=== PATIENT | male | born 1960 | race Caucasian/White ===

== ENCOUNTER 2017-07-07 10:35 | Emergency (ER) | payer OTHER ==
[2017-07-07] MEDS ORDERED: cloNIDine 0.1 MG TAB ONE (10:49)
[2017-07-07] MEDS ORDERED: methylPREDNISolone Sod Succ/PF 125 MG/2 ML VIAL ONE (10:56)
[2017-07-07] MEDS ORDERED: Water For Inject, Bacteriostat 30 ML ONE (10:56)
[2017-07-07] MEDS ORDERED: Magnesium Sulfate 2 GM/100 ML BAG ONE (10:56)
[2017-07-07 11:06] LABS: #Eosinphils 0.2 thou/uL (0.0-0.7); #Lymphocytes 1.8 thou/uL (1.20-3.40); #Monocytes 0.5 thou/uL (0.11-0.59); #Neutrophils 5.5 thou/uL (1.40-6.50); %Basophils 0.5 % (0.0-1.0); %Eosinophils 2.8 % (0.0-10.0); %Lymphocytes 22.4 % (21.0-51.0); %Monocytes 6.5 % (0.0-10.0); Hematocrit 50.3 % (42.0-52.0); Mean Platelet Volume 8.6 fL (7.4-10.4); Red Blood Cell (RBC) Count 5.24 mill/uL (4.70-6.10)
[2017-07-07 11:26] LABS: ALT (SGPT) 11 U/L (8-55); AST (SGOT) 12 U/L (5-34); Alkaline Phosphatase 78 U/L (40-150); Anion Gap 12 mmol/L (10-20); BUN (Urea Nitrogen) 21 mg/dL (8.4-25.7); Bilirubin, Total 0.5 mg/dL (0.2-1.2); CK (CPK) 75 U/L (30-200); Calc. Creatinine Clearance 0 mL/min (70-130); Calcium 9.3 mg/dL (7.8-10.44); Carbon Dioxide 23 mmol/L (22-29); Chloride 105 mmol/L (98-107); Estimated GFR-MDRD 59; Globulin 3.4 g/dL (2.4-3.5); Lipase 23 U/L (8-78); Protein, Total 7.3 g/dL (6.0-8.3)
[2017-07-07 11:29] LABS: Troponin I 0.047 ng/mL (< 0.028)
[2017-07-07] MEDS ORDERED: Labetalol HCl 100 MG/20 ML VIAL ONE (12:05)
--- NOTE | 2017-07-07 13:03 | RAD ---
PORTABLE AP CHEST XRAY: DATE: 07/07/17. HISTORY: Dyspnea. Onset of shortness of breath about 1 hour ago. COMPARISON: 12/09/16. FINDINGS: The cardiac silhouette and pulmonary vasculature are within normal limits. The lungs are clear. The osseous structures remain intact. There has been no interval change from the prior study. IMPRESSION: No acute cardiopulmonary process. POS: [facility]
== END 2017-07-07 17:10 | disposition short-term general hospital (02) ==
LOC: ERS 10:35
DX: J44.1 Chronic obstructive pulmonary disease with (acute) exacerbation (principal); I10 Essential (primary) hypertension; Z86.73 Personal history of transient ischemic attack (TIA), and cerebral infarction without residual deficits; E78.5 Hyperlipidemia, unspecified; F41.9 Anxiety disorder, unspecified; F32.9 Major depressive disorder, single episode, unspecified; F17.210 Nicotine dependence, cigarettes, uncomplicated; Z79.899 Other long term (current) drug therapy
CPT/HCPCS: 71010; 80053; 82550; 82553; 83690; 83880; 84484; 85025; 93005; 94640; 94760; 96365; 96375; J2930; J3475; J7620

== ENCOUNTER 2018-03-02 05:47 | Inpatient (IN) | payer OTHER ==
[2018-03-02 06:46] LABS: Prothrombin Time 13.4 SEC (12.0-14.7)
[2018-03-02 06:47] LABS: PTT 26.2 SEC (22.9-36.1)
[2018-03-02 06:50] LABS: #Eosinphils 0.1 thou/uL (0.0-0.7); #Lymphocytes 1.7 thou/uL (1.20-3.40); #Monocytes 1.5 thou/uL (0.11-0.59); #Neutrophils 11.4 thou/uL (1.40-6.50); %Basophils 0.2 % (0.0-1.0); %Eosinophils 0.9 % (0.0-10.0); %Lymphocytes 11.3 % (21.0-51.0); %Monocytes 9.9 % (0.0-10.0); %Neutrophils 77.7 % (42.0-75.0); Hemoglobin 15.3 g/dL (14.0-18.0); Mean Corpuscular HGB CONC 33.6 g/dL (32.0-36.0); Mean Corpuscular Hemoglobin 31.3 pg (27.0-31.0); Mean Corpuscular Volume 93.1 fL (78.0-98.0); Mean Platelet Volume 8.4 fL (7.4-10.4); Platelet Count 206 thou/uL (130-400); RBC Distribution Width 12.2 % (11.5-14.5); Red Blood Cell (RBC) Count 4.91 mill/uL (4.70-6.10); White Blood Cell (WBC) Count 14.6 thou/uL (4.8-10.8)
[2018-03-02 06:54] LABS: ALT (SGPT) 12 U/L (8-55); AST (SGOT) 17 U/L (5-34); Acetaminophen Less than 6.0 mcg/mL (10.0-30.0); Albumin 4.2 g/dL (3.5-5.0); Alcohol Less than 10 mg/dL (Less than 10); Alkaline Phosphatase 62 U/L (40-150); Anion Gap 16 mmol/L (10-20); BUN (Urea Nitrogen) 49 mg/dL (8.4-25.7); Bilirubin, Total 1.1 mg/dL (0.2-1.2); Calc. Creatinine Clearance 0 mL/min (70-130); Calcium 9.7 mg/dL (7.8-10.44); Carbon Dioxide 21 mmol/L (22-29); Chloride 105 mmol/L (98-107); Estimated GFR-MDRD 10; Globulin 3.1 g/dL (2.4-3.5); Glucose 124 mg/dL (70-105); Magnesium 2.6 mg/dL (1.6-2.6); Potassium 3.8 mmol/L (3.5-5.1); Protein, Total 7.3 g/dL (6.0-8.3); Salicylate Less than 8.0 mg/dL (15.0-30.0); Sodium 138 mmol/L (136-145)
[2018-03-02 07:01] LABS: CKMB 9.4 ng/mL (0-6.6); Troponin I 1.123 ng/mL (< 0.028)
[2018-03-02] MEDS ORDERED: Aspirin 300 MG Suppository ONE (07:02)
[2018-03-02 08:04] LABS: Bilirubin Negative (Negative); Blood, Urine Moderate (Negative); Clarity CLOUDY (Clear); Glucose, Urine (Dipstick) Negative (Negative); Leukocyte Small (Negative); Nitrite Negative (Negative); Protein, Urine (Dipstick) 100 mg/dL (Neg-Trace)
--- NOTE | 2018-03-02 08:06 | RAD ---
AP VIEW OF THE CHEST: INDICATION: Altered mental status. FINDINGS: There is cardiomegaly and pulmonary vascular congestion without appreciable pleural effusion or pneum othorax. No acute osseous abnormality is evident. IMPRESSION: Findings of congestive heart failure. POS: [facility]
[2018-03-02 08:09] LABS: Bacteria/HPF None Seen HPF (None Seen); Squamous Epithelial 21-50 HPF (0-3); WBC/HPF 21-50 HPF (0-3)
[2018-03-02 08:10] LABS: Specific Gravity, Urine 1.051 (1.002-1.036)
[2018-03-02 08:13] LABS: Hyaline Casts/LPF >50 HYALINE CAST LPF (0-3 Hyaline); Pathc Cast-AUWi Flag 35.61 (0-2.49); Yeast-AUWi Flag 39.2 (0-25.0)
[2018-03-02 08:15] LABS: Amphetamine Detected (NotDetected); Barbiturates Screen Not Detected (NotDetected); Benzodiazepine Screen Not Detected (NotDetected); Cocaine Metabolite Screen Not Detected (NotDetected); Medtox Control Line Valid? VALID (VALID); Medtox Reader # READER 4; Methadone Not Detected (NotDetected); Methamphetamine Detected (NotDetected); Opiate Screen Not Detected (NotDetected); Oxycodone Screen Not Detected (NotDetected); Phencyclidine (PCP) Not Detected (NotDetected); THC/Cannabinoid Screen Not Detected (NotDetected); Tricyclic Screen Not Detected (NotDetected)
[2018-03-02 08:24] LABS: Renal Epithelial 0-3 HPF (0-3); Transitional Epithelial 0-3 HPF (0-3)
[2018-03-02 08:25] LABS: Crystals/HPF 1+ CA OXALATE HPF (Negative)
[2018-03-02] MEDS ORDERED: cefTRIAXone\\ROCEPHIN 1 GM VIAL ONE (08:29)
--- NOTE | 2018-03-02 08:31 | CT ---
FINAL REPORT I agree with the preliminary report provided. No definite acute hemorrhage or hydrocephalus is prese nt. Subtle area of loss of cortical differentiation is seen involving the frontal cortex on image 23 of series 2 and involving the left insular ribbon that is better appreciated on the followup CTA exa mination. This is described in the CTA examination. There is interval remote lacunar infarction inv olving the left thalamus and the left caudate head. There are evolutionary changes involving the pre viously seen right periventricular white matter infarct seen within the right frontal lobe identified on the comparison MRI of the brain dated 04/16/11. There is severe chronic small-vessel white matter ischemic change. The skull and extracranial soft tissues are unremarkable. POS: [facility]
[2018-03-02] MEDS ORDERED: Azithromycin 500 MG VIAL ONE (08:57)
[2018-03-02 10:01] LABS: Troponin I 0.866 ng/mL (< 0.028)
[2018-03-02 13:41] LABS: Critical Call Chem Troponin I RESULT DECREASING; Troponin I 0.679 ng/mL (< 0.028)
[2018-03-02] MEDS ORDERED: ISOVUE-370 76%-LOCM 1 ML ONE (14:54)
[2018-03-02 15:35] VITALS: BMI 30.2
--- NOTE | 2018-03-02 16:20 | CT ---
PRELIMINARY REPORT/[facility]/EMERGENTY AFTER-HOURS PROCEDURE Addendum created by Brett López DO on 03/02/2018 6:51 AM Central Time ([place] & [place]) There is no cerebral mass effect, midline shift or evidence of intracranial hemorrhage. THIS REPORT C ONTAINS FINDINGS THAT MAY BE CRITICAL TO PATIENT CARE. The findings were verbally communicated via sharee ang conference with Dr. Yost at 6:50 AM CDT on 03/02/2018. The findings were acknowledged and u nderstood. Initial Report created on 03/02/2018 6:46 AM Central Time ([place] & [place]) CT Angiography Head With Intravenous Contrast CLINICAL HISTORY: 57 years old, male; Signs and symptoms; Weakness; Patient HX: Last seen normal 0200 by family. A&oxo. HX CVA with rt side deficits TECHNIQUE: Axial computed tomographic angiography images of the head with intravenous contrast using CT angiogra phy protocol. All CT scans at this facility use at least one of these dose optimization techniques: a utomated exposure control; mA and/or kV adjustment per patient size (includes targeted exams where do se is matched to clinical indication); or iterative reconstruction. MIP reconstructed images were created and reviewed. COMPARISON: CT Brain WO Con 2018-03-02 05:52 FINDINGS: Right internal carotid artery: There is 33% stenosis of the right paraclinoid internal carotid artery due to calcified plaque. No aneurysm. Right anterior cerebral artery: Unremarkable. No occlusion or significant stenosis. No aneurysm. Righ t middle cerebral artery: Unremarkable. No occlusion or significant stenosis. No aneurysm. Right posterior cerebral artery: Unremarkable. No occlusion or significant stenosis. No aneurysm. Right vertebral artery: Unremarkable as visualized. Left internal carotid artery: No acute process. Intracranial segment is patent with no significant st enosis. No aneurysm. Left anterior cerebral artery: Unremarkable. No occlusion or significant stenosis. No aneurysm. Left middle cerebral artery: There is an occluded middle M2 branch of the left middle cerebral artery . Left posterior cerebral artery: Unremarkable. No occlusion or significant stenosis. No aneurysm. Left vertebral artery: Unremarkable as visualized. Basilar artery: Unremarkable. No occlusion or significant stenosis. No aneurysm. Brain: There is a subtle 3.4 x 2.7 cm area of effacement of the supraganglionic left frontal cortex m easured on axial image 110. There is a 1.5 cm area of effacement of the insular ribbon on axial image 78. Findings are consistent with acute ischemic edema. The cerebral aspects score is 8/10 and this is less than one third of the left MCA territory. There is a severe burden of presumed chron ic small vessel ischemic disease hypodense lesions in the frontoparietal white matter and deep singh m atter structures. IMPRESSION: 1. There is a subtle 3.4 x 2.7 cm area of effacement of the supraganglionic left frontal cortex measu red on axial image 110. There is a 1.5 cm area of effacement of the insular ribbon on axial image 78. Findings are consistent with acute ischemic edema. The cerebral aspects score is 8/10 and this is le ss than one third of the left MCA territory. 2. There is an occluded middle M2 branch of the left middle cerebral artery. CT Angiography Neck With Intravenous Contrast TECHNIQUE: Axial computed tomographic angiography images of the neck with intravenous contrast using CT angiogra phy protocol. COMPARISON: No relevant prior studies available. FINDINGS: VASCULATURE: Right common carotid artery: Unremarkable. No significant stenosis. No dissection or occlusion. Right internal carotid artery: Unremarkable. Extracranial segment is patent with no significant steno sis. No dissection or occlusion. Right external carotid artery: Unremarkable. No occlusion. Right vertebral artery: Unremarkable. No significant stenosis. No dissection or occlusion. Left common carotid artery: Unremarkable. No significant stenosis. No dissection or occlusion. Left internal carotid artery: There is nonstenotic atherosclerotic calcification of the proximal left internal carotid artery. No dissection or occlusion. Left external carotid artery: Unremarkable. No occlusion. Left vertebral artery: Unremarkable. No significant stenosis. No dissection or occlusion. NECK: Bones/joints: There are multilevel spondylotic and disc degenerative changes of the spine. There is m ild to moderate spinal canal stenosis from C5-T1. No acute fracture. No dislocation. Soft tissues: Unremarkable as visualized. No mass. CAROTID STENOSIS REFERENCE USING NASCET CRITERIA: % ICA stenosis = (1 - narrowest ICA diameter/diameter of distal cervical ICA) x 100. Mild - <50% stenosis. Moderate - 50-69% stenosis. Severe - 70-94% stenosis. Near occlusion - 95-99% stenosis. Occluded - 100% stenosis. IMPRESSION: There is no high grade arterial stenosis, occlusion, dissection, or aneurysm in the neck. This interpretation was based upon the receipt of 1119 image(s). Thank you for allowing us to participate in the care of your patient. Dictated and Authenticated by: Brett López DO 03/02/2018 6:46 AM Central Time ([place] & [place]) FINAL REPORT I agree with the preliminary report provided. A subtle area of effacement is seen involving the supr acranial left frontal cortex on image 110. There is a small area of effacement and loss of cortical differentiation involving the anterior insular ribbon on image 78. There is new age-indeterminate la cunar infarction involving the left thalamus and left caudate head which was not present on the CT of the brain dated 04/15/11 nor 04/16/11 from [facility]. This may reflect interval chronic lacun ar strokes. There is right subcortical white matter infarct involving the right parietal region whic h was seen on the comparison examination. POS: [facility]
[2018-03-02] MEDS ORDERED: hydrALAZINE 20 MG/ML VIAL SLOW IVP PRN (17:39)
[2018-03-02] MEDS ORDERED: Labetalol HCl 100 MG/20 ML VIAL SLOW IVP PRN (17:39)
[2018-03-02] MEDS ORDERED: Sodium Chloride 0.45% 1,000 ML IV SCH (17:45)
[2018-03-02] MEDS: Heparin 10,000 UNITS/ 10 ML VIAL SLOW IVP SCH (19:14)
[2018-03-02] MEDS: Sodium Chloride 0.45% 1,000 ML IV SCH (19:28)
--- NOTE | 2018-03-02 21:33 | CON ---
DATE OF CONSULTATION: 03/02/2018 SERVICE: Pulmonary Medicine. REASON FOR CONSULTATION: IMCU patient. HISTORY OF PRESENT ILLNESS: The patient is a 57-year-old white male with past medical history signif icant for an ischemic stroke on the left side. The family says he has a residual limp and drags his foot a little bit. That being said, he is fully functional and independent in his ADLs. He was in h is usual state of health when he went to bed last night. At 2:00 in the morning, he was noted to be abnormal. He was brought to the emergency department. He demonstrates some features, possibly consi stent with a stroke. He seems to be neglecting much of his right side. That being said, he demonstr ates fairly decent strength. Because the time was unknown, he was not a candidate for TPA. His trop onins were elevated and he was initiated on a trial on a heparin drip. He cannot provide any additio nal elements of the history presently. He does not speak. He really does not follow directions on o ccasion, but sometimes he will. PAST MEDICAL HISTORY: 1. Hypertension. 2. Dyslipidemia. 3. Anxiety disorder. 4. Major depressive disorder. 5. History of stroke. 6. Tobacco abuse. 7. Medical noncompliance. PAST SURGICAL HISTORY: None. FAMILY HISTORY: Noncontributory. SOCIAL HISTORY: Positive for smoking 1 pack per day. He is greater than 97-kpch-troh history of doi ng so. He denies any significant alcohol use. He is positive on his urine drug screen for methamphe tamine. The family is not aware of any exposure to chemicals, dust asbestos or tuberculosis. ALLERGIES: No known drug allergies. MEDICATIONS: List of his inpatient medications was reviewed. No specific updates were made at this time. REVIEW OF SYSTEMS: This cannot be obtained as the patient is currently aphasic. LABORATORY DATA: WBC 14.6, hemoglobin 15.3, platelets 206,000. INR 1.0. D-dimer 0.3. Troponin is down trending from 1.1-0.7. BNP is low. Liver function studies are unremarkable. Lactate is low at 1.3. Creatinine 5.92, which is a significant change from baseline. BUN 49. Basic metabolic profil e is otherwise unremarkable. There are 21-50 white blood cells on his urinalysis. Hyaline casts are also identified. Urine drug screen is positive for amphetamines and methamphetamine. Otherwise, it is unremarkable. Plasma alcohol, acetaminophen, and salicylate are negative. IMAGING DATA: 1. Chest x-ray demonstrates pulmonary vascular congestion. Interstitial and alveolar opacifications are identified. 2. CT of the brain demonstrates subtle area of loss of cortical differentiation is seen in the front al cortex. 3. CT of the [place] of [place] demonstrates no obvious relieving lesion in the brain. There is no an eurysm. There is a subtle 3.4 x 2.7 area of effacement of the left frontal cortex. There is an occl uded branch of the left middle cerebral artery. ASSESSMENT: 1. Cerebrovascular accident. 2. Non-ST elevation myocardial infarction, likely secondary to stroke. 3. Acute kidney injury. 4. Polysubstance drug abuse with likely stimulant. PLAN: At this point, the patient has demonstrated hemodynamic stability. He can be transitioned out of Intermediate Care Unit to the stroke unit. He will need to work aggressively with physical thera py and occupational therapy in order to regain his function. Pulmonary or Critical Care will continu e to follow along for the time being.
[2018-03-03 02:02] LABS: #Eosinphils 0.2 thou/uL (0.0-0.7); #Lymphocytes 2.1 thou/uL (1.20-3.40); #Monocytes 1.3 thou/uL (0.11-0.59); #Neutrophils 9.9 thou/uL (1.40-6.50); %Eosinophils 1.8 % (0.0-10.0); %Lymphocytes 15.3 % (21.0-51.0); %Monocytes 9.5 % (0.0-10.0); %Neutrophils 73.4 % (42.0-75.0); Hemoglobin 15.4 g/dL (14.0-18.0); Mean Corpuscular HGB CONC 34.5 g/dL (32.0-36.0); Mean Corpuscular Volume 92.8 fL (78.0-98.0); Mean Platelet Volume 8.4 fL (7.4-10.4); Platelet Count 183 thou/uL (130-400); RBC Distribution Width 12.1 % (11.5-14.5); Red Blood Cell (RBC) Count 4.79 mill/uL (4.70-6.10); White Blood Cell (WBC) Count 13.4 thou/uL (4.8-10.8)
[2018-03-03] MEDS: Heparin 10,000 UNITS/ 10 ML VIAL SLOW IVP SCH (02:14)
[2018-03-03 02:24] LABS: Anion Gap 14 mmol/L (10-20); BUN (Urea Nitrogen) 46 mg/dL (8.4-25.7); Calc. Creatinine Clearance 42 mL/min (70-130); Calcium 9.3 mg/dL (7.8-10.44); Carbon Dioxide 22 mmol/L (22-29); Chloride 107 mmol/L (98-107); Estimated GFR-MDRD 24; Glucose 97 mg/dL (70-105); Magnesium 2.4 mg/dL (1.6-2.6); Phosphorus 3.5 mg/dL (2.3-4.7); Potassium 3.9 mmol/L (3.5-5.1); Sodium 139 mmol/L (136-145)
[2018-03-03] MEDS: Sodium Chloride 0.45% 1,000 ML IV SCH ×3 (05:52→17:49)
[2018-03-03] MEDS: Heparin 25,000 units/D5W 500 ML IV SCH (07:03)
--- NOTE | 2018-03-03 08:27 | HP ---
DATE OF ADMISSION: 03/02/2018 REASON FOR ADMISSION AND CHIEF COMPLAINT: Altered mental status. HISTORY OF PRESENT ILLNESS: Mr. Mckeon is a 57-year-old male with past medical history of hypertension and decreased LV function, was found to be unresponsive this morning. According to family, they spoke to him last night and he was in usual state of health. This morning, he was unresponsive. The patient usually lives in [place], but he went to the son's place this weekend and he was found unresponsive in his car at his son's place, so EMS was called. EMS found the patient unresponsive and the patient had eyes fixed to the left according to EMS, unable to see on the right side, found to be weak on the right side, so he was brought to the emergency room where he was evaluated and was found to have acute stroke with left middle cerebral artery occlusion. No obvious right-sided visual neglect and still weaker on the right side, right upper and lower extremities. The patient opens his eyes when called, but he is unable to say any word and fixed to see on the left side, not on the right. The patient was also found to have acute kidney injury with a creatinine of 4.9 and he had creatinine of 1.6 the last year. The patient also felt patient possibly has infiltrate in the right upper lobe or any pneumonia. The patient was given Rocephin and Zithromax and received aspirin as well as started on heparin infusion and admitted for further evaluation and management. PAST MEDICAL HISTORY: 1. Hypertension. 2. EKG revealed ejection fraction of 45%. Echo done last year in November. 3. Tobacco abuse. 4. The patient was noncompliant before and has history of anxiety and depression. PAST SURGICAL HISTORY: Nothing significant. CURRENT MEDICATIONS: The patient was supposed to be on amlodipine 10 mg daily, aspirin 81 mg daily, clonidine 0.2 b.i.d., simvastatin 20 mg daily, Zoloft 50 mg daily, losartan 50 mg daily. ALLERGIES: NKDA. FAMILY HISTORY: Nothing of interest. SOCIAL HISTORY: The patient lives with family. No history of alcohol and smokes 1 pack a day. REVIEW OF SYSTEMS: Unable to obtain. PHYSICAL EXAMINATION: GENERAL: He is not responsive. VITAL SIGNS: Temperature 98, pulse 86, respiration 20, blood pressure 140/70. HEENT: Head is normocephalic, atraumatic. Pupils equal and reactive to light. Nasopharynx is pale and dry. Hard and soft palate, no lesions seen. SKIN: Skin turgor decreased. NECK: Supple. No JVD. LUNGS: Bilateral air entry present, no rales, no rhonchi. HEART: S1, S2 regular. ABDOMEN: Soft, no distention, no tenderness. Normal bowel sounds present. RECTAL: Deferred. CENTRAL NERVOUS SYSTEM: The patient is not responding, not opens his eyes, but not able to say a word. He looks to the left side, unable to see on right side. He is able to move both right upper and lower extremity, but the power is 3-4/5 in right upper and lower extremities and 5/5 in left upper and lower extremities. Deep tendon reflex 2+ bilaterally. Plantars downgoing and on the left, but upgoing on the right. Sensory intact. LABORATORY DATA: CBC shows WBC 14.6, hemoglobin 15, hematocrit 45, platelets 206. Metabolic panel: Sodium 138, potassium 3.8, chloride 105, CO2 of 21, urea nitrogen 49, creatinine 5.9, glucose 124. CK-MB 9.4. Troponin I 1.123. Urinalysis negative. Urine toxicology screen positive for amphetamines and methamphetamines. Chest x-ray reported as pulmonary vascular congestion and cardiomegaly. CT scan of the brain, no evidence of acute infarct or bleeding. CT angio neck and brain revealed occlusion of left middle cerebral artery. EKG shows normal sinus rhythm, no acute ST-T wave changes seen. ASSESSMENT: 1. Acute ischemic stroke. 2. Left middle cerebral artery CVA 3. Acute kidney injury. 4. Altered mental status secondary to #1. 5. Gcr-ZR-wsivljy elevation myocardial infarction. 6. Questionable pneumonia, right upper lobe. 7. Hypertension. 8. Hyperlipidemia. PLAN: 1. Vital signs q.4 hours. 2. Activity: As tolerated. 3. Allergies: NKDA. 4. IV fluids D5 half at 70 mL per hour. 5. List home medications. 6. We will obtain Nephrology consult. 7. Neurology consult. 8. CBC and base met in the morning. 9. Labetalol 20 IVP q.6 hours p.r.n. 10. Cardiology consult. RENATE
--- NOTE | 2018-03-03 11:47 | PRG ---
DATE OF SERVICE: 03/03/2018 SERVICE: Pulmonary Medicine. INTERVAL HISTORY: There has been no neurologic recovery over the last 12 hours. He has not had any events either. There is no fevers. He is not having any nausea or vomiting. There has been no diar zoya. No reports of any bleeding. Otherwise, he is in a stable condition. He continues to have the right-sided hemineglect. He also has a fairly dense aphasia. That being said, he demonstrates exce llent strength throughout. PHYSICAL EXAMINATION: VITAL SIGNS: Currently afebrile with a T-max of 100.1, pulse 78, blood pressure 137/80, respirations 14, and saturation 98% on room air. GENERAL: The patient is awake and alert, in no apparent distress. LUNGS: Excellent air entry. Rhonchi are present, but clear with cough. There is no prolonged expir atory phase or wheezing appreciated. HEART: Normal rate, regular. ABDOMEN: Soft, nontender, nondistended. Bowel sounds are positive. MUSCULOSKELETAL: No cyanosis or clubbing. There is no pitting in the bilateral lower extremities. NEUROLOGIC: Grossly nonfocal. LABORATORY DATA: WBC 13.4, hemoglobin 15.4, platelets 183,000. PTT 54.1. Creatinine is beautifully down trending to 2.78, BUN 46. Basic metabolic profile, magnesium and phosphorus are all unremarkab le otherwise. Troponin down trending to 0.67. Urine drug screen is positive for amphetamines and me thamphetamine. Blood culture is growing coag negative Staph in 1/2, likely contaminant. Urine cultu re negative to date. ASSESSMENT: 1. Cerebrovascular accident. 2. Non-ST elevation myocardial infarction, secondary to stroke. 3. Acute kidney injury. 4. Polysubstance drug abuse, would likely stimulant. PLAN: The patient is currently neurologically stable. At this point, he can be transitioned to the stroke unit. He has no further requirements for inpatient Pulmonary or Critical Care opinion. If he is not swallowing in 1-2 days, the family will need to discuss whether or not a Dobbhoff tube or PEG tube is indicated in this patient. Truth be told, I would likely give him at least 3 or 4 weeks to determine whether or not he is going to make any progress from a neurologic perspective. We will con tinue IV hydration for the time being. His acute kidney injury was likely associated with prerenal i ssues. At this point, he has no further requirements for inpatient Pulmonary or Critical Care opinio n and we will sign off.
[2018-03-03] MEDS: Dextrose 5 %-0.45 % NaCl 1,000 ML IV SCH (18:26)
[2018-03-04] MEDS: Heparin 25,000 units/D5W 500 ML IV SCH ×2 (00:06→15:53)
[2018-03-04] MEDS: Heparin 10,000 UNITS/ 10 ML VIAL SLOW IVP SCH (00:16)
--- NOTE | 2018-03-04 04:44 | CON ---
DATE OF CONSULTATION: 03/03/2018 REFERRING PHYSICIAN: Dr. Martin Sim. REASON FOR CONSULTATION: Right-sided weakness. HISTORY OF PRESENT ILLNESS: Mr. Mckeon is a pleasant 57-year-old male who has been consulte d for evaluation of right-sided weakness. The patient's history is obtained from patient's girlfrien erna who was present at bedside. She reports that patient was found to be unresponsive this morning. Yonny forrest was in his usual state of health last night. This morning when she found him unresponsive, she had called EMS. He was brought to the [facility]. After being arrived here, he was note d to have weakness on his right side and was aphasic. He had a CT scan of the head done, which had s hown singh white differentiation loss on the left MCA distribution suggestive of acute ischemic infarc t. For this reason, he was not a candidate for IV tPA. He was also not a candidate for endovascular therapy due to findings of the CT scan. According to the family, there has not been any significant changes in his neurological function since admitted to the hospital. PAST MEDICAL HISTORY, PAST SURGICAL HISTORY, FAMILY HISTORY, SOCIAL HISTORY, CURRENT MEDICATIONS, ALL ERGIES: Could not be obtained. REVIEW OF SYSTEMS: Unable to perform. PHYSICAL EXAMINATION: VITAL SIGNS: Blood pressure of 141/70, pulse of 81, temperature of 98.8, respirations of 15, O2 sats 92% on room air. GENERAL: Well-developed, well-nourished male in no apparent distress. RESPIRATORY: Clear to auscultation bilaterally. CARDIOVASCULAR: Regular rate and rhythm. NEUROLOGIC: Mental status: The patient is awake and alert, but nonverbal. He does not follow any c ommands. Cranial nerves: Pupils are 3 mm and reactive. He has a left gaze deviation with a right h emineglect. There is a right facial droop noted. Motor exam showed flaccid right upper and right lo wer extremity. He has 0/5 strength in the right upper and right lower extremity. Sensory: He does not withdraw to pain on the right upper extremity, but does withdraw on the right lower extremity. LABORATORY DATA: Reviewed, which included CBC, coag panel, CMP, urinalysis, and [facility] WBC of 13.4, PTT of 67.6, BUN of 46, creatinine was 2.78. Troponin of 0.679. Urinalysis with small leukocyte esterase and 21-50 WBC. Urine drug screen was positive for methamp hetamines. IMAGING STUDIES: CT head without contrast was reviewed, which showed singh white differentiation loss and left MCA distribution suggestive of acute ischemic infarct. IMPRESSION: 1. Acute left middle cerebral artery distribution ischemic infarct. 2. Non-ST elevation myocardial infarction. 3. Polysubstance abuse. ASSESSMENT AND PLAN: Mr. Mckeon is a pleasant 57-year-old male who presented with an acute onset of right-sided weakness. Due to the CT scan already showing signs of ischemia and his last leta e well known was more than 8 hours, he was not a candidate for IV or TPA or endovascular therapy. At this time, I will recommend consulting PT, OT, speech therapy. I would recommend making him n.p.o. until further cleared by speech therapy. I agree with continuing heparin infusion stroke protocol. Continue supportive care. Thank you for consultation.
[2018-03-04 05:23] LABS: #Lymphocytes 1.5 thou/uL (1.20-3.40); #Monocytes 1.2 thou/uL (0.11-0.59); #Neutrophils 10.2 thou/uL (1.40-6.50); %Basophils 0.1 % (0.0-1.0); %Eosinophils 0.2 % (0.0-10.0); %Lymphocytes 11.4 % (21.0-51.0); %Neutrophils 79.2 % (42.0-75.0); Hemoglobin 14.4 g/dL (14.0-18.0); Mean Corpuscular HGB CONC 34.7 g/dL (32.0-36.0); Mean Corpuscular Hemoglobin 32.1 pg (27.0-31.0); Mean Corpuscular Volume 92.6 fL (78.0-98.0); Mean Platelet Volume 8.5 fL (7.4-10.4); Platelet Count 164 thou/uL (130-400); RBC Distribution Width 11.6 % (11.5-14.5); Red Blood Cell (RBC) Count 4.49 mill/uL (4.70-6.10); White Blood Cell (WBC) Count 12.9 thou/uL (4.8-10.8)
[2018-03-04] MEDS: Dextrose 5 %-0.45 % NaCl 1,000 ML IV SCH ×3 (05:26→18:23)
[2018-03-04 05:56] LABS: Anion Gap 13 mmol/L (10-20); BUN (Urea Nitrogen) 23 mg/dL (8.4-25.7); Calc. Creatinine Clearance 89 mL/min (70-130); Calcium 8.3 mg/dL (7.8-10.44); Carbon Dioxide 19 mmol/L (22-29); Chloride 103 mmol/L (98-107); Estimated GFR-MDRD 56; Glucose 483 mg/dL (70-105); Potassium 3.5 mmol/L (3.5-5.1); Sodium 131 mmol/L (136-145)
[2018-03-04] MEDS ORDERED: hydrALAZINE 20 MG/ML VIAL SLOW IVP PRN (09:44)
--- NOTE | 2018-03-04 14:52 | CON ---
DATE OF CONSULTATION: 03/04/2018 REASON FOR CONSULTATION: Hypertension. HISTORY OF PRESENT ILLNESS: Mr. Mckeon is an unfortunate 57-year-old gentleman who recently had a str maria e. This is followed by previous stroke. He continues to smoke and per his sister continues to use methamphetamine. He also has been noncompliant with his blood pressure medications. He recently presented with right-sided weakness. History is mainly obtained from his sister who is c urrently present. No chest pain or pressure noted. PAST MEDICAL HISTORY: As above including anxiety disorder, depression, stroke, tobacco abuse, noncom pliance, hypertension, hyperlipidemia. SOCIAL HISTORY: As above. ALLERGIES: None. MEDICATIONS: None. REVIEW OF SYSTEMS: Unobtainable. PHYSICAL EXAMINATION: VITAL SIGNS: Blood pressure 155/90, pulse 73, temperature 98.3. GENERAL: Right-sided weakness. NEUROLOGIC: The patient is alert and oriented times 3 with no focal neurologic deficits. HEENT: Sclerae without icterus. Mouth has moist mucous membranes with normal pallor. NECK: No JVD. Carotid upstroke brisk. No bruits bilaterally. LUNGS: Clear to auscultation with unlabored respirations. BACK: No scoliosis or kyphosis. CARDIAC: Regular rate and rhythm with normal S1 and S2. No S3 or S4 noted. No significant rubs, mu rmurs, thrills, or gallops noted throughout the precordium. PMI is not displaced. There is no osito ternal heave. ABDOMEN: Soft, nontender, nondistended. No peritoneal signs present. No hepatosplenomegaly. No ab normal striae. EXTREMITIES: 2+ femoral and 2+ dorsalis pedis pulses. No cyanosis, clubbing, or edema. SKIN: No gross abnormalities. PERTINENT LABS: Hemoglobin 14.4, creatinine 1.32. Peak troponin 1.1. IMPRESSION: 1. Recent stroke. 2. Hypertensive urgency. 3. Noncompliance. 4. Methamphetamine use. RECOMMENDATIONS: At this point, I recommend conservative therapy. Echo with Doppler to follow. Unf ortunately, given his noncompliance, continued tobacco and methamphetamine use. Options appear limit ed. We can certainly manage his blood pressure medicines while in the hospital, but I am concerned a bout his compliance at home. Would not recommend aggressive blood pressure treatment due to recent s troke. Currently, blood pressure is 150-160, which appears stable.
[2018-03-04] MEDS: Atorvastatin Calcium 10 MG TAB PO SCH (21:34)
[2018-03-04] MEDS: cloNIDine 0.2 MG TAB PO SCH (21:34)
[2018-03-05 05:26] LABS: #Lymphocytes 1.3 thou/uL (1.20-3.40); #Monocytes 1.1 thou/uL (0.11-0.59); %Basophils 0.1 % (0.0-1.0); %Eosinophils 0.4 % (0.0-10.0); %Lymphocytes 12.7 % (21.0-51.0); %Monocytes 10.8 % (0.0-10.0); %Neutrophils 76.1 % (42.0-75.0); Hemoglobin 14.9 g/dL (14.0-18.0); Mean Corpuscular HGB CONC 33.9 g/dL (32.0-36.0); Mean Corpuscular Hemoglobin 31.2 pg (27.0-31.0); Mean Corpuscular Volume 91.9 fL (78.0-98.0); Platelet Count 164 thou/uL (130-400); RBC Distribution Width 11.8 % (11.5-14.5); Red Blood Cell (RBC) Count 4.76 mill/uL (4.70-6.10); White Blood Cell (WBC) Count 10.4 thou/uL (4.8-10.8)
[2018-03-05 05:39] LABS: Anion Gap 11 mmol/L (10-20); BUN (Urea Nitrogen) 21 mg/dL (8.4-25.7); Calc. Creatinine Clearance 103 mL/min (70-130); Calcium 9.1 mg/dL (7.8-10.44); Carbon Dioxide 23 mmol/L (22-29); Chloride 103 mmol/L (98-107); Estimated GFR-MDRD 66; Glucose 115 mg/dL (70-105); Sodium 133 mmol/L (136-145)
[2018-03-05] MEDS: Dextrose 5 %-0.45 % NaCl 1,000 ML IV SCH ×2 (06:47→15:17)
[2018-03-05] MEDS: Heparin 25,000 units/D5W 500 ML IV SCH (06:51)
--- NOTE | 2018-03-05 07:20 | PDOC.CTH ---
Cardiology Progress Note - Subjective Pt sleepi. Non-verbal today - Objective Vital Signs Temp Pulse Resp BP BP Pulse Ox 03/05/18 04:00 98.5 F 56 L 18 151/83 H 99 03/05/18 00:00 99.8 F H 72 19 176/86 H 100 03/04/18 21:34 188/91 H 03/04/18 20:36 98.7 F 69 18 188/91 H 97 03/04/18 20:20 98.7 F 69 18 97 Admit Weight 223 lb 1 oz Weight 223 lb 1 oz 03/04/18 03/05/18 03/06/18 06:59 06:59 06:59 Intake Total 1690.4 Balance 1690.4 - Physical Examination General/Neuro: NAD Neck: no JVD present Lungs: CTA, unlabored respirations Heart: RRR Extremities: + edema B - Labs Result Diagrams: 03/05/18 04:49 03/05/18 04:49 Troponin/CKMB CK-MB (CK-2) 9.4 ng/mL (0-6.6) H* 03/02/18 06:30 Troponin I 0.679 ng/mL (< 0.028) H* 03/02/18 13:03 - Assessment/Plan 1. CVA 2. HTN, uncontrolled 3. Non-compliance 4. methamphetamine use BP improved this am. Keep BP higher than normal for CAD given recent CVA Troponin likely demand ischemia and not primary event. Unsure pt would benefit from aggressive CV management unless pt has an acute insult given the above
--- NOTE | 2018-03-05 10:59 | CON ---
DATE OF CONSULTATION: 03/04/2018 HISTORY: acute kidney injury has improved /smoking . With a combination of po lysubstance abuse creatinine 1.3 due to discontinuation of JOSEF inhibitors and with IV volume re pletion. REVIEW OF SYSTEMS: Not obtainable since the patient has to have speech. Denies any chest pain , shortness of breath, or syncopal episode. He does have some weakness of his extremities. No nause a, no vomiting, no fever or chills . MEDICATIONS: Heparin drip per hour, hydralazine 20 mg IV q.6 hours, Levaquin 750 mg q.24 hours . PAST MEDICAL HISTORY: The patient has diagnosis of NC, history of hypertension, coronary arter y disease, previously status post CVA, depression, anxiety, cancer in remission. PAST SURGICAL HISTORY: Status post prostate biopsy, status post prostatectomy. SOCIAL HISTORY: The patient lives in but currently living with his mother. The patient smoked for 50 years, one pack to half a pack a day, uses recreational drugs - methamphetamine. He is medic ally disabled. ALLERGIES: None. IMMUNIZATIONS: Not up to date. HOSPITALIZATIONS: Please see past medical history. PHYSICAL EXAMINATION: VITAL SIGNS: Blood pressure is 155/90, heart rate 73, respiratory rate 20, temperature 98.3, pulse o ximetry 100% on room air. GENERAL: Awake, lethargic, not in distress. There is a paucity of speech with this patient. SKIN: Adequate turgor. HEENT: He has pinkish conjunctiva. Sclerae nonicteric. NECK: No neck mass, no carotid bruits, no JVD. CHEST: No deformities. LUNGS: Clear breath sounds, no wheezing or crackles. HEART: Normal sinus rhythm. No murmur, gallops, no rubs. ABDOMEN: Globular, soft, nontender. EXTREMITIES: No edema, no deformities. LABORATORY DATA: Laboratories of 03/02/2018, the specific gravity was 1051. No pigmented granular c asts, hyaline casts greater than 50, rbc 7-10, protein is 100. On 03/02/2018, BUN 49, creatinine 5.9 2; on 03/03/2018, creatinine 2.78; on 03/04/2018, creatinine is 1.32. Sodium 131, potassium 3.5, chl oride 103, carbon dioxide 19, BUN 23. On 03/02/2018, of the brain shows chronic small vessel disease, evolutionary changes. CT circl e of Vu angio with contrast shows subtle 3.4 x 2.7 cm area of effacement of the supraganglionic l eft frontal cortex as well as effacement of insular ribbon on image 78. Findings suggestive of acute ischemic edema. ASSESSMENT AND PLAN: 1. Acute kidney injury. This is a hemodynamically mediated dysfunction. I suggested with a v joseline concentrated specific gravity of 1038. IV hydration was given as well as JOSEF inhibitors was disc ontinued with improvement of the renal function. For the moment, I agree with current management. T here is no indication for any dialytic intervention. 2. Status post cerebrovascular accident. Neurology following. 3. Hypertension. Adjust blood pressure medications as needed. I agree with current management.
[2018-03-05] MEDS: Aspirin 81 mg Enteric Coated Tablet PO SCH (12:48)
[2018-03-05] MEDS: Amlodipine 10 MG TAB PO SCH (12:49)
[2018-03-05] MEDS: Lisinopril 10 MG TAB PO SCH (12:50)
[2018-03-05] MEDS: cloNIDine 0.2 MG TAB PO SCH ×2 (12:50→21:28)
[2018-03-05] MEDS: Atorvastatin Calcium 10 MG TAB PO SCH (21:28)
[2018-03-06] MEDS: Heparin 25,000 units/D5W 500 ML IV SCH (00:03)
[2018-03-06 04:38] LABS: #Eosinphils 0.1 thou/uL (0.0-0.7); #Lymphocytes 1.7 thou/uL (1.20-3.40); #Monocytes 1.2 thou/uL (0.11-0.59); #Neutrophils 7.9 thou/uL (1.40-6.50); %Basophils 0.1 % (0.0-1.0); %Eosinophils 0.7 % (0.0-10.0); %Lymphocytes 15.1 % (21.0-51.0); %Monocytes 11.4 % (0.0-10.0); %Neutrophils 72.8 % (42.0-75.0); Hemoglobin 15.3 g/dL (14.0-18.0); Mean Corpuscular Hemoglobin 31.2 pg (27.0-31.0); Mean Corpuscular Volume 91.8 fL (78.0-98.0); Mean Platelet Volume 8.7 fL (7.4-10.4); Platelet Count 149 thou/uL (130-400); RBC Distribution Width 11.4 % (11.5-14.5); Red Blood Cell (RBC) Count 4.88 mill/uL (4.70-6.10); White Blood Cell (WBC) Count 10.9 thou/uL (4.8-10.8)
[2018-03-06 04:55] LABS: Anion Gap 13 mmol/L (10-20); BUN (Urea Nitrogen) 24 mg/dL (8.4-25.7); Calc. Creatinine Clearance 104 mL/min (70-130); Calcium 9.4 mg/dL (7.8-10.44); Carbon Dioxide 22 mmol/L (22-29); Chloride 104 mmol/L (98-107); Estimated GFR-MDRD 66; Glucose 105 mg/dL (70-105); Potassium 4.1 mmol/L (3.5-5.1); Sodium 135 mmol/L (136-145)
--- NOTE | 2018-03-06 06:44 | PDOC.CTH ---
Cardiology Progress Note - Subjective Pt non verbal with me. Awakens to voice only. - Objective Vital Signs Temp Pulse Resp BP BP Pulse Ox 03/06/18 04:00 98.9 F 62 18 161/82 H 98 03/06/18 00:00 99.0 F 67 18 149/95 H 97 03/05/18 21:28 99.0 F 71 18 134/79 97 03/05/18 20:00 99.0 F 71 18 134/79 97 Admit Weight 223 lb 1 oz Weight 223 lb 1 oz 03/04/18 03/05/18 03/06/18 06:59 06:59 06:59 Intake Total 1690.4 705.6 Balance 1690.4 705.6 - Physical Examination Neck: no JVD present Lungs: CTA, unlabored respirations Heart: PMI normal, RRR Abdomen: NT/ND, soft Extremities: + femoral B - Telemetry Telemetry Rhythm: sr - Labs Result Diagrams: 03/06/18 04:26 03/06/18 04:26 Troponin/CKMB CK-MB (CK-2) 9.4 ng/mL (0-6.6) H* 03/02/18 06:30 Troponin I 0.679 ng/mL (< 0.028) H* 03/02/18 13:03 - Assessment/Plan 1. CVA 2. HTN, uncontrolled 3. Non-compliance 4. methamphetamine use On norvasc, ACEI and clonidine BP stable ok from my standpoint to stop heparin Add BB Prognosis poor disposition?
[2018-03-06] MEDS ORDERED: Aspirin 325 mg Enteric Coated Tablet PO SCH (09:15)
[2018-03-06] MEDS: Lisinopril 10 MG TAB PO SCH ×2 (11:53→21:04)
[2018-03-06] MEDS: Amlodipine 10 MG TAB PO SCH (11:55)
[2018-03-06] MEDS: cloNIDine 0.2 MG TAB PO SCH (12:00)
[2018-03-06] MEDS: Aspirin 81 mg Enteric Coated Tablet PO SCH (14:58)
--- NOTE | 2018-03-06 15:04 | PQF ---
CLINICAL DOCUMENTATION IMPROVEMENT CLARIFICATION FORM: ICD-10 Updated PLEASE DO AN ADDENDUM TO THE PROGRESS NOTE WITH ANY DOCUMENTATION UPDATES OR ADDITIONS AND CARRY THROUGH TO DC SUMMARY. THANK YOU. DATE: 03/06/18 ATTN: Dr. Sim Please exercise your independent, professional judgment in responding to the clarification form. Clinical indicators are provided on the bottom of this form for your review Please check appropriate box(s): AMI TYPE: [ ] NSTEMI [ ] AMI Type II [ y] Demand ischemia [ ] Other diagnosis [ ] Unable to determine In addition, please specify: Present on Admission (POA): [ y ] Yes [ ] No [ ] Unable to determine CLINICAL INDICATORS - SIGNS / SYMPTOMS / LABS LABS 03/02: CK-MB 9.4 TROPONIN I 1.123 0.866 0.679 PULMONOLOGY CONSULT 03/02: TROPONIN IS DOWN TRENDING FROM 1.1- 0.7 NON-STEMI, LIKELY SECONDARY TO STROKE. PN 03/03-: NSTEMI CARDIOLOGY PN 03/05: TROPONIN LIKELY DEMAND ISCHEMIA AND NOT PRIMARY EVENT. RISKS: H&P 03/02: ACUTE ISCHEMIC STROKE. L MIDDLE CEREBRAL ARTERY CVA. QUANG. AMS. [id number] ELEVATION MYOCARDIAL INFARCTION. HTN CARDIOLOGY PN 03/05: METHAMPHETAMINE USE. TREATMENT: ORDER 03/04: HEPARIN GTT. DC'D 03/06 ORDER 03/04: ECOTRIN 81 MG PO DAILY. DC'D 03/06 Thank you, Xiomara (This form is maintained as a part of the permanent medical record) 2015 [employer], [employer]. All Rights Reserved Xiomara Martinez RN, BSN [email or web address] Office: [phone] [facility]
[2018-03-06] MEDS: cloNIDine 0.1 MG TAB PO SCH (21:04)
[2018-03-06] MEDS: Atorvastatin Calcium 10 MG TAB PO SCH (21:04)
[2018-03-06] MEDS ORDERED: Nystatin 500,000 UNITS/5 ML UDCUP PO SCH (21:30)
[2018-03-07 05:31] LABS: #Eosinphils 0.2 thou/uL (0.0-0.7); #Lymphocytes 1.6 thou/uL (1.20-3.40); #Neutrophils 7.1 thou/uL (1.40-6.50); %Basophils 0.4 % (0.0-1.0); %Lymphocytes 15.6 % (21.0-51.0); %Monocytes 10.3 % (0.0-10.0); %Neutrophils 71.7 % (42.0-75.0); Hemoglobin 15.6 g/dL (14.0-18.0); Mean Corpuscular HGB CONC 35.6 g/dL (32.0-36.0); Mean Corpuscular Hemoglobin 32.3 pg (27.0-31.0); Mean Corpuscular Volume 90.9 fL (78.0-98.0); Platelet Count 167 thou/uL (130-400); RBC Distribution Width 11.6 % (11.5-14.5); Red Blood Cell (RBC) Count 4.84 mill/uL (4.70-6.10)
[2018-03-07 05:45] LABS: Anion Gap 11 mmol/L (10-20); BUN (Urea Nitrogen) 28 mg/dL (8.4-25.7); Calc. Creatinine Clearance 98 mL/min (70-130); Calcium 9.5 mg/dL (7.8-10.44); Carbon Dioxide 23 mmol/L (22-29); Chloride 104 mmol/L (98-107); Estimated GFR-MDRD 62; Glucose 88 mg/dL (70-105); Sodium 134 mmol/L (136-145)
--- NOTE | 2018-03-07 05:53 | PDOC.CTH ---
Cardiology Progress Note - Subjective No signfiicant changes overnight - Objective Vital Signs Temp Pulse Resp BP BP BP Pulse Ox 03/07/18 04:00 98.5 F 63 18 141/80 H 97 03/06/18 23:33 98.9 F 57 L 20 149/97 H 95 03/06/18 21:04 170/100 H 03/06/18 20:55 98.9 F 57 L 20 97 03/06/18 20:00 98.3 F 61 18 139/89 97 Admit Weight 223 lb 1 oz Weight 223 lb 1 oz 03/05/18 03/06/18 03/07/18 06:59 06:59 06:59 Intake Total 705.6 Balance 705.6 - Labs Result Diagrams: 03/07/18 05:00 03/07/18 05:00 Troponin/CKMB CK-MB (CK-2) 9.4 ng/mL (0-6.6) H* 03/02/18 06:30 Troponin I 0.679 ng/mL (< 0.028) H* 03/02/18 13:03 - Assessment/Plan 1. CVA 2. HTN, uncontrolled 3. Non-compliance 4. methamphetamine use Pt on norvasc ACEI and ASA, statin hold BB secondary to low HR May consider adding low dose diuretic if needed. BP currently stable in the 140 's. Not sure pt will be compliant with meds at home (even less compliant with the increase in number of meds Rx). Will need to simplify medications Increase troponin may be secondary to recent CVA vs demand ischemia. Rx treatment
[2018-03-07] MEDS: cloNIDine 0.1 MG TAB PO SCH ×2 (09:45→23:27)
[2018-03-07] MEDS: Aspirin 325 mg Enteric Coated Tablet PO SCH (09:46)
[2018-03-07] MEDS: Amlodipine 10 MG TAB PO SCH (09:46)
[2018-03-07] MEDS: Lisinopril 10 MG TAB PO SCH ×2 (09:46→23:27)
[2018-03-07] MEDS: Nystatin 500,000 UNITS/5 ML UDCUP PO SCH ×2 (09:47→23:27)
--- NOTE | 2018-03-07 10:25 | PQF ---
CLINICAL DOCUMENTATION IMPROVEMENT CLARIFICATION FORM: ICD-10 Updated PLEASE DO AN ADDENDUM TO THE PROGRESS NOTE WITH ANY DOCUMENTATION UPDATES OR ADDITIONS AND CARRY THROUGH TO DC SUMMARY. THANK YOU. DATE: 03/07/18 ATTN: Dr. Sim Please exercise your independent, professional judgment in responding to the clarification form. Clinical indicators are provided on the bottom of this form for your review Please check appropriate box(s) to clarify if the following diagnosis has been ruled in or ruled out: QUESTIONABLE PNEUMONIA, R UPPER LOBE [ ] Ruled in diagnosis [ ] Continue to treat [ ] Resolved [ Y ] Ruled out diagnosis [ ] Cannot rule out diagnosis [ ] Other diagnosis [ ] Unable to determine In addition, please specify: Present on Admission (POA): [ Y ] Yes [ ] No [ ] Unable to determine For continuity of documentation, please document condition throughout progress notes and discharge summary. Thank You. CLINICAL INDICATORS - SIGNS / SYMPTOMS / LABS ED RECORD 03/02: R UPPER LOBE PNEUMONIA H&P 03/02: THE PT FELT POSSIBLY HAS INFILTRATE IN THE R UPPER LOBE OR ANY PNEUMONIA. QUESTIONABLE PNEUMONIA, R UPPER LOBE. RISKS: H&P 03/02: EMS FOUND THE PT UNRESPONSIVE. ACUTE ISCHEMIC STROKE. L MIDDLE CEREBRAL ARTERY CVA. QUANG. AMS, HTN. TREATMENT: ER RECORD 03/02: AZITHROMYCIN 500 MG IV & ROCEPHIN 1 GRAM IV GIVEN. CPOE 03/02: LEVAQUIN 750MG IV Q 24 HR. DC'D 03/06. Thank you, Xiomara (This form is maintained as a part of the permanent medical record) 2014 [employer]. All Rights Reserved Xiomara Martinez RN, BSN [email or web address] Office: [phone] [facility]
[2018-03-07] MEDS: Atorvastatin Calcium 10 MG TAB PO SCH (23:26)
[2018-03-08 05:18] LABS: #Eosinphils 0.3 thou/uL (0.0-0.7); #Monocytes 1.1 thou/uL (0.11-0.59); #Neutrophils 6.9 thou/uL (1.40-6.50); %Basophils 0.5 % (0.0-1.0); %Eosinophils 2.8 % (0.0-10.0); %Lymphocytes 18.9 % (21.0-51.0); %Monocytes 10.9 % (0.0-10.0); %Neutrophils 66.9 % (42.0-75.0); Hemoglobin 15.4 g/dL (14.0-18.0); Mean Corpuscular HGB CONC 34.8 g/dL (32.0-36.0); Mean Corpuscular Hemoglobin 31.8 pg (27.0-31.0); Mean Corpuscular Volume 91.1 fL (78.0-98.0); Mean Platelet Volume 8.7 fL (7.4-10.4); Platelet Count 178 thou/uL (130-400); RBC Distribution Width 11.4 % (11.5-14.5); Red Blood Cell (RBC) Count 4.86 mill/uL (4.70-6.10); White Blood Cell (WBC) Count 10.3 thou/uL (4.8-10.8)
[2018-03-08 05:21] LABS: Anion Gap 13 mmol/L (10-20); BUN (Urea Nitrogen) 31 mg/dL (8.4-25.7); Calc. Creatinine Clearance 97 mL/min (70-130); Calcium 9.5 mg/dL (7.8-10.44); Carbon Dioxide 21 mmol/L (22-29); Chloride 104 mmol/L (98-107); Estimated GFR-MDRD 61; Glucose 86 mg/dL (70-105); Potassium 4.1 mmol/L (3.5-5.1); Sodium 134 mmol/L (136-145)
[2018-03-08] MEDS: Amlodipine 10 MG TAB PO SCH (08:55)
[2018-03-08] MEDS: cloNIDine 0.1 MG TAB PO SCH (08:55)
[2018-03-08] MEDS: Aspirin 325 mg Enteric Coated Tablet PO SCH (08:55)
[2018-03-08] MEDS: Nystatin 500,000 UNITS/5 ML UDCUP PO SCH ×2 (08:56→22:40)
[2018-03-08] MEDS: Lisinopril 10 MG TAB PO SCH ×2 (08:56→22:35)
--- NOTE | 2018-03-08 11:22 | PDOC.CTH ---
Cardiology Progress Note - Subjective Resting comfortably. No complains. - Objective Vital Signs Temp Pulse Resp BP BP Pulse Ox 03/08/18 08:00 98.9 F 54 L 16 131/87 98 03/08/18 03:16 99.4 F 69 20 124/86 96 03/07/18 23:27 135/91 H Admit Weight 223 lb 1 oz Weight 223 lb 1 oz - Physical Examination General/Neuro: alert & oriented x3 Lungs: CTA Heart: RRR Abdomen: NT/ND Extremities: other: (no edema) - Telemetry Telemetry Rhythm: Sinus lucila 50s. Drops to 48 while sleeping - Labs Result Diagrams: 03/08/18 05:02 03/08/18 05:02 Troponin/CKMB CK-MB (CK-2) 9.4 ng/mL (0-6.6) H* 03/02/18 06:30 Troponin I 0.679 ng/mL (< 0.028) H* 03/02/18 13:03 - Assessment/Plan 1. CVA 2. HTN - improved control 2. Bradycardia - stable and asymptomatic. Drops to the 40s while sleeping. no intervention needed 4. Non-compliance 5. History of methamphetamine use Currently doing well. no changes to care or meds.
--- NOTE | 2018-03-08 13:55 | EKG ---
Test Reason : Blood Pressure : / mmHG Vent. Rate : 078 BPM Atrial Rate : 078 BPM P-R Int : 226 ms QRS Dur : 096 ms QT Int : 406 ms P-R-T Axes : 056 000 131 degrees QTc Int : 462 ms Sinus rhythm with 1st degree A-V block with Premature atrial complexes Inferior infarct , age undetermined T wave abnormality, consider lateral ischemia Abnormal ECG No ST elevation/ND Inverted T wave V5, V6, aVL Confirmed by KISHAN DELVALLE D.O. ([id number]), staff editor DAMIÁN KEARNS ([id number]) on 03/08/2018 1:55:27 PM Referred By: Confirmed By:KISHAN DELVALLE D.O.
[2018-03-08] MEDS ORDERED: cloNIDine 0.1 MG TAB PO SCH (21:00)
[2018-03-08] MEDS: Atorvastatin Calcium 10 MG TAB PO SCH (22:33)
[2018-03-09 05:37] LABS: #Basophils 0.1 thou/uL (0.0-0.2); #Eosinphils 0.2 thou/uL (0.0-0.7); #Lymphocytes 1.9 thou/uL (1.20-3.40); #Monocytes 0.8 thou/uL (0.11-0.59); #Neutrophils 6.8 thou/uL (1.40-6.50); %Basophils 0.7 % (0.0-1.0); %Eosinophils 2.4 % (0.0-10.0); %Lymphocytes 19.1 % (21.0-51.0); %Monocytes 8.4 % (0.0-10.0); %Neutrophils 69.4 % (42.0-75.0); Hemoglobin 15.4 g/dL (14.0-18.0); Mean Corpuscular HGB CONC 33.5 g/dL (32.0-36.0); Mean Corpuscular Hemoglobin 30.5 pg (27.0-31.0); Mean Corpuscular Volume 91.2 fL (78.0-98.0); Mean Platelet Volume 8.9 fL (7.4-10.4); Platelet Count 194 thou/uL (130-400); RBC Distribution Width 11.5 % (11.5-14.5); Red Blood Cell (RBC) Count 5.04 mill/uL (4.70-6.10); White Blood Cell (WBC) Count 9.7 thou/uL (4.8-10.8)
[2018-03-09 05:46] LABS: Anion Gap 13 mmol/L (10-20); BUN (Urea Nitrogen) 31 mg/dL (8.4-25.7); Calc. Creatinine Clearance 106 mL/min (70-130); Calcium 9.4 mg/dL (7.8-10.44); Carbon Dioxide 21 mmol/L (22-29); Chloride 104 mmol/L (98-107); Estimated GFR-MDRD 69; Glucose 85 mg/dL (70-105); Sodium 134 mmol/L (136-145)
[2018-03-09] MEDS: Lisinopril 10 MG TAB PO SCH ×2 (09:18→20:46)
[2018-03-09] MEDS: Aspirin 325 mg Enteric Coated Tablet PO SCH (09:18)
[2018-03-09] MEDS: Amlodipine 10 MG TAB PO SCH (09:18)
[2018-03-09] MEDS: Nystatin 500,000 UNITS/5 ML UDCUP PO SCH ×2 (09:19→20:46)
[2018-03-09] MEDS: Atorvastatin Calcium 10 MG TAB PO SCH (20:46)
[2018-03-10] MEDS: Lisinopril 10 MG TAB PO SCH ×2 (10:09→22:03)
[2018-03-10] MEDS: Amlodipine 10 MG TAB PO SCH (10:09)
[2018-03-10] MEDS: Nystatin 500,000 UNITS/5 ML UDCUP PO SCH ×2 (10:10→22:03)
[2018-03-10] MEDS: Aspirin 325 mg Enteric Coated Tablet PO SCH (10:10)
[2018-03-10 11:46] LABS: #Eosinphils 0.3 thou/uL (0.0-0.7); #Lymphocytes 1.7 thou/uL (1.20-3.40); #Monocytes 0.9 thou/uL (0.11-0.59); #Neutrophils 6.2 thou/uL (1.40-6.50); %Basophils 0.2 % (0.0-1.0); %Eosinophils 2.8 % (0.0-10.0); %Monocytes 9.8 % (0.0-10.0); %Neutrophils 68.2 % (42.0-75.0); Hemoglobin 16.2 g/dL (14.0-18.0); Mean Corpuscular HGB CONC 35.3 g/dL (32.0-36.0); Mean Corpuscular Volume 90.7 fL (78.0-98.0); Mean Platelet Volume 8.4 fL (7.4-10.4); Platelet Count 195 thou/uL (130-400); RBC Distribution Width 11.6 % (11.5-14.5); Red Blood Cell (RBC) Count 5.05 mill/uL (4.70-6.10)
[2018-03-10 12:03] LABS: Anion Gap 13 mmol/L (10-20); BUN (Urea Nitrogen) 31 mg/dL (8.4-25.7); Calc. Creatinine Clearance 96 mL/min (70-130); Calcium 9.4 mg/dL (7.8-10.44); Carbon Dioxide 20 mmol/L (22-29); Chloride 105 mmol/L (98-107); Estimated GFR-MDRD 61; Glucose 102 mg/dL (70-105); Potassium 4.1 mmol/L (3.5-5.1); Sodium 134 mmol/L (136-145)
[2018-03-10] MEDS: Atorvastatin Calcium 10 MG TAB PO SCH (22:03)
[2018-03-11] MEDS: Amlodipine 10 MG TAB PO SCH (08:39)
[2018-03-11] MEDS: Lisinopril 10 MG TAB PO SCH ×2 (08:40→18:45)
[2018-03-11] MEDS: Aspirin 325 mg Enteric Coated Tablet PO SCH (08:40)
[2018-03-11] MEDS: Nystatin 500,000 UNITS/5 ML UDCUP PO SCH ×2 (08:41→18:45)
[2018-03-11 12:10] VITALS: TEMP 97.3
[2018-03-11] MEDS: Atorvastatin Calcium 10 MG TAB PO SCH (18:45)
[2018-03-11 18:46] VITALS: BP 119/76
--- NOTE | 2018-03-12 12:46 | DIS ---
DATE OF ADMISSION: 03/02/2018 DATE OF DISCHARGE: 03/11/2018 ADMITTING DIAGNOSES: 1. Acute ischemic stroke. 2. Left middle cerebral artery cerebrovascular accident. 3. Acute kidney injury. 4. Altered mental status secondary to acute ischemic stroke. 5. Wki-EP-cusamdr elevation myocardial infarction. 6. Question of pneumonia, right upper lobe. 7. Hypertension. 8. Hyperlipidemia. FINAL DIAGNOSES: 1. Acute ischemic stroke, middle cerebral artery distribution, left. 2. Demand ischemia of myocardium. 3. Acute kidney injury, resolved. 4. Acute encephalopathy secondary to acute ischemic stroke, improved. 5. Hypertensive emergency and hypertension, uncontrolled, improved. 6. Hyperlipidemia. 7. Polysubstance abuse. BRIEF SUMMARY OF HOSPITAL COURSE: Mr. Mckeon is a 57-year-old, male admitted because of sudden onset of aphasia and weakness. The patient was found to have acute left middle cerebral artery distribution stroke with aphasia. He was also found to have acute kidney injury with creatinine of 5.9, but it came down to 1.2 after he was given fluids. The patient was also found to have elevated troponin I secondary to demand ischemia. His troponin was 1.12 , came down to 0.67. BNP was normal. The patient was initially admitted to [facility]. Patient is seeing his sheltered workshop worker, Dr. Jin. His impression was the patient has CVA and [id number] MO. He suggested the patient can be transferred to the stroke unit in view of hemodynamic stability. A consultation was done with neurologist. The patient was seen by Dr. Mccauley. He felt the patient has acute ischemic stroke, left middle cerebral artery distribution, and suggested physical therapy. The patient was also seen with wheelman, Dr. Johnson. He felt the patient has demand ischemia secondary to stroke, which resulted in elevation of his troponin I. He does not have chest pain or EKG changes. An echocardiogram was done, and echocardiogram revealed ejection fraction of 55%. So, the patient was started on physical therapy, and he was able to ambulate now with standby assistance on physical therapy. His speech was not completely normal. He was able to say one or two words. His blood pressure was controlled now with medications. So, initially he was evaluated for in pt rehab but was declined because of his insurance and also not accepted at retirement. The family was willing to take him home , so, he is ready for discharge. At the time of discharge, he was stable. His vital signs were stable. Lungs were clear. Heart sounds were regular. Abdomen was soft and nontender. Bowel sounds present. DISCHARGE MEDICATIONS: Include aspirin 325 mg daily, lisinopril 10 mg b.i.d., nystatin oral suspension for 10 days b.i.d., amlodipine 10 mg daily, simvastatin 20 mg daily. The patient will continue with home health and physical therapy. He will be followed up in 3 weeks. RENATE
== END 2018-03-11 18:53 | disposition home or self-care (01) | DRG 65 ==
LOC: ERS 05:47 → ERHOLD 07:45 → IMCU/EMU 15:03 → 2SE 03-03 15:52
PROVIDERS: ADMIT Internal Medicine; ATTEND Internal Medicine
DX: I63.512 Cerebral infarction due to unspecified occlusion or stenosis of left middle cerebral artery (principal); G81.91 Hemiplegia, unspecified affecting right dominant side; N17.9 Acute kidney failure, unspecified; I24.8 Other forms of acute ischemic heart disease; R47.01 Aphasia; I16.0 Hypertensive urgency; I10 Essential (primary) hypertension; F41.9 Anxiety disorder, unspecified; F32.9 Major depressive disorder, single episode, unspecified; F17.210 Nicotine dependence, cigarettes, uncomplicated; F15.10 Other stimulant abuse, uncomplicated; R00.1 Bradycardia, unspecified; I25.10 Atherosclerotic heart disease of native coronary artery without angina pectoris; Z91.14 Patient's other noncompliance with medication regimen; Z79.82 Long term (current) use of aspirin; Z79.899 Other long term (current) drug therapy; Z90.79 Acquired absence of other genital organ(s)
CPT/HCPCS: 36415; 36416; 51701; 70450; 70496; 70498; 71045; 80048; 80053; 80061; 80306; 80307; 81003; 81015; 82553; 83605; 83735; 83880; 84100; 84484; 85025; 85610; 85730; 87040; 87086; 87149; 93005; 93306; 96365; 96366; 96367; 96376; A4216; A4353; G8978-GP-CM; G8979-GP-CK; G8987-GO-CK; G8988-GO-CJ; G8996-GN-CK; G8996-GN-CM; G8997-GN-CI; G8997-GN-CJ; J0360; J0456; J0696; J1644; J1956; J2997

== ENCOUNTER 2018-03-31 00:45 | Observation (INO) | payer OTHER ==
[2018-03-31 01:28] LABS: #Basophils 0.1 thou/uL (0.0-0.2); #Eosinphils 0.3 thou/uL (0.0-0.7); #Lymphocytes 2.3 thou/uL (1.20-3.40); #Monocytes 1.2 thou/uL (0.11-0.59); %Basophils 0.6 % (0.0-1.0); %Eosinophils 2.4 % (0.0-10.0); %Lymphocytes 21.1 % (21.0-51.0); %Monocytes 10.6 % (0.0-10.0); %Neutrophils 65.3 % (42.0-75.0); Mean Corpuscular HGB CONC 35.1 g/dL (32.0-36.0); Mean Corpuscular Hemoglobin 32.5 pg (27.0-31.0); Mean Corpuscular Volume 92.5 fL (78.0-98.0); Mean Platelet Volume 8.7 fL (7.4-10.4); Platelet Count 233 thou/uL (130-400); RBC Distribution Width 11.6 % (11.5-14.5); Red Blood Cell (RBC) Count 4.61 mill/uL (4.70-6.10); White Blood Cell (WBC) Count 10.8 thou/uL (4.8-10.8)
[2018-03-31 01:51] LABS: ALT (SGPT) 22 U/L (8-55); AST (SGOT) 20 U/L (5-34); Albumin 4.4 g/dL (3.5-5.0); Alkaline Phosphatase 83 U/L (40-150); Anion Gap 16 mmol/L (10-20); BUN (Urea Nitrogen) 24 mg/dL (8.4-25.7); Bilirubin, Total 0.8 mg/dL (0.2-1.2); Calc. Creatinine Clearance 0 mL/min (70-130); Calcium 10.5 mg/dL (7.8-10.44); Carbon Dioxide 19 mmol/L (22-29); Chloride 111 mmol/L (98-107); Estimated GFR-MDRD 27; Globulin 3.1 g/dL (2.4-3.5); Glucose 96 mg/dL (70-105); Protein, Total 7.5 g/dL (6.0-8.3); Sodium 142 mmol/L (136-145)
[2018-03-31 01:56] LABS: CKMB 1.3 ng/mL (0-6.6); Troponin I 0.034 ng/mL (< 0.028)
[2018-03-31] MEDS ORDERED: Aspirin 325 MG TAB ONE (02:52)
[2018-03-31 05:03] LABS: Troponin I 0.032 ng/mL (< 0.028)
[2018-03-31] MEDS ORDERED: Acetaminophen 325 MG TAB PO PRN (07:40)
--- NOTE | 2018-03-31 07:57 | RAD ---
PORTABLE CHEST: HISTORY: Dyspnea. COMPARISON: 03/02/18. FINDINGS: The lung so are clear. Heart and mediastinum appear normal. Osseous structures appear unremarka ble. IMPRESSION: Unremarkable chest. POS: [facility]
[2018-03-31 08:10] LABS: Troponin I 0.025 ng/mL (< 0.028)
[2018-03-31 08:25] VITALS: BMI 30.8
[2018-03-31] MEDS ORDERED: Regadenoson 0.4 MG/5 ML SYRINGE ONE (09:15)
[2018-03-31] MEDS ORDERED: Amlodipine 10 MG TAB PO SCH (11:00)
[2018-03-31] MEDS ORDERED: Aspirin 325 mg Enteric Coated Tablet PO SCH (11:00)
[2018-03-31] MEDS ORDERED: Lisinopril 10 MG TAB PO SCH (11:00)
[2018-03-31 11:09] LABS: Troponin I 0.023 ng/mL (< 0.028)
--- NOTE | 2018-03-31 16:18 | NM ---
MYOCARDIAL PERFUSION SCAN: INDICATIONS: Chest pain. TECHNIQUE: The patient was given 9 millicuries of technetium labeled sestamibi for resting images and 27 millicu fantasma for stress imaging. The patient was stressed with Lexiscan protocol. The left ventricle was im aged with SPECT imaging in three planes. CT attenuation images were obtained. FINDINGS: There is normal activity throughout the left ventricle on stress images. No evidence of reversible i schemia identified. Wall motion shows mild global hypokinesis. The ejection fraction is recorded at 37%. IMPRESSION: No evidence of reversible ischemia. Decreased ejection fraction recorded. POS: [facility]
[2018-03-31] MEDS ORDERED: Sodium Chloride 0.45% 1,000 ML IV SCH (19:00)
[2018-03-31] MEDS ORDERED: Atorvastatin Calcium 10 MG TAB PO SCH (21:00)
[2018-04-01 06:00] LABS: Anion Gap 11 mmol/L (10-20); BUN (Urea Nitrogen) 24 mg/dL (8.4-25.7); Calc. Creatinine Clearance 82 mL/min (70-130); Calcium 9.2 mg/dL (7.8-10.44); Carbon Dioxide 23 mmol/L (22-29); Chloride 109 mmol/L (98-107); Estimated GFR-MDRD 50; Glucose 86 mg/dL (70-105); Potassium 4.1 mmol/L (3.5-5.1); Sodium 139 mmol/L (136-145)
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
[2018-04-01] MEDS ORDERED: Lisinopril 10 MG TAB PO SCH (09:00)
[2018-04-01] MEDS ORDERED: Amlodipine 10 MG TAB PO SCH (09:00)
[2018-04-01] MEDS ORDERED: Aspirin 325 mg Enteric Coated Tablet PO SCH (09:00)
--- NOTE | 2018-04-01 13:11 | CON ---
DATE OF CONSULTATION: 04/01/2018 REASON FOR CONSULTATION: Cardiomyopathy. HISTORY OF PRESENT ILLNESS: Mr. Mckeon is a 57-year-old gentleman who I have seen and evaluated in th e past. He has a previous history of CVA in addition to methamphetamine use and noncompliance. He r ecently presented with weakness. He states he was concerned about having another stroke. No chest p ain, pressure or shortness of breath noted. He did during his initial visit with Dr. Chiquis chao of shortness of breath, but during my visit states he has not had shortness of breath, although language is difficult due to CVA. PAST MEDICAL HISTORY: CVA x2, hyperlipidemia, hypertension, previous methamphetamine use, hypertensi ve urgency, chronic kidney disease. HOME MEDICATIONS: Include lisinopril, sertraline, amlodipine, aspirin and Zocor. ALLERGIES: None. SOCIAL HISTORY: He currently lives with his sister, although his girlfriend states they are in the p rocess of moving in with her. Social situation does not appear to be stable. REVIEW OF SYSTEMS: Difficult to obtain. PHYSICAL EXAMINATION: GENERAL: Patient is a pleasant male who is in no acute distress. The patient appears his stated age . VITAL SIGNS: Blood pressure 106/58, pulse 69, temperature 97.8. NEUROLOGIC: Expressive aphasia. HEENT: Sclerae without icterus. Mouth has moist mucous membranes with normal pallor. NECK: No JVD. Carotid upstroke brisk. No bruits bilaterally. LUNGS: Clear to auscultation with unlabored respirations. BACK: No scoliosis or kyphosis. CARDIAC: Regular rate and rhythm with normal S1 and S2. No S3 or S4 noted. No significant rubs, mu rmurs, thrills, or gallops noted throughout the precordium. PMI is not displaced. There is no osito ternal heave. ABDOMEN: Soft, nontender, nondistended. No peritoneal signs present. No hepatosplenomegaly. No ab normal striae. EXTREMITIES: 2+ femoral and 2+ dorsalis pedis pulses. No cyanosis, clubbing, or edema. SKIN: No gross abnormalities. PERTINENT LABS: Hemoglobin 15, creatinine 1.46. Recent echo suggesting LVEF of 50%-55% dated 03/05/2018. Stress test with myocardial perfusion study with no significant areas of ischemia with LVEF of 37%. IMPRESSION: 1. Cardiomyopathy? 2. Shortness of breath. 3. Dizziness. RECOMMENDATIONS: Mr. Mckeon's current situation is somewhat difficult. His LVEF on echo less than 1 month ago was felt to be normal. His recent LVEF was estimated at 37% on a nuclear stress study. Th is is likely somewhere between. At this point, he does not meet criteria for LifeVest. I am also so mewhat reluctant to proceed with a more aggressive approach if needed given history of polysubstance abuse and noncompliance. At this point, I recommend low dose aspirin. Continue atorvastatin. Add l ow dose Coreg. Can reassess as outpatient.
[2018-04-01 16:01] VITALS: BP 110/63; TEMP 98.8
[2018-04-01] MEDS ORDERED: Carvedilol 3.125 MG TAB PO SCH (21:00)
--- NOTE | 2018-04-02 12:58 | DIS ---
DATE OF ADMISSION: 03/31/2018 DATE OF DISCHARGE: 04/01/2018 ADMITTING DIAGNOSES: 1. Chest pain and shortness of breath, rule out myocardial infarction. 2. Hypertension. 3. Hypertensive heart disease. 4. Hyperlipidemia. 5. Status post cerebrovascular accident due to left middle cerebral artery infarction. FINAL DIAGNOSES: 1. Shortness of breath on exertion. No evidence of acute myocardial infarction, negative Cardiolite stress test. 2. Decreased left ventricular function with ejection fraction of 37%. 3. Hypertension, uncontrolled, improved. 4. Hypertensive heart disease. 5. Status post cerebrovascular accident, left middle cerebral artery. BRIEF SUMMARY OF HOSPITAL COURSE: Mr. Mckeon is a 57-year-old male admitted because of shor tness of breath, positive chest pain as well. patient has recent stroke with left MCA. The faustina flakita was admitted to rule out myocardial infarction. Serial cardiac enzymes were done, they were wi thin normal limits. A Cardiolite stress test done and it showed negative for ischemia, but showed de creased LV function with ejection fraction of 37%. In view of that, a Cardiology consult was done. The patient was seen by Dr. Johnson. He felt this could be cardiomyopathy. He suggested medical m anagement in view of his history of polysubstance abuse and noncompliance. He does not qualify for a LifeVest as well. At this point, he suggested medical management, adding low dose beta-mateo. Th e patient's shortness of breath improved and he is unable to ambulate with his walker. In view of th at, he is being discharged. At the time of discharge, he was stable. His vital signs were stable. Lungs were clear. Heart sounds regular. Abdomen soft, nontender. Bowel sounds present. DISCHARGE MEDICATIONS: Aspirin 325 mg daily, amlodipine 10 mg daily, sertraline 50 mg daily, lisinop ril 10 mg daily, Coreg 3.125 b.i.d., . He will continue with home health PT at home and he will come for followup in 2 weeks.
--- NOTE | 2018-04-05 15:10 | EKG ---
Test Reason : Blood Pressure : / mmHG Vent. Rate : 092 BPM Atrial Rate : 092 BPM P-R Int : 218 ms QRS Dur : 086 ms QT Int : 366 ms P-R-T Axes : 053 -13 003 degrees QTc Int : 452 ms Sinus rhythm with 1st degree A-V block with Premature atrial complexes Inferior infarct , age undetermined Left axis deviation No STEMI Abnormal ECG Confirmed by TAYLOR Barahona, ADAM ([id number]), brands editor BERTRAND BAEZ ([id number]) on 04/05/2018 3:10:19 PM Referred By: Confirmed By:ADAM VAZQUEZ M.D.
== END 2018-04-01 18:40 | disposition home or self-care (01) ==
LOC: ERS 00:45 → 2SW 05:00 → ERHOLD 05:00 → 2SW 07:26
PROVIDERS: ADMIT Internal Medicine; ATTEND Internal Medicine
DX: R06.02 Shortness of breath (principal); I69.920 Aphasia following unspecified cerebrovascular disease; I13.10 Hypertensive heart and chronic kidney disease without heart failure, with stage 1 through stage 4 chronic kidney disease, or unspecified chronic kidney disease; N18.9 Chronic kidney disease, unspecified; F15.11 Other stimulant abuse, in remission; E78.5 Hyperlipidemia, unspecified; Z79.82 Long term (current) use of aspirin; Z79.899 Other long term (current) drug therapy
CPT/HCPCS: 36415; 71045; 78452; 80048; 80053; 82553; 83880; 84484; 85025; 93005; 93017; 96360; 96361; 99406; A9500; G0378; G8996-GN-CJ; G8997-GN-CJ; J2785

== ENCOUNTER 2019-02-22 15:03 | Emergency (ER) | payer OTHER ==
--- NOTE | 2019-02-22 15:55 | CT ---
CT Brain WO Con: 02/22/2019 12:00 AM CLINICAL HISTORY: Seizure. IMAGING TECHNIQUE: Multiple CT images were obtained of the brain without IV contrast. COMPARISON: CT the brain dated 03/02/2018 FINDINGS: Infarct: There is interval remote infarct involving the left MCA distribution with areas of encephal omalacia involving left frontal lobe, left parietal lobe, left temporal lobe and portions of the left occipital lobe. There are remote lacunar infarcts involving the left thalamus and bilateral basa l ganglia. There is severe chronic small vessel white matter ischemic change.. Hemorrhage: None.. Hydrocephalus: None.. Basal cisterns: Normal.. Cerebral parenchyma: Normal.. Midline shift: None.. Cerebellum: Normal. Brainstem: Normal. OTHER: Calvarium: Intact.. Visualized Paranasal sinuses: Clear.. Extracranial soft tissues:Normal. IMPRESSION: 1. Interval remote left MCA distribution infarct. 2. Stable chronic ischemic change
[2019-02-22 16:08] LABS: #Eosinphils 0.3 thou/uL (0.0-0.7); #Lymphocytes 2.1 thou/uL (1.20-3.40); #Monocytes 0.7 thou/uL (0.11-0.59); #Neutrophils 8.1 thou/uL (1.40-6.50); %Basophils 0.1 % (0.0-1.0); %Eosinophils 2.9 % (0.0-10.0); %Lymphocytes 18.9 % (21.0-51.0); %Monocytes 6.3 % (0.0-10.0); %Neutrophils 71.8 % (42.0-75.0); Hemoglobin 16.2 g/dL (14.0-18.0); Mean Corpuscular Volume 93.9 fL (78.0-98.0); Platelet Count 220 thou/uL (130-400); RBC Distribution Width 12.8 % (11.5-14.5); Red Blood Cell (RBC) Count 5.23 mill/uL (4.70-6.10); White Blood Cell (WBC) Count 11.2 thou/uL (4.8-10.8)
[2019-02-22 16:31] LABS: ALT (SGPT) 23 U/L (8-55); AST (SGOT) 19 U/L (5-34); Albumin 4.1 g/dL (3.5-5.0); Alkaline Phosphatase 75 U/L (40-150); Anion Gap 24 mmol/L (10-20); BUN (Urea Nitrogen) 32 mg/dL (8.4-25.7); Bilirubin, Total 0.5 mg/dL (0.2-1.2); CK (CPK) 104 U/L (30-200); Calc. Creatinine Clearance 0 mL/min (70-130); Calcium 9.9 mg/dL (7.8-10.44); Carbon Dioxide 16 mmol/L (22-29); Chloride 102 mmol/L (98-107); Estimated GFR-MDRD 35; Globulin 3.6 g/dL (2.4-3.5); Glucose 143 mg/dL (70-105); Potassium 4.5 mmol/L (3.5-5.1); Protein, Total 7.7 g/dL (6.0-8.3); Sodium 137 mmol/L (136-145)
[2019-02-22 18:12] LABS: Bacteria/HPF None Seen HPF (None Seen); Bilirubin Negative (Negative); Blood, Urine Negative (Negative); Clarity Clear (Clear); Glucose, Urine (Dipstick) Normal (Negative); Leukocyte 25 Leu/uL (Negative); Mucous/LPF 1+ LPF (<2+); Nitrite Negative (Negative); Protein, Urine (Dipstick) 20 mg/dL (Neg-Trace); RBC/HPF 0-3 HPF (0-3); Squamous Epithelial 0-3 HPF (0-3); Urobilinogen Normal mg/dL (Less than 2)
== END 2019-02-22 18:43 | disposition home or self-care (01) ==
LOC: ERS 15:03
DX: R56.9 Unspecified convulsions (principal); E78.5 Hyperlipidemia, unspecified; I10 Essential (primary) hypertension; I25.2 Old myocardial infarction; F17.210 Nicotine dependence, cigarettes, uncomplicated; F41.9 Anxiety disorder, unspecified; F32.9 Major depressive disorder, single episode, unspecified; Z79.899 Other long term (current) drug therapy
CPT/HCPCS: 36415; 70450; 80053; 81003; 81015; 82550; 84484; 85025; 93005; 94760

== ENCOUNTER 2019-04-14 17:58 | Emergency (ER) | payer OTHER ==
--- NOTE | 2019-04-14 19:32 | CT ---
CT head noncontrast HISTORY: Seizure. COMPARISON: 02/22/2019. FINDINGS: There is no evidence of acute intracranial hemorrhage. Encephalomalacia from the old right middle cerebral artery infarct is similar in appearance to the previous study. Prominent chronic ischemic small vessel disease and old right posterior frontal lacunar infarcts are also stable. No ne w areas of mass effect or shift of midline structures. Visualized paranasal sinuses remain well aerated. IMPRESSION: Chronic-type findings are stable. No acute intracranial abnormalities are demonstrated.
[2019-04-14 19:48] LABS: #Basophils 0.1 thou/uL (0.0-0.2); #Eosinphils 0.1 thou/uL (0.0-0.7); #Lymphocytes 1.5 thou/uL (1.20-3.40); #Monocytes 0.9 thou/uL (0.11-0.59); #Neutrophils 13.3 thou/uL (1.40-6.50); %Basophils 0.6 % (0.0-1.0); %Eosinophils 0.9 % (0.0-10.0); %Lymphocytes 9.4 % (21.0-51.0); %Monocytes 5.6 % (0.0-10.0); %Neutrophils 83.5 % (42.0-75.0); Hemoglobin 16.9 g/dL (14.0-18.0); Mean Corpuscular HGB CONC 34.6 g/dL (32.0-36.0); Mean Corpuscular Hemoglobin 32.2 pg (27.0-31.0); Mean Corpuscular Volume 93.1 fL (78.0-98.0); Mean Platelet Volume 9.9 fL (7.4-10.4); Platelet Count 222 thou/uL (130-400); RBC Distribution Width 12.5 % (11.5-14.5); Red Blood Cell (RBC) Count 5.25 mill/uL (4.70-6.10); White Blood Cell (WBC) Count 15.9 thou/uL (4.8-10.8)
[2019-04-14 20:08] LABS: ALT (SGPT) 21 U/L (8-55); AST (SGOT) 15 U/L (5-34); Albumin 4.3 g/dL (3.5-5.0); Alkaline Phosphatase 78 U/L (40-150); Anion Gap 14 mmol/L (10-20); BUN (Urea Nitrogen) 23 mg/dL (8.4-25.7); Bilirubin, Total 0.3 mg/dL (0.2-1.2); Calc. Creatinine Clearance 0 mL/min (70-130); Carbon Dioxide 23 mmol/L (22-29); Chloride 104 mmol/L (98-107); Estimated GFR-MDRD 41; Globulin 3.5 g/dL (2.4-3.5); Glucose 111 mg/dL (70-105); Potassium 3.9 mmol/L (3.5-5.1); Protein, Total 7.8 g/dL (6.0-8.3); Sodium 137 mmol/L (136-145)
[2019-04-14] MEDS ORDERED: levETIRAcetam 500 MG/100 ML PREMIX BAG ONE (21:04)
[2019-04-14] MEDS ORDERED: levETIRAcetam In NaCl (Iso-Os) 1,500 MG in Premix Bag 1 BAG IVPB SCH (21:45)
== END 2019-04-14 22:35 | disposition home or self-care (01) ==
LOC: ERS 17:58
DX: G40.909 Epilepsy, unspecified, not intractable, without status epilepticus (principal); E78.5 Hyperlipidemia, unspecified; I10 Essential (primary) hypertension; I25.2 Old myocardial infarction; F41.9 Anxiety disorder, unspecified; F32.9 Major depressive disorder, single episode, unspecified; F17.210 Nicotine dependence, cigarettes, uncomplicated; Z79.82 Long term (current) use of aspirin; Z86.73 Personal history of transient ischemic attack (TIA), and cerebral infarction without residual deficits; Z79.899 Other long term (current) drug therapy
CPT/HCPCS: 70450; 80053; 84484; 85025; 93005; 94760; 96374; J1953

== ENCOUNTER 2020-06-16 08:45 | Inpatient (IN) | payer OTHER ==
[2020-06-16] MEDS ORDERED: Lorazepam 2 MG/ML VIAL ONE ×3 (08:49→17:01)
--- NOTE | 2020-06-16 09:27 | RAD ---
Portable frontal chest radiograph: 06/16/2020 COMPARISON: 03/31/2018 HISTORY: Fall, diaphoresis, altered mental status FINDINGS: There is mild widening of the superior mediastinum with enlargement of the cardiac silhouet te. No pneumothorax pleural fluid focal consolidation or alveolar edema. IMPRESSION: Prominent cardiac silhouette with mild widening of the superior mediastinum, likely secon loli to supine portable technique. This could be better assessed with a follow-up PA and lateral evaluation of the chest.
--- NOTE | 2020-06-16 09:29 | RAD ---
Radiograph pelvis one view: 06/16/2020 HISTORY: 59-year-old male status post post acute pelvic injury from fall FINDINGS: No pelvic fracture or dislocation identified. IMPRESSION: Negative
[2020-06-16] MEDS ORDERED: Lorazepam 2 MG/ML VIAL SLOW IVP SCH ×4 (09:30→23:45)
[2020-06-16] MEDS ORDERED: levETIRAcetam in NS 3,000 MG in Premix Bag 2 BAG IVPB SCH (09:30)
[2020-06-16 09:37] LABS: #Eosinphils 0.2 thou/uL (0.0-0.7); #Lymphocytes 2.7 thou/uL (1.20-3.40); #Neutrophils 9.9 thou/uL (1.40-6.50); %Basophils 0.1 % (0.0-1.0); %Eosinophils 1.2 % (0.0-10.0); %Lymphocytes 19.7 % (21.0-51.0); %Monocytes 7.1 % (0.0-10.0); %Neutrophils 71.9 % (42.0-75.0); Hemoglobin 17.2 g/dL (14.0-18.0); Mean Corpuscular HGB CONC 33.1 g/dL (32.0-36.0); Mean Corpuscular Hemoglobin 31.6 pg (27.0-31.0); Mean Corpuscular Volume 95.4 fL (78.0-98.0); Mean Platelet Volume 9.1 fL (7.4-10.4); Platelet Count 210 thou/uL (130-400); RBC Distribution Width 11.9 % (11.5-14.5); Red Blood Cell (RBC) Count 5.44 mill/uL (4.70-6.10); White Blood Cell (WBC) Count 13.8 thou/uL (4.8-10.8)
[2020-06-16 09:53] LABS: ALT (SGPT) 16 U/L (8-55); AST (SGOT) 13 U/L (5-34); Albumin 4.2 g/dL (3.5-5.0); Alkaline Phosphatase 86 U/L (40-110); Anion Gap 22 mmol/L (10-20); BUN (Urea Nitrogen) 27 mg/dL (8.4-25.7); Bilirubin, Total 0.4 mg/dL (0.2-1.2); Calc. Creatinine Clearance 0 mL/min (70-130); Calcium 9.5 mg/dL (7.8-10.44); Carbon Dioxide 15 mmol/L (22-29); Chloride 106 mmol/L (98-107); Estimated GFR-MDRD 36; Globulin 3.5 g/dL (2.4-3.5); Glucose 113 mg/dL (70-105); Potassium 4.3 mmol/L (3.5-5.1); Protein, Total 7.7 g/dL (6.0-8.3); Sodium 139 mmol/L (136-145)
--- NOTE | 2020-06-16 10:02 | CT ---
Head CT without contrast 06/16/2020: COMPARISON: 04/14/2019 HISTORY: Recurrent seizure, right-sided deficits, speech deficits TECHNIQUE: Axial CT imaging at 5 mm intervals from vertex through skull base without contrast FINDINGS: The visualized paranasal sinuses and mastoid air cells are well-aerated. No displaced monica rial fracture is seen. There is extensive encephalomalacia on the left consistent with extensive prior left MCA infarction. Multifocal hypodensity of the periventricular and deep white matter noted, evidence of prominent small vessel disease, unchanged as well. No intracranial hemorrhage. No significant interval change. IMPRESSION: Stable head CT as detailed above.
--- NOTE | 2020-06-16 10:04 | RAD ---
RIGHT KNEE 4 VIEWS: Date: 06/16/2020 HISTORY: Injury from a fall. Altered mental status. FINDINGS: Very mild osteoarthrosis and degenerative change without fracture, dislocation, joint effusion, or ot her acute process. IMPRESSION: No significant acute process. POS: AH
[2020-06-16 10:15] LABS: CKMB 1.8 ng/mL (0-6.6)
[2020-06-16] MEDS ORDERED: Labetalol HCl 100 MG/20 ML VIAL ONE (10:30)
[2020-06-16] MEDS ORDERED: Aspirin Chewable 81 MG TAB ONE (11:01)
[2020-06-16 11:31] LABS: Bilirubin Negative (Negative); Blood, Urine Negative (Negative); Glucose, Urine (Dipstick) Negative (Negative); Ketone, Urine Negative (Negative); Leukocyte Negative (Negative); Nitrite Negative (Negative); Protein, Urine (Dipstick) 30 mg/dL (Neg-Trace)
[2020-06-16 11:43] LABS: Clarity Clear (Clear)
[2020-06-16 11:44] LABS: Specific Gravity, Urine 1.018 (1.002-1.036)
[2020-06-16] MEDS ORDERED: Acetaminophen 650 MG Suppository PR PRN (12:32)
[2020-06-16] MEDS ORDERED: Acetaminophen 325 MG TAB PO PRN (12:32)
--- NOTE | 2020-06-16 12:48 | PDOC.HHP ---
Hospitalist HPI - History of Present Illness History of Present Illness: ADMISSION DATE: 06/16/2020 TIME OF ASSESSMENT: 1200 PRIMARY CARE PHYSICIAN: Jesús tejada CHIEF COMPLAINT: Breakthrough seizures HPI: Full to obtain history from the patient therefore obtained from his sister and ED records. According to his sister he appears to be at his baseline. Mr. Mckeon is a 59-year-old gentleman who has a history of a CVA with residual deficits who is noncommunicative at baseline and developed seizures since having his CVA. He was placed on Keppra which he has been compliant with. He has a history of drug abuse including methamphetamines and believed to have relapsed. His sister states that he was very upset yesterday due to the sudden of his dog. She suspects he may have used IV drugs. This morning he was walking at home and then witnessed to have a fall and seizure-like activity. Patient a ppeared to be seizing upon arrival to the emergency department and was treated with 2 mg of Ativan. ED COURSE: Patient was hypertensive with a blood pressure of 191/41 at presentation. O2 sat 100% on nonrebreather. PAST MEDICAL HISTORY: 1. Prostate cancer 2. CVA in 2010 and 2017, residual right-sided deficits 3. Hyperlipidemia 4. Hypertension 5. History of [place] 6. Anxiety 7. Depression 8. History of multi-drug abuse PAST SURGICAL HISTORY: 1. Prostate surgery SOCIAL HISTORY: Patient lives at home with his family. Unable to obtain information regarding recent drug use or alcohol consumption. According to the sister the patient smokes 1 pack/day. FAMILY HISTORY: Noncontributory ALLERGIES: No known drug allergies CURRENT MEDICATIONS: 1. Sertraline 50 mg p.o. daily as needed 2. Coreg 6.25 mg p.o. 3 times daily 3. Lisinopril 40 mg p.o. daily 4. Simvastatin 20 mg p.o. daily 5. Aspirin 81 mg p.o. daily 6. Keppra 500 mg p.o. twice daily VS: HR 80, BP 158/111, RR 21, O2 sat 100%, temp 97.9, axillary Hospitalist Results - Labs Result Diagrams: 06/16/20 09:22 06/16/20 09:22 Lab results: WBC 13.8 thou/uL (4.8-10.8) H 06/16/20 09:22 Hgb 17.2 g/dL (14.0-18.0) 06/16/20 09:22 Hct 51.9 % (42.0-52.0) 06/16/20 09:22 MCV 95.4 fL (78.0-98.0) 06/16/20 09:22 Plt Count 210 thou/uL (130-400) 06/16/20 09:22 Neutrophils % 71.9 % (42.0-75.0) 06/16/20 09:22 Sodium 139 mmol/L (136-145) 06/16/20 09:22 Potassium 4.3 mmol/L (3.5-5.1) 06/16/20 09:22 Chloride 106 mmol/L (98-107) 06/16/20 09:22 Carbon Dioxide 15 mmol/L (22-29) L 06/16/20 09:22 BUN 27 mg/dL (8.4-25.7) H 06/16/20 09:22 Creatinine 1.93 mg/dL (0.7-1.3) H 06/16/20 09:22 Glucose 113 mg/dL (70-105) H 06/16/20 09:22 Calcium 9.5 mg/dL (7.8-10.44) 06/16/20 09:22 Total Bilirubin 0.4 mg/dL (0.2-1.2) 06/16/20 09:22 AST 13 U/L (5-34) 06/16/20 09:22 ALT 16 U/L (8-55) 06/16/20 09:22 Alkaline Phosphatase 86 U/L (40-110) 06/16/20 09:22 CK-MB (CK-2) 1.8 ng/mL (0-6.6) 06/16/20 09:22 Troponin I 0.036 ng/mL (< 0.028) H 06/16/20 09:22 Serum Total Protein 7.7 g/dL (6.0-8.3) 06/16/20 09:22 Albumin 4.2 g/dL (3.5-5.0) 06/16/20 09:22 Urine Ketones Negative mg/dL (Negative) 06/16/20 11: Urine Blood Negative (Negative) 06/16/20 11: Urine Nitrite Negative (Negative) 06/16/20 11:20 Ur Leukocyte Esterase Negative (Negative) 06/16/20 11:20 Hospitalist H&P A/P - Problem (1) Breakthrough seizure Code(s): G40.919 - EPILEPSY, UNSP, INTRACTABLE, WITHOUT STATUS EPILEPTICUS Status: Acute Assessment and Plan: Possibly associated with drug abuse, known history of IVDU. Prolactin ordered. UDS ordered. Neuro consulted. Keppra given in the ED. Neuro checks. Seizure precautions. Awaiting MRI Brain. (2) Seizure disorder Code(s): G40.909 - EPILEPSY, UNSP, NOT INTRACTABLE, WITHOUT STATUS EPILEPTICUS Status: Chronic (3) History of CVA with residual deficit Code(s): I69.30 - UNSPECIFIED SEQUELAE OF CEREBRAL INFARCTION Status: Chronic Assessment and Plan: Right sided deficits at baseline. PT/OT consulted. Speech therapy consulted, unclear if any dysphagia at baseline. (4) CAD (coronary artery disease) Code(s): I25.10 - ATHSCL HEART DISEASE OF [place] CORONARY ARTERY W/O ANG PCTRS Status: Chronic Assessment and Plan: resume home medications once verified. Trop elevated. no chest pain. Continue to trend troponins Cardiac monitoring. (5) History of mixed drug abuse Code(s): F19.11 - OTHER PSYCHOACTIVE SUBSTANCE ABUSE, IN REMISSION Status: Acute Assessment and Plan: Suspected relapse due to recent of his dog. UDS pending. (6) Hypertension Code(s): I10 - ESSENTIAL (PRIMARY) HYPERTENSION Status: Chronic Assessment and Plan: Monitor BP. resume home meds once verified. (7) Acute on chronic renal insufficiency Code(s): N28.9 - DISORDER OF KIDNEY AND URETER, UNSPECIFIED; N18.9 - CHRONIC KIDNEY DISEASE, UNSPECIFIED Status: Acute Assessment and Plan: Monitor renal function gentle IV hydration. Consult nephrology (8) Anxiety and depression Code(s): F41.9 - ANXIETY DISORDER, UNSPECIFIED; F32.9 - MAJOR DEPRESSIVE DISORDER, SINGLE EPISODE, UNSPECIFIED Status: Chronic Assessment and Plan: resume home medications once verified. - Plan Plan: DVT Prophylaxis with mechanical SCDs. GI Prophylaxis with Famotidine. CODE STATUS FULL Surrogate decision maker is his sister Yumiko Milligan.
[2020-06-16 13:02] LABS: Troponin I 0.043 ng/mL (< 0.028)
[2020-06-16 13:37] LABS: Cocaine Metabolite Screen Not Detected (NotDetected); Medtox Reader # READER 4; Phencyclidine (PCP) Not Detected (NotDetected); THC/Cannabinoid Screen Not Detected (NotDetected)
[2020-06-16 13:38] LABS: Amphetamine Detected (NotDetected); Barbiturates Screen Not Detected (NotDetected); Benzodiazepine Screen Not Detected (NotDetected); Medtox Control Line Valid? VALID (VALID); Methadone Not Detected (NotDetected); Methamphetamine Detected (NotDetected); Opiate Screen Not Detected (NotDetected); Oxycodone Screen Not Detected (NotDetected); Tricyclic Screen Not Detected (NotDetected)
--- NOTE | 2020-06-16 15:39 | MRI ---
MRI BRAIN WITHOUT CONTRAST: Date: 06/16/2020 INDICATION: Seizures. Comparison made to recent CT from earlier today which showed diffuse encephalomalacia in the left cer ebral hemisphere from extensive prior left MCA distribution infarcts. There are prominent chronic isc hemic white matter changes. FINDINGS: Severe encephalomalacia and gliosis in the left cerebral hemisphere corresponding to the CT findings. Diffuse chronic ischemic white matter changes which appear severe in both cerebral hemispheres. Diffusion weighted images show a small focus of restricted diffusion in the right periventricular whi te matter consistent with an acute lacunar infarct in this region. No other acute infarct apparent. N o other restricted diffusion. No mass or edema. IMPRESSION: 1. Evidence of a new lacunar infarct in the right periventricular white matter. 2. Extensive encephalomalacia in the left cerebral hemisphere with gliosis and severe chronic ischem ic white matter changes seen in both cerebral hemispheres. The encephalomalacia in the left cerebral hemisphere involves temporal, frontal, and parietal lobes, and would explain patient's seizure disord er. 3. Contrast was withheld due to GFR and patient's inability to hold still. POS: CAROLYN
--- NOTE | 2020-06-16 17:01 | CON ---
NEUROLOGY CONSULTATION DATE OF CONSULTATION: 06/16/2020 REASON FOR CONSULTATION: Breakthrough seizures. HISTORY OF PRESENT ILLNESS: Mr. Mckeon is a 59-year-old male with history significant for prior CVA with residual right hemiparesis and aphasia, speaks in 1 to 2 word sentences, presented with breakthrough seizures. History is taken from the patient's sister. Per sister, he was very upset because of the of his dog yesterday and then he was using also IV drugs. This morning when he was walking home, they witnessed a fall and then had a seizure-like activity. The mother called the EMS and he was brought to the emergency room for further evaluation. He had another seizure in the emergency room and given 2 mg of Ativan and 3 g of Keppra. MRI was done, which was consistent with new lacunar infarct in the right periventricular white matter. He was also hypertensive with a blood pressure of 191/41. Urine tox screen also positive for methamphetamine. REVIEW OF SYSTEMS: Unobtainable due to the patient's mental status. History is obtained from review of the medical records, nursing staff and talking to the sister at the bedside. PAST MEDICAL HISTORY: Prostate cancer, CVA in 2010 and 2018 with residual right-sided deficits, hyperlipidemia, hypertension, history of prior myocardial infarction, anxiety, depression, polysubstance abuse. PAST SURGICAL HISTORY: Prostate surgery. SOCIAL HISTORY: The patient lives at home with his family. He speaks in 1 to 2 word sentences. Smokes one pack of cigarettes per day, uses alcohol and there is history of drug abuse. FAMILY HISTORY: Significant for epilepsy. ALLERGIES: NO KNOWN DRUG ALLERGIES. CURRENT MEDICATIONS: 1. Sertraline 50 mg daily. 2. Coreg 6.25 mg three times daily. 3. Lisinopril 40 mg daily. 4. Simvastatin 20 mg daily. 5. Aspirin 81 mg daily. 6. Keppra 500 mg p.o. twice daily. PHYSICAL EXAMINATION: VITAL SIGNS: Blood pressure 158/111, respiratory rate 21, temperature 97.9. General Appearance: awake but somnolent Eye: PERRL ENT: normocephalic atraumatic Neck: supple Respiratory: CTAB Cardiovascular: RRR Gastrointestinal: soft, non-tender Extremities: no cyanosis Skin: normal turgor Neurological: Mental status: Somnolent. Dies not follow commands or maintain eye contact CN [id number] intact except - right facial droop X dysarthria Motor: Right hemiparesis Sensory: Withdraws to nail bed pressure Cerebeller: Did not cooperate Gait: Deferred due to patient safety reasons. DATA REVIEWED: I reviewed the labs which were significant for white count of 13.8, and BUN of 27 and creatinine of 1.93 and hyperglycemia. Lab results: WBC 13.8 thou/uL (4.8-10.8) H 06/16/20 09:22 Hgb 17.2 g/dL (14.0-18.0) 06/16/20 09:22 Hct 51.9 % (42.0-52.0) 06/16/20 09:22 MCV 95.4 fL (78.0-98.0) 06/16/20 09:22 Plt Count 210 thou/uL (130-400) 06/16/20 09:22 Neutrophils % 71.9 % (42.0-75.0) 06/16/20 09:22 Sodium 139 mmol/L (136-145) 06/16/20 09:22 Potassium 4.3 mmol/L (3.5-5.1) 06/16/20 09:22 Chloride 106 mmol/L (98-107) 06/16/20 09:22 Carbon Dioxide 15 mmol/L (22-29) L 06/16/20 09:22 BUN 27 mg/dL (8.4-25.7) H 06/16/20 09:22 Creatinine 1.93 mg/dL (0.7-1.3) H 06/16/20 09:22 Glucose 113 mg/dL (70-105) H 06/16/20 09:22 Calcium 9.5 mg/dL (7.8-10.44) 06/16/20 09:22 Total Bilirubin 0.4 mg/dL (0.2-1.2) 06/16/20 09:22 AST 13 U/L (5-34) 06/16/20 09:22 ALT 16 U/L (8-55) 06/16/20 09:22 Alkaline Phosphatase 86 U/L (40-110) 06/16/20 09:22 CK-MB (CK-2) 1.8 ng/mL (0-6.6) 06/16/20 09:22 Troponin I 0.036 ng/mL (< 0.028) H 06/16/20 09:22 Serum Total Protein 7.7 g/dL (6.0-8.3) 06/16/20 09:22 Albumin 4.2 g/dL (3.5-5.0) 06/16/20 09:22 Urine Ketones Negative mg/dL (Negative) 06/16/20 11:20 Urine Blood Negative (Negative) 06/16/20 11:20 Urine Nitrite Negative (Negative) 06/16/20 11:20 Ur Leukocyte Esterase Negative (Negative) 06/16/20 11:20 ASSESSMENT AND PLAN: (1) Breakthrough seizure Code(s): G40.919 - EPILEPSY, UNSP, INTRACTABLE, WITHOUT STATUS EPILEPTICUS Status: Acute (2) Seizure disorder Code(s): G40.909 - EPILEPSY, UNSP, NOT INTRACTABLE, WITHOUT STATUS EPILEPTICUS Status: Chronic (3) Acute CVA Status: Acute (4) CAD (coronary artery disease) Code(s): I25.10 - ATHSCL HEART DISEASE OF [place] CORONARY ARTERY W/O ANG PCTRS Status: Chronic (5) History of mixed drug abuse Code(s): F19.11 - OTHER PSYCHOACTIVE SUBSTANCE ABUSE, IN REMISSION Status: Acute (6) Hypertension Code(s): I10 - ESSENTIAL (PRIMARY) HYPERTENSION Status: Chronic (7) Acute on chronic renal insufficiency Code(s): N28.9 - DISORDER OF KIDNEY AND URETER, UNSPECIFIED; N18.9 - CHRONIC KIDNEY DISEASE, UNSPECIFIED Status: Acute (8) Anxiety and depression Code(s): F41.9 - ANXIETY DISORDER, UNSPECIFIED; F32.9 - MAJOR DEPRESSIVE DISORDER, SINGLE EPISODE, UNSPECIFIED Status: Chronic Mr. Zaheer Mckeon is a 59-year-old male with history significant for prior cerebrovascular accident, intravenous drug abuse, seizure disorder, presented to the emergency room status post fall and two breakthrough seizures. The patient was already given Ativan and Keppra to control seizure activity. Continue Keppra 1000 mg IV q.12 hours. Observe seizure precautions. Neuro checks every 2 hours. Ativan 2 mg IV for seizure greater than 2 minutes. MRI of the brain reviewed which was consistent with new acute lacunar infarction. Permissive control of blood pressure at this time. Strict control of blood glucose. Check hemoglobin A1c, fasting lipid panel, and TSH. Telemetry, 2D echo and carotid Dopplers. N.p.o. until cleared by Speech. EEG to assess cortical irritability, which may require more adjustment of the medications. Continue medical management per primary team. Start aspirin and statin for secondary stroke prevention. PT/OT/Speech. We will continue to follow. Thank you for the consult. Job ID: [id number]
--- NOTE | 2020-06-16 17:49 | ULT ---
Renal ultrasound: 06/16/2020 COMPARISON: None HISTORY: Acute kidney injury TECHNIQUE: Multiplanar grayscale sonographic imaging of the kidneys and urinary bladder obtained. FINDINGS: Detailed assessment of the kidneys is limited secondary to body habitus. The right kidney m easures approximately 9.9 x 4.9 x 4.8 cm. Detailed assessment of the renal cortex is limited secondary to shadowing from bowel gas and body habitus. No right-sided hydronephrosis. Urinary bladde r grossly unremarkable. Left kidney measures approximately 11.3 x 5.6 x 5.1 cm. Evaluation of the cortex is limited. No hydronephrosis. IMPRESSION: Limited assessment of the kidneys with no evidence for hydronephrosis.
[2020-06-16 18:02] VITALS: BMI 32.8
[2020-06-16] MEDS: Sodium Chloride 0.9% 1,000 ML IV SCH (19:01)
[2020-06-16] MEDS: Famotidine/PF 20 mg/2ml Vial SLOW IVP SCH (22:31)
--- NOTE | 2020-06-17 00:27 | CON ---
DATE OF CONSULTATION: This is a Nephrology consult. REASON FOR CONSULTATION: Elevated creatinine. HISTORY OF PRESENTING ILLNESS: This is a very pleasant 59-year-old gentleman, presented to the hospital with altered mental status and had a seizure disorder. The patient can give no further history. The patient was hypertensive and his creatinine was 1.9; prior baseline was 1.7 up to 2.4 a year ago; he had peaked to 5.9 in 2018. The patient had a history of methamphetamine use. PAST MEDICAL HISTORY: Prostate cancer, history of CVA, hypertension, hyperlipidemia, depression, anxiety, multiple drug use. FAMILY HISTORY: Negative for ESRD. ALLERGIES: REVIEWED. HOME MEDICATIONS: List reviewed. HOSPITAL MEDICATION: List reviewed. REVIEW OF SYSTEMS: 15-point review of system was performed, negative except for positives noted above. HEENT: Eyes intact, no diplopia. Ears: No hearing loss or earache. Nose: No discharge or bleeding. Chest: No cough or phlegm. Abdomen: No nausea or vomiting. Genitourinary: No hematuria. No Martinez catheter. Musculoskeletal: No low back pain. No joint swelling or pain. Neurological: No syncope. No seizures. Skin: No complaints of rash or itching. Psychiatric: No depression. Constitutional: No weight loss or loss of appetite. PHYSICAL EXAMINATION: General: Patient awake, but nonverbal. Vital Signs: Afebrile, pulse 70, breathing at 16, blood pressure 130/70. HEENT: Head normocephalic and atraumatic. Eyes intact, no ulcers. Nose intact, no ulcers. Ears intact, no ulcers. Neck: Supple. No JVD. Chest: Symmetrical and clear. Cardiovascular: Shows S1 and S2, no rub, no murmur. Gastrointestinal: Abdomen is soft, bowel sounds positive. Extremities: Show no edema or ulcers. Skin: Shows no rash or petechiae. Musculoskeletal: Shows no joint swelling or stiffness. Genitourinary: Shows no Martinez or CVA tenderness. Neurologic: Patient is confused. LABS: Reviewed. ASSESSMENT: 1. Acute kidney injury, chronic kidney disease, most likely decreased effective arterial blood volume. Continue hydration. 2. Hypertension, stable. 3. Anemia, stable. 4. Medication based on GFR appropriate. Job ID: [id number]
[2020-06-17 05:52] LABS: #Eosinphils 0.1 thou/uL (0.0-0.7); #Monocytes 0.9 thou/uL (0.11-0.59); #Neutrophils 6.8 thou/uL (1.40-6.50); %Basophils 0.2 % (0.0-1.0); %Eosinophils 1.3 % (0.0-10.0); %Lymphocytes 20.4 % (21.0-51.0); %Monocytes 8.7 % (0.0-10.0); %Neutrophils 69.4 % (42.0-75.0); Hemoglobin 15.3 g/dL (14.0-18.0); Mean Corpuscular HGB CONC 33.7 g/dL (32.0-36.0); Mean Corpuscular Hemoglobin 32.7 pg (27.0-31.0); Mean Platelet Volume 9.2 fL (7.4-10.4); Platelet Count 167 thou/uL (130-400); RBC Distribution Width 11.9 % (11.5-14.5); Red Blood Cell (RBC) Count 4.69 mill/uL (4.70-6.10); White Blood Cell (WBC) Count 9.8 thou/uL (4.8-10.8)
[2020-06-17 06:14] LABS: Anion Gap 12 mmol/L (10-20); BUN (Urea Nitrogen) 16 mg/dL (8.4-25.7); Calc. Creatinine Clearance 93 mL/min (70-130); Calcium 8.7 mg/dL (7.8-10.44); Carbon Dioxide 23 mmol/L (22-29); Chloride 107 mmol/L (98-107); Estimated GFR-MDRD 57; Glucose 76 mg/dL (70-105); Potassium 3.8 mmol/L (3.5-5.1); Sodium 138 mmol/L (136-145)
[2020-06-17] MEDS ORDERED: FLU VACC QS2020-21(6MOS UP)/PF 60 MCG/0.5 ML SYRINGE IM ONE (09:00)
[2020-06-17] MEDS: levETIRAcetam in NS 1,000 MG in Premix Bag 1 BAG IVPB SCH ×2 (09:53→20:13)
[2020-06-17] MEDS: Famotidine/PF 20 mg/2ml Vial SLOW IVP SCH ×2 (09:53→20:13)
--- NOTE | 2020-06-17 11:00 | PDOC.HOSPP ---
- Subjective Encounter Date: 06/17/20 Encounter Time: 10:00 Subjective: Patient is getting electroencephalogram study. No seizure episode noted overnight. He is on Keppra thousand IV twice daily. - Objective Vital Signs & Weight: Vital Signs (12 hours) Temp Pulse Resp BP Pulse Ox 06/17/20 09:41 97.0 F L 60 16 140/93 H 97 06/17/20 04:00 98.0 F 65 12 129/71 97 06/17/20 00:00 98.4 F 67 12 135/60 94 L Weight Weight 235 lb I&O: 06/16/20 06/17/20 06/18/20 06:59 06:59 06:59 Intake Total 701 Balance 701 Result Diagrams: 06/17/20 05:28 06/17/20 05:28 Additional Labs: Accuchecks 06/17/20 06/17/20 06/16/20 06:01 00:04 20:43 POC Glucose 71 80 79 Hospitalist ROS - Medication Medications: Active Medications Generic Name Dose Route Start Last Admin Trade Name Zhen PRN Reason Stop Dose Admin Famotidine 20 mg 06/16/20 21:00 06/17/20 09:53 Famotidine/Pf 20 Mg/2ml Vial SLOW IVP 20 mg Q12HR LEXA Administration Sodium Chloride 1,000 mls @ 65 mls/hr 06/16/20 12:45 06/16/20 19:01 Normal Saline 0.9% IV 1,000 mls .[id number] LEXA Administration Levetiracetam 1,000 mg/ Device 100 mls @ 200 mls/hr 06/17/20 09:00 06/17/20 09:53 IVPB 100 mls BID LEXA Administration - Exam General Appearance: NAD General - other findings: Sleep electroencephalogram study ongoing. ENT: normocephalic atraumatic Neck: supple Heart: RRR Respiratory: CTAB, normal chest expansion Gastrointestinal: soft, normal bowel sounds Neurological: no new deficit Psychiatric: not oriented Hosp A/P - Plan (1) Breakthrough seizure (2) Seizure disorder Code(s): G40.909 - EPILEPSY, UNSP, NOT INTRACTABLE, WITHOUT STATUS EPILEPTICUS Status: Chronic Code(s): G40.919 - EPILEPSY, UNSP, INTRACTABLE, WITHOUT STATUS EPILEPTICUS Status: Acute Assessment and Plan: ?associated with drug abuse, known history of IVDU. UDS shows amphetamine and meth positive. UA is negative for any sign of infection. . Neuro checks. Seizure precautions. CVA new diagnosis with old pre-existing CVA with residual deficits on the right side. -MRI of the brain shows evidence of new lacunar infarct in the right periventricular white matter. Extensive encephalomalacia in the cerebral hemisphere -He is on aspirin as well as statin. Also starting him on Coreg and Norvasc as part of blood pressure medication regimen at home. TSH in the normal range we will get A1c as well as lipid panel in the context of the new diagnosis of a stroke. (4) CAD (coronary artery disease) Code(s): I25.10 - ATHSCL HEART DISEASE OF [place] CORONARY ARTERY W/O ANG PCTRS Status: Chronic Assessment and Plan: resume home medications once verified. Trop elevated. no chest pain. Continue to trend troponins Cardiac monitoring. -Continue with aspirin statin as well as Coreg (5) History of mixed drug abuse Code(s): F19.11 - OTHER PSYCHOACTIVE SUBSTANCE ABUSE, IN REMISSION Status: Acute Assessment and Plan: Suspected relapse due to recent of his dog. UDS pending. (6) Hypertension -Norvasc and lisinopril. (7) Acute on chronic renal insufficiency -Appears his Kidney function at baseline creatinine is around 1.3. (8) Anxiety and depression Code(s): F41.9 - ANXIETY DISORDER, UNSPECIFIED; F32.9 - MAJOR DEPRESSIVE DISORDER, SINGLE EPISODE, UNSPECIFIED Status: Chronic Assessment and Plan: resume home medications once verified. DVT Prophylaxis with mechanical SCDs. GI Prophylaxis with Famotidine. CODE STATUS FULL Surrogate decision maker is his sister Yumiko Milligan.
[2020-06-17] MEDS: Sodium Chloride 0.9% 1,000 ML IV SCH (11:26)
--- NOTE | 2020-06-17 11:33 | PRG ---
DATE OF SERVICE: 06/17/2020 SUBJECTIVE: A 59-year-old gentleman being seen for acute kidney injury. The patient denies any nausea, vomiting, or chest pain. OBJECTIVE: GENERAL: The patient is awake, alert. VITAL SIGNS: Pulse 60, breathing 16, blood pressure HEENT: Head normocephalic and atraumatic. Eyes intact, no ulcers. Nose intact, no ulcers. Ears intact, no ulcers. NECK: Supple. No JVD. CHEST: Symmetrical and clear. CARDIOVASCULAR: Shows S1 and S2, no rub, no murmur. GASTROINTESTINAL: Abdomen is soft, bowel sounds positive. EXTREMITIES: Show no edema or ulcers. SKIN: Shows no rash or petechiae. MUSCULOSKELETAL: Shows no joint swelling or stiffness. GENITOURINARY: Shows no Martinez or CVA tenderness. NEUROLOGIC: Motor intact. Cranial nerves intact. LABORATORY DATA: Labs showed hemoglobin 15, creatinine 1.3. ASSESSMENT: 1. Acute kidney injury, improved. 2. Hypertension, stable. 3. Anemia, stable. 4. Medication based on GFR appropriate. Job ID: [id number]
[2020-06-17] MEDS ORDERED: Aspirin 300 MG Suppository PR SCH (12:15)
--- NOTE | 2020-06-17 13:48 | PDOC.NEUPN ---
- Subjective Encounter Date: 06/17/20 Subjective: Mr. Mckeon denies any new complaints or seizures in the last 24 hours. - Objective Vital Signs & Weight: Vital Signs (12 hours) Temp Pulse Pulse Pulse Resp BP BP 06/17/20 11:49 97.3 F L 61 23 H 06/17/20 11:37 97.3 F L 61 23 H 06/17/20 09:41 97.0 F L 60 16 06/17/20 08:56 64 63 149/93 H 148/97 H 06/17/20 04:00 98.0 F 65 12 BP Pulse Ox 06/17/20 11:49 139/91 H 97 06/17/20 11:37 139/91 H 97 06/17/20 09:41 140/93 H 97 06/17/20 08:56 06/17/20 04:00 129/71 97 Weight Weight 235 lb I&O: 06/16/20 06/17/20 06/18/20 06:59 06:59 06:59 Intake Total 701 Balance 701 Result Diagrams: 06/17/20 05:28 06/17/20 05:28 Additional Labs: Accuchecks 06/17/20 06/17/20 06/16/20 06:01 00:04 20:43 POC Glucose 71 80 79 Radiology Reviewed by me: Yes EKG Reviewed by me: Yes ROS - Review of Systems ROS unobtainable: due to mental status (Somnolent) - Medication Medications: Active Medications Generic Name Dose Route Start Last Admin Trade Name Freq PRN Reason Stop Dose Admin Aspirin 300 mg 06/17/20 12:15 06/17/20 12:46 Aspirin 300 Mg Suppository UT 06/17/20 14:15 300 mg NOW LEXA Administration Famotidine 20 mg 06/16/20 21:00 06/17/20 09:53 Famotidine/Pf 20 Mg/2ml Vial SLOW IVP 20 mg Q12HR LEXA Administration Sodium Chloride 1,000 mls @ 65 mls/hr 06/16/20 12:45 06/17/20 11:26 Normal Saline 0.9% IV 1,000 mls .[id number] LEXA Administration Levetiracetam 1,000 mg/ Device 100 mls @ 200 mls/hr 06/17/20 09:00 06/17/20 09:53 IVPB 100 mls BID LEXA Administration - Exam General Appearance: awake alert Eye: PERRL ENT: normocephalic atraumatic Neck: supple Respiratory: CTAB Cardiovascular: RRR Gastrointestinal: soft Extremities: no cyanosis Skin: normal turgor Neurological: no new deficit Musculoskeletal: normal tone, no muscle wasting PSYCH: somnolent Results - Labs Result Diagrams: 06/17/20 05:28 06/17/20 05:28 Lab results: WBC 9.8 thou/uL (4.8-10.8) 06/17/20 05:28 Hgb 15.3 g/dL (14.0-18.0) 06/17/20 05:28 Hct 45.5 % (42.0-52.0) 06/17/20 05:28 MCV 97.0 fL (78.0-98.0) 06/17/20 05:28 Plt Count 167 thou/uL (130-400) 06/17/20 05:28 Neutrophils % 69.4 % (42.0-75.0) 06/17/20 05:28 Sodium 138 mmol/L (136-145) 06/17/20 05:28 Potassium 3.8 mmol/L (3.5-5.1) 06/17/20 05:28 Chloride 107 mmol/L (98-107) 06/17/20 05:28 Carbon Dioxide 23 mmol/L (22-29) 06/17/20 05:28 BUN 16 mg/dL (8.4-25.7) 06/17/20 05:28 Creatinine 1.30 mg/dL (0.7-1.3) 06/17/20 05:28 Glucose 76 mg/dL (70-105) 06/17/20 05:28 Calcium 8.7 mg/dL (7.8-10.44) 06/17/20 05:28 Total Bilirubin 0.4 mg/dL (0.2-1.2) 06/16/20 09:22 AST 13 U/L (5-34) 06/16/20 09:22 ALT 16 U/L (8-55) 06/16/20 09:22 Alkaline Phosphatase 86 U/L (40-110) 06/16/20 09:22 CK-MB (CK-2) 4.0 ng/mL (0-6.6) 06/16/20 15:28 Troponin I 0.037 ng/mL (< 0.028) H 06/16/20 15:28 Serum Total Protein 7.7 g/dL (6.0-8.3) 06/16/20 09:22 Albumin 4.2 g/dL (3.5-5.0) 06/16/20 09:22 Urine Ketones Negative mg/dL (Negative) 06/16/20 11:20 Urine Blood Negative (Negative) 06/16/20 11:20 Urine Nitrite Negative (Negative) 06/16/20 11:20 Ur Leukocyte Esterase Negative (Negative) 06/16/20 11:20 - Radiology Interpretation MRI - head Additional Comment: MRI of the brain is consistent with new acute infarction in the right periventricular white matter. There is evidence of extensive encephalomalacia from the prior stroke in the left middle cerebral artery distribution. PN A/P (1) Acute CVA (cerebrovascular accident) Code(s): I63.9 - CEREBRAL INFARCTION, UNSPECIFIED Status: Acute (2) Breakthrough seizure Code(s): G40.919 - EPILEPSY, UNSP, INTRACTABLE, WITHOUT STATUS EPILEPTICUS Status: Acute (3) History of mixed drug abuse Code(s): F19.11 - OTHER PSYCHOACTIVE SUBSTANCE ABUSE, IN REMISSION Status: Acute (4) QUANG (acute kidney injury) Code(s): N17.9 - ACUTE KIDNEY FAILURE, UNSPECIFIED Status: Chronic (5) Anxiety and depression Code(s): F41.9 - ANXIETY DISORDER, UNSPECIFIED; F32.9 - MAJOR DEPRESSIVE DISORDER, SINGLE EPISODE, UNSPECIFIED Status: Chronic (6) CAD (coronary artery disease) Code(s): I25.10 - ATHSCL HEART DISEASE OF [place] CORONARY ARTERY W/O ANG PCTRS Status: Chronic (7) History of CVA with residual deficit Code(s): I69.30 - UNSPECIFIED SEQUELAE OF CEREBRAL INFARCTION Status: Chronic (8) Hypertension Code(s): I10 - ESSENTIAL (PRIMARY) HYPERTENSION Status: Chronic (9) Seizure disorder Code(s): G40.909 - EPILEPSY, UNSP, NOT INTRACTABLE, WITHOUT STATUS EPILEPTICUS Status: Chronic - Plan Daily Plan: plan discussed w/ family, PT/OT, speech therapy Mr. Mckeon is a 59-year-old male with medical history significant for hypertension, hyperlipidemia, polysubstance abuse, prior stroke with residual right-sided deficits, and seizure disorder presented with breakthrough seizures s/p fall. He was loaded with 3 g of Keppra in the emergency room and started on a maintenance dose of 1 g IV every 12 hours. EEG reviewed which was negative for seizure activity. Continue Keppra 1 g IV every 12 hours. Switch to p.o. once patient is cleared by speech. Ativan 2 mg IV for seizure greater than 2 minutes. Observe seizure precautions. MRI of the brain consistent with acute infarction in the right periventricular white matter. Need 2D echo, telemetry and carotid Dopplers as part of stroke work-up. Continue aspirin and high intensity statin for secondary stroke prevention. Ativan 2 mg IV for seizure greater than 2 minutes. Neurochecks every 4 hours. Observe seizure precautions. N.p.o. till cleared by speech. PT/OT/speech. Permissive control of blood pressure at this time. Strict control of blood glucose Acute kidney injurynephrology is on board Continue medical management per primary team. Plan discussed in detail with the patient, patient's sister and with the nursing staff.
--- NOTE | 2020-06-17 13:55 | ULT ---
BILATERAL CAROTID DUPLEX ULTRASOUND: 06/17/20 HISTORY: CVA. Real time color Doppler evaluation of the right and left carotid system was performed. This shows priya e intimal thickening bilaterally. On the right side, peak systolic velocity of the common carotid were 70 cm/s. Internal carotid veloci ties 38 and external carotid velocities 42 cm/s. Left side showed common carotid velocity of 63 cm/s and internal 41.5 and external 38.8 cm/s. Vertebral flow is antegrade bilaterally. IMPRESSION: No evidence of hemodynamically significant stenosis of either internal carotid artery. POS: CARRILLO
--- NOTE | 2020-06-17 13:56 | PDOC.EEG ---
Neurology EEG Report - Report Report: This EEG was performed using 24 channel [employer] video digital EEG machine with 24 disc electrodes. This was an extended 2 hours 4 minutes of EEG recording. Digital analysis of the EEG was done for [place] and seizure detection which revealed no abnormalities. Background: The posterior background rhythm is not observed Photic stimulation: No response seen with photic stimulation. Hyperventilation: Not performed. Sleep: No stage change observed EEG diagnosis: Intermittent irregular theta activity seen throughout the recording . Absence of posterior background rhythm Clinical interpretation: This EEG is consistent with moderate generalized nonspecific cerebral dysfunct ion.
[2020-06-17 15:24] LABS: SARS-CoV-2 MS2 Positive; SARS-CoV-2 N Gene Negative; SARS-CoV-2 S Gene Negative; SARS-CoV-2 by NAA Not Detected (NotDetected); SARS-CoV-2 orf1ab Negative
[2020-06-17] MEDS: Carvedilol 3.125 MG TAB PO SCH (20:10)
[2020-06-17] MEDS: Atorvastatin Calcium 40 MG TAB PO SCH (20:10)
[2020-06-17] MEDS ORDERED: Atorvastatin Calcium 10 MG TAB PO SCH ×2 (21:00)
[2020-06-18 04:44] LABS: Hemoglobin A1c 5.2 % (4.0-6.0)
[2020-06-18 05:01] LABS: Cardiac Risk 3.1 (Less than 4.5)
[2020-06-18] MEDS: Sodium Chloride 0.9% 1,000 ML IV SCH ×2 (07:33→15:54)
[2020-06-18] MEDS ORDERED: Amlodipine 10 MG TAB PO SCH (09:00)
[2020-06-18] MEDS ORDERED: Lisinopril 10 MG TAB PO SCH (09:00)
[2020-06-18] MEDS: levETIRAcetam in NS 1,000 MG in Premix Bag 1 BAG IVPB SCH (10:47)
[2020-06-18] MEDS: Aspirin 300 MG Suppository PR SCH (10:48)
[2020-06-18] MEDS: Famotidine/PF 20 mg/2ml Vial SLOW IVP SCH ×2 (10:48→21:39)
[2020-06-18] MEDS: Aspirin 81 mg Enteric Coated Tablet PO SCH (10:49)
[2020-06-18] MEDS: Carvedilol 3.125 MG TAB PO SCH (10:49)
--- NOTE | 2020-06-18 12:13 | PDOC.HOSPP ---
- Subjective Encounter Date: 06/18/20 Encounter Time: 09:10 Subjective: Patient being helped by physical therapist. He is alert oriented and following commands. He looks quite fatigued. - Objective Vital Signs & Weight: Vital Signs (12 hours) Temp Pulse Resp BP Pulse Ox 06/18/20 11:26 98.1 F 76 16 143/79 H 93 L 06/18/20 11:08 98.2 F 16 132/91 H 97 06/18/20 10:48 64 06/18/20 08:00 98.0 F 64 18 122/64 97 06/18/20 04:00 97.8 F 71 18 130/67 93 L Weight Admit Weight 235 lb Weight 235 lb I&O: 06/17/20 06/18/20 06/19/20 06:59 06:59 06:59 Intake Total 701 700 Balance 701 700 Result Diagrams: 06/17/20 05:28 06/17/20 05:28 Hospitalist ROS - Medication Medications: Active Medications Generic Name Dose Route Start Last Admin Trade Name Raviq PRN Reason Stop Dose Admin Amlodipine Besylate 10 mg 06/18/20 09:00 06/18/20 10:48 Amlodipine 10 Mg Tab PO Not Given DAILY LEXA Aspirin 81 mg 06/18/20 09:00 06/18/20 10:49 Aspirin 81 Mg Enteric Coated Tablet PO Not Given DAILY LEXA Aspirin 300 mg 06/18/20 09:00 06/18/20 10:48 Aspirin 300 Mg Suppository [place] 300 mg DAILY LEXA Administration Atorvastatin Calcium 40 mg 06/17/20 21:00 06/17/20 20:10 Atorvastatin Calcium 40 Mg Tab PO Not Given HS LEXA Atorvastatin Calcium 10 mg 06/17/20 21:00 06/17/20 20:10 Atorvastatin Calcium 10 Mg Tab PO Not Given HS LEXA Carvedilol 3.125 mg 06/17/20 21:00 06/18/20 10:49 Carvedilol 3.125 Mg Tab PO Not Given BID LEXA Famotidine 20 mg 06/16/20 21:00 06/18/20 10:48 Famotidine/Pf 20 Mg/2ml Vial SLOW IVP 20 mg Q12HR LEXA Administration Sodium Chloride 1,000 mls @ 65 mls/hr 06/16/20 12:45 06/18/20 07:33 Normal Saline 0.9% IV 1,000 mls .[id number] LEXA Administration Levetiracetam 1,000 mg/ Device 100 mls @ 200 mls/hr 06/17/20 09:00 06/18/20 10:47 IVPB 100 mls BID LEXA Administration Lisinopril 10 mg 06/18/20 09:00 06/18/20 10:49 Lisinopril 10 Mg Tab PO Not Given DAILY LEXA Sertraline HCl 50 mg 06/18/20 09:00 06/18/20 10:49 Sertraline Hcl 25 Mg Tab PO Not Given DAILY LEXA - Exam General Appearance: NAD, awake alert General - other findings: Fatigued Eye: PERRL ENT: normocephalic atraumatic Neck: supple Heart: RRR Respiratory: CTAB Gastrointestinal: soft, normal bowel sounds Neurological: no focal deficits Psychiatric: oriented to person Hosp A/P - Plan (1) Breakthrough seizure (2) Seizure disorder Code(s): G40.909 - EPILEPSY, UNSP, NOT INTRACTABLE, WITHOUT STATUS EPILEPTICUS Status: Chronic Code(s): G40.919 - EPILEPSY, UNSP, INTRACTABLE, WITHOUT STATUS EPILEPTICUS Status: Acute Assessment and Plan: ?associated with drug abuse, known history of IVDU. UDS shows amphetamine and meth positive. UA is negative for any sign of infection. . Neuro checks. Seizure precautions. CVA new diagnosis with old pre-existing CVA with residual deficits on the right side. -MRI of the brain shows evidence of new lacunar infarct in the right periventricular white matter. Extensive encephalomalacia in the cerebral hemisphere -He is on aspirin as well as statin. Also starting him on Coreg and Norvasc as part of blood pressure medication regimen at home. TSH in the normal range we will get A1c as well as lipid panel in the context of the new diagnosis of a stroke. Hyperlipidemia his LDL is at 59. He is on lipitor at 40 mg p.o. nightly. (4) CAD (coronary artery disease) Code(s): I25.10 - ATHSCL HEART DISEASE OF [place] CORONARY ARTERY W/O ANG PCTRS Status: Chronic Assessment and Plan: resume home medications once verified. Trop elevated. no chest pain. Continue to trend troponins Cardiac monitoring. -Continue with aspirin statin as well as Coreg (5) History of mixed drug abuse Code(s): F19.11 - OTHER PSYCHOACTIVE SUBSTANCE ABUSE, IN REMISSION Status: Acute Assessment and Plan: Suspected relapse due to recent of his dog. UDS pending. (6) Hypertension -Norvasc and lisinopril. (7) Acute on chronic renal insufficiency -Appears his Kidney function at baseline creatinine is around 1.3. (8) Anxiety and depression Code(s): F41.9 - ANXIETY DISORDER, UNSPECIFIED; F32.9 - MAJOR DEPRESSIVE DISORDER, SINGLE EPISODE, UNSPECIFIED Status: Chronic Assessment and Plan: resume home medications once verified. DVT Prophylaxis with mechanical SCDs. GI Prophylaxis with Famotidine. CODE STATUS FULL Surrogate decision maker is his sister Yumiko Milligan. Echo EF of 55% of the diastolic dysfunction. Mild mitral regurgitation. Electroencephalogram consistent with a moderate generalized nonspecific cerebral dysfunction. Disposition to rehab.
[2020-06-18] MEDS ORDERED: hydrALAZINE 20 MG/ML VIAL SLOW IVP PRN (15:18)
[2020-06-18] MEDS ORDERED: Metoprolol Tartrate 5 MG/5 ML VIAL IVP PRN (15:18)
[2020-06-18] MEDS ORDERED: Carvedilol 6.25 MG TAB PO SCH (15:30)
[2020-06-18] MEDS: levETIRAcetam 500 MG TAB PO SCH (21:37)
[2020-06-18] MEDS: Carvedilol 6.25 MG TAB PO SCH (21:37)
[2020-06-18] MEDS: Atorvastatin Calcium 40 MG TAB PO SCH (21:37)
[2020-06-19] MEDS: Sodium Chloride 0.9% 1,000 ML IV SCH (00:15)
[2020-06-19] MEDS ORDERED: Lisinopril 20 MG TAB PO SCH (09:00)
[2020-06-19] MEDS: levETIRAcetam 500 MG TAB PO SCH (09:50)
[2020-06-19] MEDS: Aspirin 300 MG Suppository PR SCH (09:50)
[2020-06-19] MEDS: Aspirin 81 mg Enteric Coated Tablet PO SCH (09:50)
[2020-06-19] MEDS: Carvedilol 6.25 MG TAB PO SCH (09:51)
[2020-06-19] MEDS: Famotidine/PF 20 mg/2ml Vial SLOW IVP SCH (09:53)
--- NOTE | 2020-06-19 11:08 | PDOC.HOSPP ---
- Subjective Encounter Date: 06/19/20 Encounter Time: 10:10 Subjective: Patient is resting. He has no acute distress. severe dysarthria. He is alert oriented. Afebrile and normotensive. - Objective Vital Signs & Weight: Vital Signs (12 hours) Temp Pulse Resp BP BP Pulse Ox 06/19/20 09:51 123/62 06/19/20 09:50 123/62 06/19/20 07:44 98.6 F 75 15 135/86 97 06/19/20 03:18 97.6 F 65 15 136/88 95 06/18/20 23:46 98.7 F 67 15 130/76 94 L Weight Admit Weight 235 lb Weight 235 lb I&O: 06/18/20 06/19/20 06/20/20 06:59 06:59 06:59 Intake Total 700 1939 Output Total 100 Balance 700 1839 Result Diagrams: 06/17/20 05:28 06/17/20 05:28 Hospitalist ROS - Medication Medications: Active Medications Generic Name Dose Route Start Last Admin Trade Name Raviq PRN Reason Stop Dose Admin Aspirin 81 mg 06/18/20 09:00 06/19/20 09:50 Aspirin 81 Mg Enteric Coated Tablet PO 81 mg DAILY LEXA Administration Aspirin 300 mg 06/18/20 09:00 06/19/20 09:50 Aspirin 300 Mg Suppository [place] Not Given DAILY LEXA Atorvastatin Calcium 40 mg 06/17/20 21:00 06/18/20 21:37 Atorvastatin Calcium 40 Mg Tab PO 40 mg HS LEXA Administration Carvedilol 6.25 mg 06/18/20 21:00 06/19/20 09:51 Carvedilol 6.25 Mg Tab PO 6.25 mg BID LEXA Administration Famotidine 20 mg 06/16/20 21:00 06/19/20 09:53 Famotidine/Pf 20 Mg/2ml Vial SLOW IVP 20 mg Q12HR LEXA Administration Sodium Chloride 1,000 mls @ 65 mls/hr 06/16/20 12:45 06/19/20 00:15 Normal Saline 0.9% IV 1,000 mls .[id number] LEXA Administration Levetiracetam 1,000 mg 06/18/20 21:00 06/19/20 09:50 Levetiracetam 500 Mg Tab PO 1,000 mg BID LEXA Administration Lisinopril 40 mg 06/19/20 09:00 06/19/20 09:50 Lisinopril 20 Mg Tab PO 40 mg DAILY LEXA Administration Sertraline HCl 50 mg 06/18/20 09:00 06/19/20 10:03 Sertraline Hcl 25 Mg Tab PO 50 mg DAILY LEXA Administration - Exam General Appearance: NAD, awake alert General - other findings: Significant dysarthria Eye: PERRL, anicteric sclera ENT: normocephalic atraumatic Neck: supple Heart: RRR Respiratory: CTAB, normal chest expansion Gastrointestinal: soft, normal bowel sounds Neurological: no new deficit Psychiatric: A&O x 3 Hosp A/P - Plan (1) Breakthrough seizure (2) Seizure disorder Code(s): G40.909 - EPILEPSY, UNSP, NOT INTRACTABLE, WITHOUT STATUS EPILEPTICUS Status: Chronic Code(s): G40.919 - EPILEPSY, UNSP, INTRACTABLE, WITHOUT STATUS EPILEPTICUS Status: Acute Assessment and Plan: ?associated with drug abuse, known history of IVDU. UDS shows amphetamine and meth positive. UA is negative for any sign of infection. . Neuro checks. Seizure precautions. CVA new diagnosis with old pre-existing CVA with residual deficits on the right side. Significant dysarthria -MRI of the brain shows evidence of new lacunar infarct in the right periventricular white matter. Extensive encephalomalacia in the cerebral hemisphere -He is on aspirin as well as statin. Also starting him on Coreg and Norvasc as part of blood pressure medication regimen at home. TSH in the normal range we will get A1c as well as lipid panel in the context of the new diagnosis of a stroke. Hyperlipidemia his LDL is at 59. He is on lipitor at 40 mg p.o. nightly. (4) CAD (coronary artery disease) Code(s): I25.10 - ATHSCL HEART DISEASE OF [place] CORONARY ARTERY W/O ANG PCTRS Status: Chronic Assessment and Plan: resume home medications once verified. Trop elevated. no chest pain. Continue to trend troponins Cardiac monitoring. -Continue with aspirin statin as well as Coreg (5) History of mixed drug abuse Code(s): F19.11 - OTHER PSYCHOACTIVE SUBSTANCE ABUSE, IN REMISSION Status: Acute Assessment and Plan: Suspected relapse due to recent of his dog. UDS pending. (6) Hypertension -Norvasc and lisinopril. (7) Acute on chronic renal insufficiency -Appears his Kidney function at baseline creatinine is around 1.3. (8) Anxiety and depression Code(s): F41.9 - ANXIETY DISORDER, UNSPECIFIED; F32.9 - MAJOR DEPRESSIVE DISORDER, SINGLE EPISODE, UNSPECIFIED Status: Chronic Assessment and Plan: resume home medications once verified. Echo EF of 55% of the diastolic dysfunction. Mild mitral regurgitation. Electroencephalogram consistent with a moderate generalized nonspecific cerebral dysfunction. DVT Prophylaxis with mechanical SCDs. GI Prophylaxis with Famotidine. CODE STATUS FULL Surrogate decision maker is his sister Yumiko Milligan. Disposition to rehab.
[2020-06-19 12:04] VITALS: BP 142/89; TEMP 98.3
--- NOTE | 2020-06-19 14:59 | PDOC.DS.DS ---
Provider - Provider Date of Admission: 06/16/20 11:04 Admitting Provider: Cathie Hunter MD Primary Care Physician: Martin Sim MD Course - Hospital Course Hospital Course: 59-year-old male with history of seizure admitted with breakthrough seizure. (1) Breakthrough seizure (2) Seizure disorder ?associated with drug abuse, known history of IVDU. UDS shows amphetamine and meth positive. UA is negative for any sign of infection. 3. CVA new diagnosis with old pre-existing CVA with residual deficits on the right side. Significant dysarthria -MRI of the brain shows evidence of new lacunar infarct in the right periventricular white matter. Extensive encephalomalacia in the cerebral hemisphere -He is on aspirin as well as statin, Coreg and acei. TSH in the normal range Hyperlipidemia As his LDL is only t 59 will cw home zocor. (4) CAD (coronary artery disease) Code(s): I25.10 - ATHSCL HEART DISEASE OF [place] CORONARY ARTERY W/O ANG PCTRS Status: Chronic Assessment and Plan: resume home medications once verified. Trop elevated. Metabolic mismatch - on aspirin statin, ACEI as well as Coreg Echo EF of 55% of the diastolic dysfunction. Mild mitral regurgitation. Electroencephalogram consistent with a moderate generalized nonspecific cerebral dysfunction. Surrogate decision maker is his sister Yumiko Milligan. I talked to the sister today. Patient lives with his mother. Sister will be visiting frequently. She is aware of his medical conditions. Since patient is a Medicaid he may not be able to go to the inpatient rehab. Sister is comfortable to take him home today. I will request the case management coordinator to arrange for home health physical therapy as well as speech therapy tomorrow. - Labs Lab Results: 06/17/20 05:28 06/17/20 05:28 - Physical Exam Vitals: Vital Signs (12 hours) Temp Pulse Resp BP BP Pulse Ox 06/19/20 11:00 98.3 F 66 17 142/89 H 98 06/19/20 09:51 123/62 06/19/20 09:50 123/62 06/19/20 07:44 98.6 F 75 15 135/86 97 06/19/20 03:18 97.6 F 65 15 136/88 95 Weight Admit Weight 235 lb Weight 235 lb Physical Exam: The patient was seen and examined on the day of discharge. Plan - Discharge Medications Prescriptions: levETIRAcetam [Keppra] 1,000 mg PO BID 30 Days #60 tablet Home Medications: Medication Instructions Recorded Confirmed Type Lisinopril [Zestril] 40 mg PO DAILY 03/31/18 06/17/20 History Sertraline HCl 50 mg PO DAILY 03/31/18 06/17/20 History Aspirin [Ecotrin Low Strength] 81 mg PO DAILY 06/17/20 06/17/20 History Simvastatin 20 mg PO HS 06/17/20 06/17/20 History Carvedilol 1 tab PO BID 06/18/20 06/18/20 History levETIRAcetam [Keppra] 1,000 mg PO BID 30 Days #60 tablet 06/19/20 Rx Allergies: No Known Allergies Allergy (Verified 11/02/19 17:01) - Discharge Instructions Discharge Instructions:: PCP follow-up in 1 week. Activity:: Activity as Tolerated Nourishment:: Heart Healthy Diet Therapies:: Physical Therapy, Speech Therapy - Follow up Plan Referrals: Martin Sim MD [Primary Care Provider] - Disposition: HOME HEALTH Quality - Care Measures CORE MEASURES:: Stroke/TIA - Stroke/TIA Did you prescribe antithrombotic therapy?: Yes Did you prescribe anticoagulant for A Fib/Flutter?: No Specify reason for no DC anticoagulant: Treatment not indicated Did you prescribe a statin medication?: Yes
--- NOTE | 2020-06-22 03:34 | PQF ---
CLINICAL DOCUMENTATION CLARIFICATION FORM: Dear : Camacho Lawrence Date / Time: 06/22/2020 0334 Please exercise your independent, professional judgment in responding to the clarification form. Clinical indicators are provided on the bottom of this form for your review Please check appropriate box(es) to clarify if the following diagnosis has been ruled in our ruled out: NSTEMI [ ] Ruled in diagnosis [ ] Continue to treat [ ] Resolved [ ] Ruled out diagnosis [ ] Improving [ ] Cannot rule out diagnosis [ ] Other diagnosis [ ] Unable to determine Physician Signature: Date/Time: For continuity of documentation, please document condition throughout progress notes and discharge summary. Thank You. To be completed by CDI/Coding staff for physician review: Present Clinical Indicators - Signs / Symptoms / Labs Results and Location in Medical Record [X] Troponin I 0.036; 0.043; 0.037 Laboratory 06/16 [X] BP 144/88, Pulse 71, Resp 14, Temp 98.2 Vital signs 06/16 [X] EKG Impression: Premature atrial complex, First degree AV block, Q waves in AVF, non-specific EKG ED notes 06/16 [X] Admitted for ECG changes and slightly elevated troponin ED notes 06/16 [X] Seziure, Dehydration, NSTEMI ED notes 06/16 Present Risk Factors Results and Location in Medical Record [X] HTN H&P p1 06/16 Flowers PA-C [X] Hx of prostate cancer H&P 06/16 Flowers PA-C [X] Hx of CVA H&P 06/16 Flowers PA-C [X] Hx of ME H&P p1 06/16 Flowers PA-C [X] Smoker H&P 06/16 Flowers PA-C [X] Drug abuse H&P 06/16 Flowers PA-C [X] HLD H&P 06/16 Flowers PA-C [X] CKD PN 06/17 Present Treatments Results and Location in Medical Record [X] IVF NS 1L OCT 20 [X] Aspirin Chewable 81 mg Oral OCT 20 [X] Coreg 3.125 mg oral OCT 20 [X] Lipitor 40 mg oral OCT 20 [X] Series of Troponin Laboratory 06/16 [X] EKG ED notes p106/16 CDS/Plant Engineering Manager Signature: Eleni Dennison Phone #: ext [phone] Date/Time: 06/22/2020 0334 This is a permanent part of the Medical Record [facility]
== END 2020-06-19 15:22 | disposition home health service (06) | DRG 917 ==
LOC: ERS 08:45 → ERHOLD 11:04 → 2SE 17:44
PROVIDERS: ADMIT Internal Medicine; ATTEND Internal Medicine
DX: T43.621A Poisoning by amphetamines, accidental (unintentional), initial encounter (principal); I63.81 Other cerebral infarction due to occlusion or stenosis of small artery; I69.351 Hemiplegia and hemiparesis following cerebral infarction affecting right dominant side; N17.9 Acute kidney failure, unspecified; Z20.828 Contact with and (suspected) exposure to other viral communicable diseases; G40.909 Epilepsy, unspecified, not intractable, without status epilepticus; R29.712 NIHSS score 12; R47.1 Dysarthria and anarthria; E78.5 Hyperlipidemia, unspecified; I25.10 Atherosclerotic heart disease of native coronary artery without angina pectoris; I34.0 Nonrheumatic mitral (valve) insufficiency; F32.9 Major depressive disorder, single episode, unspecified; F41.9 Anxiety disorder, unspecified; F17.210 Nicotine dependence, cigarettes, uncomplicated; N18.9 Chronic kidney disease, unspecified; I12.9 Hypertensive chronic kidney disease with stage 1 through stage 4 chronic kidney disease, or unspecified chronic kidney disease; D63.1 Anemia in chronic kidney disease; F15.10 Other stimulant abuse, uncomplicated; Z28.21 Immunization not carried out because of patient refusal; Z85.46 Personal history of malignant neoplasm of prostate; I25.2 Old myocardial infarction; Z79.899 Other long term (current) drug therapy; Z79.82 Long term (current) use of aspirin; I69.320 Aphasia following cerebral infarction
CPT/HCPCS: 36415; 36416; 70450; 70551; 71045; 72170; 76770; 80048; 80053; 80061; 80177; 80306; 81003; 81015; 82553; 83036; 84146; 84443; 84484; 85025; 87635; 93005; 93306; 93880; 94760; 95712; 95819; 95957; J1953; J2060; S0028; U0003

== ENCOUNTER 2020-12-13 02:01 | Inpatient (IN) | payer OTHER ==
[2020-12-13] MEDS ORDERED: levETIRAcetam in NS 100 ML ONE ×2 (02:23→02:59)
[2020-12-13 03:46] LABS: #Eosinphils 0.1 thou/uL (0.0-0.7); #Monocytes 0.7 thou/uL (0.11-0.59); #Neutrophils 11.8 thou/uL (1.40-6.50); %Basophils 0.1 % (0.0-1.0); %Eosinophils 0.4 % (0.0-10.0); %Lymphocytes 7.2 % (21.0-51.0); %Monocytes 4.9 % (0.0-10.0); %Neutrophils 87.3 % (42.0-75.0); Hemoglobin 15.1 g/dL (14.0-18.0); Mean Corpuscular HGB CONC 34.6 g/dL (32.0-36.0); Mean Corpuscular Hemoglobin 32.9 pg (27.0-31.0); Platelet Count 180 thou/uL (130-400); RBC Distribution Width 11.9 % (11.5-14.5); Red Blood Cell (RBC) Count 4.59 mill/uL (4.70-6.10); White Blood Cell (WBC) Count 13.5 thou/uL (4.8-10.8)
[2020-12-13 04:08] LABS: ALT (SGPT) 14 U/L (8-55); AST (SGOT) 13 U/L (5-34); Albumin 3.5 g/dL (3.5-5.0); Alkaline Phosphatase 94 U/L (40-110); Anion Gap 11 mmol/L (10-20); BUN (Urea Nitrogen) 20 mg/dL (8.4-25.7); Bilirubin, Total 0.4 mg/dL (0.2-1.2); Calc. Creatinine Clearance 0 mL/min (70-130); Calcium 8.4 mg/dL (7.8-10.44); Carbon Dioxide 25 mmol/L (22-29); Chloride 106 mmol/L (98-107); Globulin 2.9 g/dL (2.4-3.5); Glucose 106 mg/dL (70-105); Potassium 4.3 mmol/L (3.5-5.1); Protein, Total 6.4 g/dL (6.0-8.3); Sodium 138 mmol/L (136-145)
[2020-12-13] MEDS ORDERED: Acetaminophen 325 MG TAB PO PRN (15:11)
[2020-12-13] MEDS ORDERED: Ondansetron PF 4 MG/2 ML Vial IVP PRN (15:11)
[2020-12-13] MEDS ORDERED: Bisacodyl 10 MG SUPP PR PRN (15:11)
[2020-12-13] MEDS ORDERED: Senokot S 8.6-50 MG TAB PO PRN (15:11)
[2020-12-13 18:47] VITALS: BMI 30.9
[2020-12-14 00:24] LABS: Bilirubin Negative (Negative); Blood, Urine Negative (Negative); Clarity Clear (Clear); Glucose, Urine (Dipstick) Normal (Negative); Ketone, Urine Negative (Negative); Leukocyte Negative Leu/uL (Negative); Nitrite Negative (Negative); Protein, Urine (Dipstick) Negative (Neg-Trace); Specific Gravity, Urine 1.021 (1.002-1.036); Urobilinogen Normal mg/dL (Less than 2); pH, Urine 5.5 (5.0-9.0)
[2020-12-14 00:33] LABS: Amphetamine Detected (NotDetected); Medtox Reader # READER 4; Methamphetamine Detected (NotDetected)
[2020-12-14 00:34] LABS: Barbiturates Screen Not Detected (NotDetected); Benzodiazepine Screen Detected (NotDetected); Cocaine Metabolite Screen Not Detected (NotDetected); Medtox Control Line Valid? VALID (VALID); Methadone Not Detected (NotDetected); Opiate Screen Not Detected (NotDetected); Oxycodone Screen Not Detected (NotDetected); Phencyclidine (PCP) Not Detected (NotDetected); THC/Cannabinoid Screen Not Detected (NotDetected); Tricyclic Screen Not Detected (NotDetected)
[2020-12-14 04:46] LABS: #Eosinphils 0.2 thou/uL (0.0-0.7); #Lymphocytes 1.7 thou/uL (1.20-3.40); #Monocytes 0.6 thou/uL (0.11-0.59); #Neutrophils 4.9 thou/uL (1.40-6.50); %Basophils 0.2 % (0.0-1.0); %Lymphocytes 23.3 % (21.0-51.0); %Monocytes 8.7 % (0.0-10.0); %Neutrophils 65.8 % (42.0-75.0); Hemoglobin 14.9 g/dL (14.0-18.0); Mean Corpuscular HGB CONC 33.6 g/dL (32.0-36.0); Mean Corpuscular Hemoglobin 31.9 pg (27.0-31.0); Mean Platelet Volume 8.9 fL (7.4-10.4); Platelet Count 165 thou/uL (130-400); RBC Distribution Width 11.8 % (11.5-14.5); Red Blood Cell (RBC) Count 4.66 mill/uL (4.70-6.10); White Blood Cell (WBC) Count 7.4 thou/uL (4.8-10.8)
[2020-12-14 05:06] LABS: Anion Gap 11 mmol/L (10-20); BUN (Urea Nitrogen) 16 mg/dL (8.4-25.7); Calc. Creatinine Clearance 103 mL/min (70-130); Carbon Dioxide 23 mmol/L (22-29); Chloride 106 mmol/L (98-107); Glucose 82 mg/dL (70-105); Potassium 3.6 mmol/L (3.5-5.1); Sodium 136 mmol/L (136-145)
[2020-12-14 05:43] LABS: SARS-CoV-2 PCR by NAA Not Detected (NotDetected)
[2020-12-15] MEDS: levETIRAcetam in NS 500 MG in Premix Bag 1 BAG IVPB SCH ×2 (08:54→20:00)
[2020-12-15] MEDS ORDERED: Metoprolol Tartrate 5 MG/5 ML VIAL IVP PRN (12:25)
[2020-12-15] MEDS: Lorazepam 2 MG/ML VIAL SLOW IVP SCH ×2 (13:25→20:00)
[2020-12-16] MEDS: Lorazepam 2 MG/ML VIAL SLOW IVP SCH (05:01)
[2020-12-16] MEDS: levETIRAcetam in NS 500 MG in Premix Bag 1 BAG IVPB SCH ×2 (09:35→21:48)
[2020-12-16] MEDS ORDERED: Lorazepam 2 MG/ML VIAL SLOW IVP PRN (17:14)
[2020-12-16] MEDS ORDERED: Atorvastatin Calcium 10 MG TAB PO SCH (21:00)
[2020-12-17] MEDS ORDERED: levETIRAcetam 500 MG TAB PO SCH (08:00)
[2020-12-17] MEDS ORDERED: Carvedilol 6.25 MG TAB PO SCH (08:00)
[2020-12-17] MEDS ORDERED: Lisinopril 20 MG TAB PO SCH (09:00)
[2020-12-17] MEDS ORDERED: Aspirin 81 mg Enteric Coated Tablet PO SCH (09:00)
[2020-12-17] MEDS: levETIRAcetam in NS 500 MG in Premix Bag 1 BAG IVPB SCH (09:02)
[2020-12-17 15:52] VITALS: BP 110/76; TEMP 98.1
== END 2020-12-17 16:39 | disposition home or self-care (01) | DRG 92 ==
LOC: ERS 02:01 → 2SE 14:40 → OBSVTOIN 12-15 14:35
PROVIDERS: ADMIT Internal Medicine; ATTEND Internal Medicine
DX: G92 Toxic encephalopathy (principal); N17.9 Acute kidney failure, unspecified; I69.351 Hemiplegia and hemiparesis following cerebral infarction affecting right dominant side; T42.6X5A Adverse effect of other antiepileptic and sedative-hypnotic drugs, initial encounter; Z20.822 Contact with and (suspected) exposure to COVID-19; T42.75XA Adverse effect of unspecified antiepileptic and sedative-hypnotic drugs, initial encounter; G40.909 Epilepsy, unspecified, not intractable, without status epilepticus; I25.10 Atherosclerotic heart disease of native coronary artery without angina pectoris; I12.9 Hypertensive chronic kidney disease with stage 1 through stage 4 chronic kidney disease, or unspecified chronic kidney disease; D72.829 Elevated white blood cell count, unspecified; F17.210 Nicotine dependence, cigarettes, uncomplicated; F15.10 Other stimulant abuse, uncomplicated; F13.10 Sedative, hypnotic or anxiolytic abuse, uncomplicated; N18.9 Chronic kidney disease, unspecified; E78.5 Hyperlipidemia, unspecified; E78.00 Pure hypercholesterolemia, unspecified; F41.9 Anxiety disorder, unspecified; F32.9 Major depressive disorder, single episode, unspecified; Z91.14 Patient's other noncompliance with medication regimen; Z79.82 Long term (current) use of aspirin; Z79.899 Other long term (current) drug therapy; I69.322 Dysarthria following cerebral infarction; Z85.46 Personal history of malignant neoplasm of prostate
CPT/HCPCS: 36415; 70450; 71045; 80048; 80053; 80177; 80306; 81003; 85025; 87635; 95712; 95819; 95957; 96365; 96375; G0378; J1953; J2060; U0003; U0005

== ENCOUNTER 2021-03-25 12:46 | Inpatient (IN) | payer OTHER ==
[2021-03-25 13:56] LABS: #Eosinphils 0.2 thou/uL (0.0-0.7); #Lymphocytes 2.1 thou/uL (1.20-3.40); #Monocytes 1.4 thou/uL (0.11-0.59); #Neutrophils 10.9 thou/uL (1.40-6.50); %Basophils 0.3 % (0.0-1.0); %Eosinophils 1.3 % (0.0-10.0); %Lymphocytes 14.1 % (21.0-51.0); %Monocytes 9.8 % (0.0-10.0); %Neutrophils 74.5 % (42.0-75.0); Hemoglobin 15.5 g/dL (14.0-18.0); Mean Corpuscular HGB CONC 34.9 g/dL (32.0-36.0); Mean Corpuscular Hemoglobin 33.1 pg (27.0-31.0); Mean Corpuscular Volume 94.9 fL (78.0-98.0); Mean Platelet Volume 9.3 fL (7.4-10.4); Platelet Count 209 thou/uL (130-400); RBC Distribution Width 12.2 % (11.5-14.5); Red Blood Cell (RBC) Count 4.69 mill/uL (4.70-6.10); White Blood Cell (WBC) Count 14.7 thou/uL (4.8-10.8)
[2021-03-25] MEDS ORDERED: Cefepime 2 GM VIAL ONE (13:56)
[2021-03-25] MEDS ORDERED: Vancomycin 1 GM/200 ML BAG ONE (13:56)
[2021-03-25 14:16] LABS: ALT (SGPT) 13 U/L (8-55); AST (SGOT) 14 U/L (5-34); Albumin 3.9 g/dL (3.5-5.0); Alkaline Phosphatase 88 U/L (40-110); Anion Gap 9 mmol/L (10-20); BUN (Urea Nitrogen) 20 mg/dL (8.4-25.7); Bilirubin, Total 1.4 mg/dL (0.2-1.2); Calc. Creatinine Clearance 0 mL/min (70-130); Calcium 9.6 mg/dL (7.8-10.44); Carbon Dioxide 27 mmol/L (22-29); Chloride 103 mmol/L (98-107); Globulin 3.4 g/dL (2.4-3.5); Glucose 102 mg/dL (70-105); Potassium 4.1 mmol/L (3.5-5.1); Protein, Total 7.3 g/dL (6.0-8.3); Sodium 135 mmol/L (136-145)
[2021-03-25 15:39] LABS: Amphetamine Detected (NotDetected); Barbiturates Screen Not Detected (NotDetected); Benzodiazepine Screen Not Detected (NotDetected); Bilirubin Negative (Negative); Blood, Urine Negative (Negative); Clarity Clear (Clear); Cocaine Metabolite Screen Not Detected (NotDetected); Glucose, Urine (Dipstick) Normal (Negative); Ketone, Urine Negative (Negative); Leukocyte 75 Leu/uL (Negative); Methadone Not Detected (NotDetected); Methamphetamine Detected (NotDetected); Nitrite Negative (Negative); Opiate Screen Not Detected (NotDetected); Oxycodone Screen Not Detected (NotDetected); Phencyclidine (PCP) Not Detected (NotDetected); Protein, Urine (Dipstick) 20 mg/dL (Neg-Trace); RBC/HPF 0-3 HPF (0-3); Specific Gravity, Urine 1.032 (1.002-1.036); THC/Cannabinoid Screen Not Detected (NotDetected); Tricyclic Screen Not Detected (NotDetected); Urobilinogen 3 mg/dL (Less than 2); pH, Urine 5.5 (5.0-9.0)
[2021-03-25 15:41] LABS: Bacteria/HPF 1+ HPF (None Seen)
[2021-03-25] MEDS ORDERED: Senokot S 8.6-50 MG TAB PO PRN (17:08)
[2021-03-25] MEDS ORDERED: Acetaminophen 325 MG TAB PO PRN (17:08)
[2021-03-25] MEDS ORDERED: HYDROcodone/Acetaminophen 5/325 mg Tablet PO PRN (17:11)
[2021-03-25] MEDS ORDERED: Diazepam 5 MG TAB PO PRN (18:02)
[2021-03-25] MEDS ORDERED: Thiamine HCl 200 MG/2 ML VIAL IM SCH (18:15)
[2021-03-25] MEDS ORDERED: Diazepam 5 MG TAB PO SCH (18:15)
[2021-03-25] MEDS: Sodium Chloride 0.9% 1,000 ML IV SCH (21:30)
[2021-03-25] MEDS: levETIRAcetam 500 MG TAB PO SCH (21:31)
[2021-03-25] MEDS: Famotidine 20 MG TAB PO SCH (21:31)
[2021-03-26 00:25] LABS: SARS-CoV-2 PCR by NAA Not Detected (NotDetected)
[2021-03-26] MEDS ORDERED: Diazepam 5 MG TAB PO PRN (04:00)
[2021-03-26] MEDS: Sodium Chloride 0.9% 1,000 ML IV SCH ×2 (04:31→20:00)
[2021-03-26 06:12] LABS: #Eosinphils 0.2 thou/uL (0.0-0.7); #Monocytes 1.1 thou/uL (0.11-0.59); #Neutrophils 6.9 thou/uL (1.40-6.50); %Eosinophils 1.7 % (0.0-10.0); %Lymphocytes 19.3 % (21.0-51.0); %Monocytes 10.7 % (0.0-10.0); %Neutrophils 68.3 % (42.0-75.0); Mean Corpuscular HGB CONC 32.6 g/dL (32.0-36.0); Mean Corpuscular Hemoglobin 31.3 pg (27.0-31.0); Mean Platelet Volume 9.3 fL (7.4-10.4); Platelet Count 177 thou/uL (130-400); RBC Distribution Width 12.1 % (11.5-14.5); Red Blood Cell (RBC) Count 4.16 mill/uL (4.70-6.10); White Blood Cell (WBC) Count 10.1 thou/uL (4.8-10.8)
[2021-03-26 06:35] LABS: Anion Gap 11 mmol/L (10-20); BUN (Urea Nitrogen) 19 mg/dL (8.4-25.7); Calc. Creatinine Clearance 83 mL/min (70-130); Calcium 8.5 mg/dL (7.8-10.44); Carbon Dioxide 22 mmol/L (22-29); Chloride 105 mmol/L (98-107); Glucose 81 mg/dL (70-105); Potassium 3.6 mmol/L (3.5-5.1); Sodium 134 mmol/L (136-145)
[2021-03-26] MEDS: Multivitamin W/ Minerals 1 TAB PO SCH (09:00)
[2021-03-26] MEDS: Carvedilol 6.25 MG TAB PO SCH ×2 (09:31→16:23)
[2021-03-26] MEDS: Enoxaparin Sodium 40 MG/0.4 ML SYRINGE SC SCH (09:32)
[2021-03-26] MEDS: Famotidine 20 MG TAB PO SCH ×2 (09:32→21:48)
[2021-03-26] MEDS: Thiamine 100 MG TAB PO SCH (09:32)
[2021-03-26] MEDS: levETIRAcetam 500 MG TAB PO SCH ×2 (09:32→21:48)
[2021-03-26] MEDS: Magnesium Oxide 400 MG TAB PO SCH (09:33)
[2021-03-26] MEDS: Folic Acid 1 MG TAB PO SCH (09:33)
[2021-03-26] MEDS ORDERED: Amlodipine 10 MG TAB PO SCH (12:30)
[2021-03-26 13:36] LABS: Vancomycin, Random 4.1 ug/mL (See Comment)
[2021-03-26] MEDS: Cefepime 2 GM in Sodium Chloride 0.9% 100 ML IVPB SCH (14:32)
[2021-03-26] MEDS ORDERED: VANCOMYCIN 1.25 GM/250 ML BAG 1.25 GM in Premix Bag 1 BAG IVPB SCH (15:00)
[2021-03-26] MEDS: VANCOMYCIN 1.75 GM/350 ML BAG 1.75 GM in Premix Bag 1 BAG IVPB SCH (17:54)
[2021-03-26] MEDS ORDERED: Cefepime 2 GM in Sodium Chloride 0.9% 100 ML IVPB SCH (18:00)
[2021-03-26] MEDS: Atorvastatin Calcium 10 MG TAB PO SCH (21:48)
[2021-03-27] MEDS: Sodium Chloride 0.9% 1,000 ML IV SCH ×3 (00:24→23:36)
[2021-03-27] MEDS: HYDROcodone/Acetaminophen 5/325 mg Tablet PO PRN ×2 (00:41→21:19)
[2021-03-27] MEDS: Folic Acid 1 MG TAB PO SCH (09:09)
[2021-03-27] MEDS: Famotidine 20 MG TAB PO SCH ×2 (09:09→21:18)
[2021-03-27] MEDS: Enoxaparin Sodium 40 MG/0.4 ML SYRINGE SC SCH (09:09)
[2021-03-27] MEDS: Magnesium Oxide 400 MG TAB PO SCH (09:10)
[2021-03-27] MEDS: Carvedilol 6.25 MG TAB PO SCH ×2 (09:10→17:26)
[2021-03-27] MEDS: levETIRAcetam 500 MG TAB PO SCH ×2 (09:10→21:18)
[2021-03-27] MEDS: Multivitamin W/ Minerals 1 TAB PO SCH (09:11)
[2021-03-27] MEDS: Thiamine 100 MG TAB PO SCH (09:11)
[2021-03-27] MEDS: Amlodipine 10 MG TAB PO SCH (09:12)
[2021-03-27 09:43] LABS: #Eosinphils 0.2 thou/uL (0.0-0.7); #Lymphocytes 1.8 thou/uL (1.20-3.40); #Neutrophils 6.9 thou/uL (1.40-6.50); %Basophils 0.3 % (0.0-1.0); %Eosinophils 2.4 % (0.0-10.0); %Lymphocytes 17.9 % (21.0-51.0); %Neutrophils 69.5 % (42.0-75.0); Hemoglobin 13.2 g/dL (14.0-18.0); Mean Corpuscular Hemoglobin 33.4 pg (27.0-31.0); Mean Corpuscular Volume 95.3 fL (78.0-98.0); Mean Platelet Volume 9.1 fL (7.4-10.4); Platelet Count 174 thou/uL (130-400); RBC Distribution Width 12.1 % (11.5-14.5); Red Blood Cell (RBC) Count 3.94 mill/uL (4.70-6.10)
[2021-03-27 10:04] LABS: Anion Gap 10 mmol/L (10-20); BUN (Urea Nitrogen) 19 mg/dL (8.4-25.7); Calc. Creatinine Clearance 98 mL/min (70-130); Calcium 8.6 mg/dL (7.8-10.44); Carbon Dioxide 22 mmol/L (22-29); Chloride 109 mmol/L (98-107); Glucose 80 mg/dL (70-105); Potassium 3.8 mmol/L (3.5-5.1); Sodium 137 mmol/L (136-145)
[2021-03-27] MEDS: Cefepime 2 GM in Sodium Chloride 0.9% 100 ML IVPB SCH (16:21)
[2021-03-27] MEDS: VANCOMYCIN 1.75 GM/350 ML BAG 1.75 GM in Premix Bag 1 BAG IVPB SCH (17:26)
[2021-03-27] MEDS: Atorvastatin Calcium 10 MG TAB PO SCH (21:18)
[2021-03-28] MEDS: Sodium Chloride 0.9% 1,000 ML IV SCH ×2 (03:48→16:30)
[2021-03-28] MEDS: Amlodipine 10 MG TAB PO SCH (08:36)
[2021-03-28] MEDS: Famotidine 20 MG TAB PO SCH ×2 (08:36→21:31)
[2021-03-28] MEDS: Magnesium Oxide 400 MG TAB PO SCH (08:36)
[2021-03-28] MEDS: Thiamine 100 MG TAB PO SCH (08:36)
[2021-03-28] MEDS: Multivitamin W/ Minerals 1 TAB PO SCH (08:36)
[2021-03-28] MEDS: levETIRAcetam 500 MG TAB PO SCH ×2 (08:37→21:31)
[2021-03-28] MEDS: Enoxaparin Sodium 40 MG/0.4 ML SYRINGE SC SCH (08:37)
[2021-03-28] MEDS: Folic Acid 1 MG TAB PO SCH (08:37)
[2021-03-28] MEDS: Carvedilol 6.25 MG TAB PO SCH ×2 (08:37→17:18)
[2021-03-28] MEDS ORDERED: Magnevist 469MG/ML 20 ML VIAL ONE (09:43)
[2021-03-28 10:05] LABS: #Eosinphils 0.2 thou/uL (0.0-0.7); #Lymphocytes 1.3 thou/uL (1.20-3.40); #Monocytes 0.6 thou/uL (0.11-0.59); #Neutrophils 5.3 thou/uL (1.40-6.50); %Basophils 0.6 % (0.0-1.0); %Eosinophils 3.2 % (0.0-10.0); %Lymphocytes 17.4 % (21.0-51.0); %Monocytes 8.3 % (0.0-10.0); %Neutrophils 70.5 % (42.0-75.0); Hemoglobin 12.8 g/dL (14.0-18.0); Mean Corpuscular HGB CONC 34.4 g/dL (32.0-36.0); Mean Corpuscular Hemoglobin 32.8 pg (27.0-31.0); Mean Corpuscular Volume 95.2 fL (78.0-98.0); Mean Platelet Volume 8.9 fL (7.4-10.4); Platelet Count 202 thou/uL (130-400); RBC Distribution Width 11.7 % (11.5-14.5); Red Blood Cell (RBC) Count 3.91 mill/uL (4.70-6.10); White Blood Cell (WBC) Count 7.5 thou/uL (4.8-10.8)
[2021-03-28 10:22] LABS: Anion Gap 10 mmol/L (10-20); BUN (Urea Nitrogen) 17 mg/dL (8.4-25.7); Calc. Creatinine Clearance 97 mL/min (70-130); Calcium 8.4 mg/dL (7.8-10.44); Carbon Dioxide 21 mmol/L (22-29); Chloride 108 mmol/L (98-107); Glucose 153 mg/dL (70-105); Potassium 3.7 mmol/L (3.5-5.1); Sodium 135 mmol/L (136-145)
[2021-03-28] MEDS ORDERED: Lorazepam 2 MG/ML VIAL SLOW IVP PRN (13:12)
[2021-03-28 14:33] LABS: Vancomycin, Trough 12.4 ug/mL
[2021-03-28] MEDS: Cefepime 2 GM in Sodium Chloride 0.9% 100 ML IVPB SCH (16:29)
[2021-03-28] MEDS: VANCOMYCIN 1.75 GM/350 ML BAG 1.75 GM in Premix Bag 1 BAG IVPB SCH (17:21)
[2021-03-28] MEDS: Atorvastatin Calcium 10 MG TAB PO SCH (21:31)
[2021-03-28] MEDS: HYDROcodone/Acetaminophen 5/325 mg Tablet PO PRN (21:31)
[2021-03-29] MEDS: Sodium Chloride 0.9% 1,000 ML IV SCH ×2 (05:56→14:35)
[2021-03-29] MEDS: Famotidine 20 MG TAB PO SCH ×2 (08:10→20:03)
[2021-03-29] MEDS: Magnesium Oxide 400 MG TAB PO SCH (08:10)
[2021-03-29] MEDS: Amlodipine 10 MG TAB PO SCH (08:10)
[2021-03-29] MEDS: Thiamine 100 MG TAB PO SCH (08:10)
[2021-03-29] MEDS: Multivitamin W/ Minerals 1 TAB PO SCH (08:10)
[2021-03-29] MEDS: Aspirin 81 mg Enteric Coated Tablet PO SCH (08:10)
[2021-03-29] MEDS: Carvedilol 6.25 MG TAB PO SCH ×2 (08:10→16:14)
[2021-03-29] MEDS: Folic Acid 1 MG TAB PO SCH (08:11)
[2021-03-29] MEDS: levETIRAcetam 500 MG TAB PO SCH ×2 (08:11→20:03)
[2021-03-29] MEDS ORDERED: CEFAZOLIN 2 GM in Premix Bag 1 BAG IVPB SCH (10:15)
[2021-03-29 11:17] LABS: Hemoglobin 13.6 g/dL (14.0-18.0); Mean Corpuscular HGB CONC 35.4 g/dL (32.0-36.0); Mean Corpuscular Hemoglobin 33.5 pg (27.0-31.0); Mean Corpuscular Volume 94.6 fL (78.0-98.0); Mean Platelet Volume 8.7 fL (7.4-10.4); Platelet Count 225 thou/uL (130-400); RBC Distribution Width 11.7 % (11.5-14.5); Red Blood Cell (RBC) Count 4.07 mill/uL (4.70-6.10); White Blood Cell (WBC) Count 8.5 thou/uL (4.8-10.8)
[2021-03-29 11:18] LABS: #Eosinphils 0.2 thou/uL (0.0-0.7); #Lymphocytes 1.5 thou/uL (1.20-3.40); #Monocytes 0.7 thou/uL (0.11-0.59); #Neutrophils 6.2 thou/uL (1.40-6.50); %Basophils 0.3 % (0.0-1.0); %Eosinophils 2.1 % (0.0-10.0); %Monocytes 7.9 % (0.0-10.0); %Neutrophils 72.7 % (42.0-75.0)
[2021-03-29 11:34] LABS: Anion Gap 11 mmol/L (10-20); BUN (Urea Nitrogen) 16 mg/dL (8.4-25.7); CRP (Inflammatory) 2.73 mg/dL (= or < 0.5); Calc. Creatinine Clearance 100 mL/min (70-130); Calcium 8.9 mg/dL (7.8-10.44); Carbon Dioxide 24 mmol/L (22-29); Chloride 107 mmol/L (98-107); Glucose 82 mg/dL (70-105); Potassium 3.9 mmol/L (3.5-5.1); Sodium 138 mmol/L (136-145)
[2021-03-29] MEDS ORDERED: Fentanyl 100 MCG/2 ML VIAL ONE (12:05)
[2021-03-29] MEDS ORDERED: Dexamethasone 20 MG/5 ML VIAL ONE (12:52)
[2021-03-29] MEDS ORDERED: Lidocaine 1% PF 5 ML VIAL ONE (12:52)
[2021-03-29] MEDS ORDERED: Ondansetron PF 4 MG/2 ML Vial ONE (12:52)
[2021-03-29] MEDS ORDERED: PROPOFOL 200 MG/20 ML VIAL ONE (12:52)
[2021-03-29] MEDS ORDERED: Rocuronium Bromide 10 MG/ML (10ML VIAL) ONE (12:52)
[2021-03-29] MEDS ORDERED: SUGAMMADEX SODIUM 200 MG/2 ML VIAL ONE (13:14)
[2021-03-29] MEDS ORDERED: Ondansetron HCl/PF 4 MG/2 ML Vial IVP PRN (13:31)
[2021-03-29] MEDS ORDERED: Promethazine HCl 25 MG/ML VIAL IVPB PRN (13:31)
[2021-03-29] MEDS: Cefepime 2 GM in Sodium Chloride 0.9% 100 ML IVPB SCH (14:35)
[2021-03-29] MEDS: VANCOMYCIN 2 GRAM/400 ML BAG 2 GM in Premix Bag 1 BAG IVPB SCH (15:35)
[2021-03-29] MEDS: Atorvastatin Calcium 10 MG TAB PO SCH (20:03)
[2021-03-30] MEDS: Sodium Chloride 0.9% 1,000 ML IV SCH (05:43)
[2021-03-30] MEDS: HYDROcodone/Acetaminophen 5/325 mg Tablet PO PRN ×2 (06:04→20:23)
[2021-03-30] MEDS: Folic Acid 1 MG TAB PO SCH (08:40)
[2021-03-30] MEDS: Thiamine 100 MG TAB PO SCH (08:40)
[2021-03-30] MEDS: Aspirin 81 mg Enteric Coated Tablet PO SCH (08:40)
[2021-03-30] MEDS: levETIRAcetam 500 MG TAB PO SCH ×2 (08:40→20:22)
[2021-03-30] MEDS: Multivitamin W/ Minerals 1 TAB PO SCH (08:40)
[2021-03-30] MEDS: Famotidine 20 MG TAB PO SCH ×2 (08:40→20:22)
[2021-03-30] MEDS: Magnesium Oxide 400 MG TAB PO SCH (08:40)
[2021-03-30] MEDS: Amlodipine 10 MG TAB PO SCH (08:41)
[2021-03-30] MEDS: Enoxaparin Sodium 40 MG/0.4 ML SYRINGE SC SCH (08:41)
[2021-03-30] MEDS: Carvedilol 6.25 MG TAB PO SCH ×2 (08:41→17:08)
[2021-03-30] MEDS: VANCOMYCIN 2 GRAM/400 ML BAG 2 GM in Premix Bag 1 BAG IVPB SCH (15:02)
[2021-03-30] MEDS: Atorvastatin Calcium 10 MG TAB PO SCH (20:22)
[2021-03-31] MEDS: HYDROcodone/Acetaminophen 5/325 mg Tablet PO PRN ×2 (06:12→09:52)
[2021-03-31 06:35] LABS: #Basophils 0.1 thou/uL (0.0-0.2); #Eosinphils 0.2 thou/uL (0.0-0.7); #Lymphocytes 2.1 thou/uL (1.20-3.40); #Monocytes 0.7 thou/uL (0.11-0.59); #Neutrophils 7.3 thou/uL (1.40-6.50); %Basophils 0.6 % (0.0-1.0); %Eosinophils 1.8 % (0.0-10.0); %Lymphocytes 20.6 % (21.0-51.0); %Monocytes 6.8 % (0.0-10.0); %Neutrophils 70.3 % (42.0-75.0); Hemoglobin 13.1 g/dL (14.0-18.0); Mean Corpuscular HGB CONC 34.6 g/dL (32.0-36.0); Mean Corpuscular Hemoglobin 32.8 pg (27.0-31.0); Mean Corpuscular Volume 94.9 fL (78.0-98.0); Mean Platelet Volume 8.1 fL (7.4-10.4); Platelet Count 253 thou/uL (130-400); RBC Distribution Width 11.9 % (11.5-14.5); White Blood Cell (WBC) Count 10.4 thou/uL (4.8-10.8)
[2021-03-31 06:52] LABS: Anion Gap 10 mmol/L (10-20); BUN (Urea Nitrogen) 24 mg/dL (8.4-25.7); Calc. Creatinine Clearance 97 mL/min (70-130); Calcium 8.8 mg/dL (7.8-10.44); Carbon Dioxide 22 mmol/L (22-29); Chloride 109 mmol/L (98-107); Glucose 79 mg/dL (70-105); Potassium 4.2 mmol/L (3.5-5.1); Sodium 137 mmol/L (136-145)
[2021-03-31 07:49] VITALS: BP 105/69; TEMP 97.2
[2021-03-31] MEDS: Carvedilol 6.25 MG TAB PO SCH (08:55)
[2021-03-31] MEDS: Amlodipine 10 MG TAB PO SCH (08:56)
[2021-03-31] MEDS: Magnesium Oxide 400 MG TAB PO SCH (08:57)
[2021-03-31] MEDS: Folic Acid 1 MG TAB PO SCH (08:57)
[2021-03-31] MEDS: Thiamine 100 MG TAB PO SCH (08:57)
[2021-03-31] MEDS: levETIRAcetam 500 MG TAB PO SCH (08:57)
[2021-03-31] MEDS: Enoxaparin Sodium 40 MG/0.4 ML SYRINGE SC SCH (08:58)
[2021-03-31] MEDS: Multivitamin W/ Minerals 1 TAB PO SCH (08:58)
[2021-03-31] MEDS: Aspirin 81 mg Enteric Coated Tablet PO SCH (08:58)
[2021-03-31] MEDS: Famotidine 20 MG TAB PO SCH (08:58)
[2021-03-31] MEDS: VANCOMYCIN 2 GRAM/400 ML BAG 2 GM in Premix Bag 1 BAG IVPB SCH (14:50)
[2021-03-31 14:52] VITALS: BMI 29.8
[2021-03-31 14:59] LABS: Vancomycin, Trough 13.3 ug/mL
== END 2021-03-31 16:03 | disposition home health service (06) | DRG 580 ==
LOC: ERS 12:46 → T4-A 16:59 → OBSVTOIN 03-27 11:36
PROVIDERS: ADMIT Internal Medicine; ATTEND Family Medicine
PROC: 0JDG0ZZ Extraction of Right Lower Arm Subcutaneous Tissue and Fascia, Open Approach (ICD-10-PCS; principal; 2021-03-29)
DX: L03.113 Cellulitis of right upper limb (principal); N17.9 Acute kidney failure, unspecified; E87.1 Hypo-osmolality and hyponatremia; F33.9 Major depressive disorder, recurrent, unspecified; N39.0 Urinary tract infection, site not specified; Z20.822 Contact with and (suspected) exposure to COVID-19; L02.413 Cutaneous abscess of right upper limb; B95.62 Methicillin resistant Staphylococcus aureus infection as the cause of diseases classified elsewhere; F41.9 Anxiety disorder, unspecified; I25.10 Atherosclerotic heart disease of native coronary artery without angina pectoris; G40.909 Epilepsy, unspecified, not intractable, without status epilepticus; E78.5 Hyperlipidemia, unspecified; I12.9 Hypertensive chronic kidney disease with stage 1 through stage 4 chronic kidney disease, or unspecified chronic kidney disease; F15.10 Other stimulant abuse, uncomplicated; B96.89 Other specified bacterial agents as the cause of diseases classified elsewhere; N18.9 Chronic kidney disease, unspecified; I69.320 Aphasia following cerebral infarction; Z85.46 Personal history of malignant neoplasm of prostate; Z79.899 Other long term (current) drug therapy; Z79.82 Long term (current) use of aspirin
CPT/HCPCS: 36415; 80048; 80053; 80202; 80306; 81003; 81015; 83605; 85025; 86140; 87040; 87070; 87077; 87086; 87149; 87186; 87205; 96365; 96367; 96372; 96375; 96376; A9579; G0378; J0690; J0692; J1100; J1650; J2060; J2405; J2704; J3010; J3370; J3411; J3475; J3490; U0003; U0005

== ENCOUNTER 2021-04-16 20:25 | Inpatient (IN) | payer OTHER ==
[2021-04-16 21:22] LABS: #Eosinphils 0.2 thou/uL (0.0-0.7); #Lymphocytes 1.1 thou/uL (1.20-3.40); #Monocytes 0.7 thou/uL (0.11-0.59); #Neutrophils 9.2 thou/uL (1.40-6.50); %Eosinophils 1.8 % (0.0-10.0); %Lymphocytes 9.7 % (21.0-51.0); %Monocytes 6.2 % (0.0-10.0); %Neutrophils 82.3 % (42.0-75.0); Hemoglobin 14.5 g/dL (14.0-18.0); Mean Corpuscular HGB CONC 33.7 g/dL (32.0-36.0); Mean Corpuscular Hemoglobin 32.4 pg (27.0-31.0); Mean Platelet Volume 9.2 fL (7.4-10.4); Platelet Count 216 thou/uL (130-400); Red Blood Cell (RBC) Count 4.48 mill/uL (4.70-6.10); White Blood Cell (WBC) Count 11.1 thou/uL (4.8-10.8)
[2021-04-16] MEDS ORDERED: levETIRAcetam in NS 200 ML ONE (21:37)
[2021-04-16 21:42] LABS: ALT (SGPT) 22 U/L (8-55); AST (SGOT) 17 U/L (5-34); Albumin 3.8 g/dL (3.5-5.0); Alkaline Phosphatase 97 U/L (40-110); Anion Gap 11 mmol/L (10-20); BUN (Urea Nitrogen) 17 mg/dL (8.4-25.7); Bilirubin, Total 0.6 mg/dL (0.2-1.2); CK (CPK) 85 U/L (30-200); Calc. Creatinine Clearance 0 mL/min (70-130); Calcium 9.3 mg/dL (7.8-10.44); Carbon Dioxide 25 mmol/L (22-29); Chloride 108 mmol/L (98-107); Glucose 106 mg/dL (70-105); Lipase 29 U/L (8-78); Potassium 4.2 mmol/L (3.5-5.1); Protein, Total 6.8 g/dL (6.0-8.3); Sodium 140 mmol/L (136-145)
[2021-04-16 22:03] LABS: INR-International Normal Ratio 0.9; PTT 26.6 sec (22.9-36.1); Prothrombin Time 12.4 sec (12.0-14.7)
[2021-04-16 22:12] LABS: Acetaminophen Less than 6.0 mcg/mL (10.0-30.0); Alcohol Less than 10 mg/dL (Less than 10); Salicylate Less than 8.0 mg/dL (15.0-30.0)
[2021-04-17] MEDS ORDERED: Acetaminophen 325 MG TAB PO PRN (03:56)
[2021-04-17] MEDS ORDERED: HYDROcodone/Acetaminophen 5/325 mg Tablet PO PRN (03:56)
[2021-04-17] MEDS ORDERED: Ondansetron PF 4 MG/2 ML Vial IVP PRN (03:56)
[2021-04-17] MEDS ORDERED: Aspirin 325 MG TAB ONE (04:21)
[2021-04-17] MEDS: Nicotine 14 MG PATCH TD SCH (04:59)
[2021-04-17] MEDS ORDERED: levETIRAcetam 500 MG TAB PO SCH (09:00)
[2021-04-17] MEDS: Amlodipine 10 MG TAB PO SCH (09:35)
[2021-04-17] MEDS: Aspirin 81 mg Enteric Coated Tablet PO SCH (09:35)
[2021-04-17] MEDS: Carvedilol 6.25 MG TAB PO SCH ×2 (09:35→21:18)
[2021-04-17] MEDS: Famotidine 20 MG TAB PO SCH ×2 (09:35→21:18)
[2021-04-17] MEDS: Enoxaparin Sodium 40 MG/0.4 ML SYRINGE SC SCH (09:36)
[2021-04-17] MEDS ORDERED: Atorvastatin Calcium 10 MG TAB PO SCH (21:00)
[2021-04-17] MEDS ORDERED: Prevnar 13-Val Conj/PF 0.5 ML SYRINGE IM ONE (21:00)
[2021-04-17] MEDS: levETIRAcetam 500 MG TAB PO SCH (21:17)
[2021-04-18 05:13] LABS: Hemoglobin 14.2 g/dL (14.0-18.0); Mean Corpuscular HGB CONC 34.8 g/dL (32.0-36.0); Mean Corpuscular Hemoglobin 33.3 pg (27.0-31.0); Mean Corpuscular Volume 95.7 fL (78.0-98.0); Mean Platelet Volume 9.2 fL (7.4-10.4); Platelet Count 192 thou/uL (130-400); RBC Distribution Width 12.1 % (11.5-14.5); Red Blood Cell (RBC) Count 4.26 mill/uL (4.70-6.10); White Blood Cell (WBC) Count 9.4 thou/uL (4.8-10.8)
[2021-04-18 05:14] LABS: Band 3 % (5-11); Lymphocytes 19 % (21-51); MDiff Complete? YES; Monocytes 6 % (0-10); Neutrophil 71 % (42-75); Platelet Morphology Comment Appears Adequate; RBC Morphology Normal; Reactive Lymphocytes 1 % (0-10)
[2021-04-18] MEDS: Nicotine 14 MG PATCH TD SCH (05:17)
[2021-04-18 05:28] LABS: Albumin 3.3 g/dL (3.5-5.0); Anion Gap 9 mmol/L (10-20); BUN (Urea Nitrogen) 18 mg/dL (8.4-25.7); BUN/Creatinine Ratio 12.08; Calc. Creatinine Clearance 77 mL/min (70-130); Calcium 8.9 mg/dL (7.8-10.44); Carbon Dioxide 26 mmol/L (22-29); Chloride 108 mmol/L (98-107); Glucose 87 mg/dL (70-105); Phosphorus 2.8 mg/dL (2.3-4.7); Potassium 3.6 mmol/L (3.5-5.1); Sodium 139 mmol/L (136-145)
[2021-04-18] MEDS ORDERED: Magnevist 469MG/ML 20 ML VIAL ONE (09:12)
[2021-04-18 09:17] VITALS: BMI 29.9
[2021-04-18] MEDS: Aspirin 81 mg Enteric Coated Tablet PO SCH (10:46)
[2021-04-18] MEDS: levETIRAcetam 500 MG TAB PO SCH (10:46)
[2021-04-18] MEDS: Amlodipine 10 MG TAB PO SCH (10:46)
[2021-04-18] MEDS: Enoxaparin Sodium 40 MG/0.4 ML SYRINGE SC SCH (10:47)
[2021-04-18] MEDS: Famotidine 20 MG TAB PO SCH (10:47)
[2021-04-18] MEDS: Carvedilol 6.25 MG TAB PO SCH (10:47)
[2021-04-18 11:38] VITALS: TEMP 98.2
[2021-04-18 15:33] VITALS: BP 108/68
== END 2021-04-18 19:12 | disposition home or self-care (01) | DRG 101 ==
LOC: ERS 20:25 → 3SE 04-17 03:54 → OBSVTOIN 04-18 15:41
PROVIDERS: ADMIT Internal Medicine; ATTEND Internal Medicine
DX: G40.909 Epilepsy, unspecified, not intractable, without status epilepticus (principal); N17.9 Acute kidney failure, unspecified; I69.351 Hemiplegia and hemiparesis following cerebral infarction affecting right dominant side; T42.6X6A Underdosing of other antiepileptic and sedative-hypnotic drugs, initial encounter; E88.09 Other disorders of plasma-protein metabolism, not elsewhere classified; Z20.828 Contact with and (suspected) exposure to other viral communicable diseases; I25.10 Atherosclerotic heart disease of native coronary artery without angina pectoris; E78.5 Hyperlipidemia, unspecified; N18.30 Chronic kidney disease, stage 3 unspecified; D63.1 Anemia in chronic kidney disease; F41.9 Anxiety disorder, unspecified; F32.9 Major depressive disorder, single episode, unspecified; I12.9 Hypertensive chronic kidney disease with stage 1 through stage 4 chronic kidney disease, or unspecified chronic kidney disease; Z85.46 Personal history of malignant neoplasm of prostate; I69.320 Aphasia following cerebral infarction; Z79.899 Other long term (current) drug therapy; Z79.82 Long term (current) use of aspirin; Z82.49 Family history of ischemic heart disease and other diseases of the circulatory system; Z91.14 Patient's other noncompliance with medication regimen
CPT/HCPCS: 36415; 51701; 70450; 70553; 71045; 80053; 80069; 80307; 82550; 83605; 83690; 84443; 84484; 85007; 85025; 85027; 85610; 85730; 93005; 95712; 95819; 95957; 96365; 96372; A9579; G0378; J1650; J1953

== ENCOUNTER 2021-05-18 01:49 | Inpatient (IN) | payer OTHER ==
[2021-05-18] MEDS ORDERED: Cefepime 2 GM VIAL ONE ×2 (02:10→02:23)
[2021-05-18] MEDS ORDERED: levETIRAcetam in NS 1,000 MG in Premix Bag 1 BAG IVPB SCH ×2 (02:15→14:00)
[2021-05-18] MEDS ORDERED: levETIRAcetam in NS 100 ML ONE (02:23)
[2021-05-18] MEDS ORDERED: Vancomycin 1 GM/200 ML BAG ONE (02:25)
[2021-05-18 02:50] LABS: ALT (SGPT) 38 U/L (8-55); AST (SGOT) 24 U/L (5-34); Albumin 3.3 g/dL (3.5-5.0); Alkaline Phosphatase 145 U/L (40-110); Anion Gap 16 mmol/L (10-20); BUN (Urea Nitrogen) 22 mg/dL (8.4-25.7); Bilirubin, Total 0.4 mg/dL (0.2-1.2); Calc. Creatinine Clearance 0 mL/min (70-130); Calcium 8.7 mg/dL (7.8-10.44); Carbon Dioxide 21 mmol/L (22-29); Chloride 104 mmol/L (98-107); Globulin 3.3 g/dL (2.4-3.5); Glucose 236 mg/dL (70-105); Magnesium 2.2 mg/dL (1.6-2.6); Potassium 3.9 mmol/L (3.5-5.1); Protein, Total 6.6 g/dL (6.0-8.3); Sodium 137 mmol/L (136-145)
[2021-05-18 02:58] LABS: Hemoglobin 15.7 g/dL (14.0-18.0); Mean Corpuscular HGB CONC 34.1 g/dL (32.0-36.0); Mean Corpuscular Hemoglobin 32.6 pg (27.0-31.0); Mean Corpuscular Volume 95.7 fL (78.0-98.0); Mean Platelet Volume 8.8 fL (7.4-10.4); Platelet Count 332 thou/uL (130-400); Red Blood Cell (RBC) Count 4.81 mill/uL (4.70-6.10); White Blood Cell (WBC) Count 20.3 thou/uL (4.8-10.8)
[2021-05-18 03:05] LABS: Acetaminophen Less than 6.0 mcg/mL (10.0-30.0); Alcohol Less than 10 mg/dL (Less than 10); Salicylate Less than 8.0 mg/dL (15.0-30.0)
[2021-05-18 03:08] LABS: Band 1 % (5-11); Lymphocytes 14 % (21-51); MDiff Complete? YES; Monocytes 5 % (0-10); Neutrophil 80 % (42-75); Platelet Morphology Comment Appears Adequate; RBC Morphology Normal
[2021-05-18] MEDS ORDERED: Lorazepam 2 MG/ML VIAL ONE (03:43)
[2021-05-18 04:42] LABS: CSF Source CSF; Clarity Clear (Clear); Tube # 3
[2021-05-18 04:43] LABS: CSF Source CSF; Clarity Clear (Clear); Tube # 1
[2021-05-18 05:10] LABS: CSF, Glucose 89 mg/dl (40-70); CSF, Protein 36 mg/dL (15-40)
[2021-05-18 05:47] LABS: Color Of CSF Supernatant COLORLESS (Colorless); Tube # 2; Unspun CSF Color COLORLESS (Colorless)
[2021-05-18 06:11] LABS: Lactic Acid 1.4 mmol/L (0.5-2.2)
[2021-05-18 06:18] LABS: Troponin I 0.194 ng/mL (< 0.028)
[2021-05-18] MEDS ORDERED: Ondansetron PF 4 MG/2 ML Vial IVP PRN (06:25)
[2021-05-18] MEDS ORDERED: Acetaminophen 325 MG TAB PO PRN (06:25)
[2021-05-18 06:53] LABS: Hemoglobin A1c 5.3 % (4.0-6.0)
[2021-05-18] MEDS ORDERED: Lorazepam 2 MG/ML VIAL SLOW IVP PRN (06:54)
[2021-05-18] MEDS ORDERED: hydrALAZINE 20 MG/ML VIAL SLOW IVP PRN (06:54)
[2021-05-18] MEDS ORDERED: Sodium Chloride 0.9% 1,000 ML IV SCH (07:00)
[2021-05-18 08:58] VITALS: BMI 28.0
[2021-05-18] MEDS ORDERED: Vancomycin 1 GM in Premix Bag 1 BAG IVPB SCH (09:30)
[2021-05-18] MEDS: Heparin 5,000 UNITS/ML VIAL SC SCH ×3 (09:48→20:25)
[2021-05-18 10:12] LABS: Troponin I 0.255 ng/mL (< 0.028)
[2021-05-18] MEDS ORDERED: Acetaminophen 650 MG Suppository PR PRN (11:43)
[2021-05-18 12:31] LABS: SARS-CoV-2 PCR by NAA Not Detected (NotDetected)
[2021-05-18] MEDS ORDERED: Cefepime 1 GM in Sodium Chloride 0.9% 100 ML IVPB SCH (14:00)
[2021-05-18] MEDS ORDERED: levETIRAcetam 500 MG TAB PO SCH (14:00)
[2021-05-18] MEDS: Cefepime 2 GM in Sodium Chloride 0.9% 100 ML IVPB SCH (15:41)
[2021-05-18] MEDS: Sodium Chloride 0.9% 1,000 ML IV SCH (15:42)
[2021-05-18 17:24] LABS: Bilirubin Negative (Negative); Blood, Urine Trace (Negative); Clarity Turbid (Clear); Glucose, Urine (Dipstick) Normal (Negative); Ketone, Urine Negative (Negative); Leukocyte 75 Leu/uL (Negative); Nitrite Negative (Negative); Protein, Urine (Dipstick) Negative (Neg-Trace); RBC/HPF 0-3 HPF (0-3); Squamous Epithelial 0-3 HPF (0-3); Urobilinogen Normal mg/dL (Less than 2)
[2021-05-18 17:27] LABS: Amphetamine Not Detected (NotDetected); Barbiturates Screen Not Detected (NotDetected); Benzodiazepine Screen Detected (NotDetected); Cocaine Metabolite Screen Not Detected (NotDetected); Methadone Not Detected (NotDetected); Methamphetamine Detected (NotDetected); Opiate Screen Not Detected (NotDetected); Oxycodone Screen Not Detected (NotDetected); Phencyclidine (PCP) Not Detected (NotDetected); THC/Cannabinoid Screen Not Detected (NotDetected); Tricyclic Screen Not Detected (NotDetected)
[2021-05-18 17:32] LABS: Bacteria/HPF 1+ HPF (None Seen)
[2021-05-18 17:33] LABS: Urine Culture Reflex Yes Yes
[2021-05-18] MEDS ORDERED: levETIRAcetam in NS 750 MG in Premix Bag 1 BAG IVPB SCH (19:00)
[2021-05-19] MEDS: Cefepime 2 GM in Sodium Chloride 0.9% 100 ML IVPB SCH ×2 (02:07→14:08)
[2021-05-19 05:05] LABS: #Eosinphils 0.1 thou/uL (0.0-0.7); #Lymphocytes 1.6 thou/uL (1.20-3.40); #Monocytes 1.3 thou/uL (0.11-0.59); #Neutrophils 12.4 thou/uL (1.40-6.50); %Basophils 0.1 % (0.0-1.0); %Eosinophils 0.6 % (0.0-10.0); %Lymphocytes 10.1 % (21.0-51.0); %Monocytes 8.5 % (0.0-10.0); %Neutrophils 80.7 % (42.0-75.0); Hemoglobin 13.4 g/dL (14.0-18.0); Mean Corpuscular HGB CONC 34.1 g/dL (32.0-36.0); Mean Corpuscular Hemoglobin 32.4 pg (27.0-31.0); Mean Platelet Volume 8.5 fL (7.4-10.4); Platelet Count 294 thou/uL (130-400); Red Blood Cell (RBC) Count 4.13 mill/uL (4.70-6.10); White Blood Cell (WBC) Count 15.3 thou/uL (4.8-10.8)
[2021-05-19 05:25] LABS: Anion Gap 12 mmol/L (10-20); BUN (Urea Nitrogen) 24 mg/dL (8.4-25.7); Calc. Creatinine Clearance 66 mL/min (70-130); Calcium 8.1 mg/dL (7.8-10.44); Carbon Dioxide 23 mmol/L (22-29); Chloride 108 mmol/L (98-107); Glucose 100 mg/dL (70-105); Sodium 139 mmol/L (136-145)
[2021-05-19] MEDS: Sodium Chloride 0.9% 1,000 ML IV SCH ×2 (06:12→15:35)
[2021-05-19] MEDS ORDERED: FLU VACC QS2021-22(6MOS UP)/PF 60 MCG/0.5 ML SYRINGE IM ONE (09:00)
[2021-05-19 09:21] LABS: Troponin I 0.085 ng/mL (< 0.028)
[2021-05-19] MEDS: Heparin 5,000 UNITS/ML VIAL SC SCH ×3 (09:25→20:59)
[2021-05-19] MEDS: VANCOMYCIN 2 GRAM/400 ML BAG 2 GM in Premix Bag 1 BAG IVPB SCH (09:26)
[2021-05-20] MEDS: Cefepime 2 GM in Sodium Chloride 0.9% 100 ML IVPB SCH ×2 (01:59→14:59)
[2021-05-20 05:13] LABS: #Basophils 0.1 thou/uL (0.0-0.2); #Eosinphils 0.3 thou/uL (0.0-0.7); #Lymphocytes 1.6 thou/uL (1.20-3.40); #Monocytes 0.9 thou/uL (0.11-0.59); #Neutrophils 9.4 thou/uL (1.40-6.50); %Basophils 0.8 % (0.0-1.0); %Eosinophils 2.3 % (0.0-10.0); %Lymphocytes 13.3 % (21.0-51.0); %Monocytes 7.3 % (0.0-10.0); %Neutrophils 76.3 % (42.0-75.0); Hemoglobin 13.6 g/dL (14.0-18.0); Mean Corpuscular HGB CONC 31.1 g/dL (32.0-36.0); Mean Corpuscular Hemoglobin 29.2 pg (27.0-31.0); Mean Corpuscular Volume 93.8 fL (78.0-98.0); Mean Platelet Volume 8.5 fL (7.4-10.4); Platelet Count 365 thou/uL (130-400); RBC Distribution Width 11.9 % (11.5-14.5); Red Blood Cell (RBC) Count 4.64 mill/uL (4.70-6.10); White Blood Cell (WBC) Count 12.3 thou/uL (4.8-10.8)
[2021-05-20 05:30] LABS: Anion Gap 13 mmol/L (10-20); BUN (Urea Nitrogen) 22 mg/dL (8.4-25.7); Calc. Creatinine Clearance 81 mL/min (70-130); Calcium 8.5 mg/dL (7.8-10.44); Carbon Dioxide 21 mmol/L (22-29); Chloride 107 mmol/L (98-107); Glucose 83 mg/dL (70-105); Potassium 4.1 mmol/L (3.5-5.1); Sodium 137 mmol/L (136-145)
[2021-05-20] MEDS: Sodium Chloride 0.9% 1,000 ML IV SCH ×3 (06:35→21:14)
[2021-05-20] MEDS: Heparin 5,000 UNITS/ML VIAL SC SCH ×3 (08:37→21:14)
[2021-05-20] MEDS: VANCOMYCIN 2 GRAM/400 ML BAG 2 GM in Premix Bag 1 BAG IVPB SCH (08:37)
[2021-05-21] MEDS: Cefepime 2 GM in Sodium Chloride 0.9% 100 ML IVPB SCH (02:31)
[2021-05-21 05:22] LABS: #Eosinphils 0.2 thou/uL (0.0-0.7); #Lymphocytes 2.1 thou/uL (1.20-3.40); #Monocytes 0.9 thou/uL (0.11-0.59); #Neutrophils 8.4 thou/uL (1.40-6.50); %Basophils 0.2 % (0.0-1.0); %Lymphocytes 17.7 % (21.0-51.0); %Neutrophils 72.1 % (42.0-75.0); Hemoglobin 13.6 g/dL (14.0-18.0); Mean Corpuscular HGB CONC 32.8 g/dL (32.0-36.0); Mean Corpuscular Hemoglobin 30.6 pg (27.0-31.0); Mean Corpuscular Volume 93.2 fL (78.0-98.0); Mean Platelet Volume 8.2 fL (7.4-10.4); Platelet Count 356 thou/uL (130-400); RBC Distribution Width 11.7 % (11.5-14.5); Red Blood Cell (RBC) Count 4.44 mill/uL (4.70-6.10); White Blood Cell (WBC) Count 11.6 thou/uL (4.8-10.8)
[2021-05-21 05:39] LABS: Anion Gap 12 mmol/L (10-20); BUN (Urea Nitrogen) 23 mg/dL (8.4-25.7); Calc. Creatinine Clearance 89 mL/min (70-130); Calcium 8.7 mg/dL (7.8-10.44); Carbon Dioxide 23 mmol/L (22-29); Chloride 107 mmol/L (98-107); Glucose 88 mg/dL (70-105); Potassium 4.1 mmol/L (3.5-5.1); Sodium 138 mmol/L (136-145)
[2021-05-21] MEDS: Sodium Chloride 0.9% 1,000 ML IV SCH ×4 (06:53→22:00)
[2021-05-21] MEDS ORDERED: Non-Formulary Item 1 EACH (Sertraline Hcl [Sertraline Hcl] 50 MG Tablet) PO SCH (09:00)
[2021-05-21] MEDS ORDERED: Vancomycin 1 GM in Premix Bag 1 BAG IVPB SCH (09:00)
[2021-05-21] MEDS ORDERED: Amlodipine 10 MG TAB PO SCH (09:00)
[2021-05-21] MEDS: Aspirin 81 mg Enteric Coated Tablet PO SCH (09:19)
[2021-05-21] MEDS: Nicotine 14 MG PATCH TD SCH (09:19)
[2021-05-21] MEDS: Amlodipine 10 MG TAB PO SCH (09:20)
[2021-05-21] MEDS: Heparin 5,000 UNITS/ML VIAL SC SCH ×3 (09:20→21:45)
[2021-05-21] MEDS: Carvedilol 6.25 MG TAB PO SCH ×2 (09:23→21:44)
[2021-05-21] MEDS ORDERED: Simvastatin 20 MG TAB PO SCH (21:00)
[2021-05-21] MEDS: Atorvastatin Calcium 10 MG TAB PO SCH (21:44)
[2021-05-22] MEDS: Nicotine 14 MG PATCH TD SCH (08:49)
[2021-05-22] MEDS: Amlodipine 10 MG TAB PO SCH (08:49)
[2021-05-22] MEDS: Carvedilol 6.25 MG TAB PO SCH ×2 (08:49→21:37)
[2021-05-22] MEDS: Aspirin 81 mg Enteric Coated Tablet PO SCH (08:49)
[2021-05-22] MEDS: Heparin 5,000 UNITS/ML VIAL SC SCH ×3 (08:49→21:37)
[2021-05-22] MEDS: Sodium Chloride 0.9% 1,000 ML IV SCH (08:54)
[2021-05-22 09:18] LABS: #Eosinphils 0.3 thou/uL (0.0-0.7); #Lymphocytes 2.3 thou/uL (1.20-3.40); #Monocytes 0.8 thou/uL (0.11-0.59); #Neutrophils 6.9 thou/uL (1.40-6.50); %Basophils 0.2 % (0.0-1.0); %Eosinophils 2.6 % (0.0-10.0); %Neutrophils 67.3 % (42.0-75.0); Hemoglobin 13.8 g/dL (14.0-18.0); Mean Corpuscular HGB CONC 33.4 g/dL (32.0-36.0); Mean Corpuscular Volume 92.6 fL (78.0-98.0); Mean Platelet Volume 7.9 fL (7.4-10.4); Platelet Count 356 thou/uL (130-400); RBC Distribution Width 11.8 % (11.5-14.5); Red Blood Cell (RBC) Count 4.44 mill/uL (4.70-6.10); White Blood Cell (WBC) Count 10.3 thou/uL (4.8-10.8)
[2021-05-22 09:40] LABS: Anion Gap 10 mmol/L (10-20); BUN (Urea Nitrogen) 21 mg/dL (8.4-25.7); Calc. Creatinine Clearance 90 mL/min (70-130); Carbon Dioxide 27 mmol/L (22-29); Chloride 107 mmol/L (98-107); Glucose 84 mg/dL (70-105); Sodium 140 mmol/L (136-145)
[2021-05-22] MEDS: Atorvastatin Calcium 10 MG TAB PO SCH (21:37)
[2021-05-23] MEDS: Sodium Chloride 0.9% 1,000 ML IV SCH ×2 (04:56→14:49)
[2021-05-23 05:15] LABS: #Eosinphils 0.2 thou/uL (0.0-0.7); #Lymphocytes 2.2 thou/uL (1.20-3.40); #Monocytes 0.9 thou/uL (0.11-0.59); #Neutrophils 7.1 thou/uL (1.40-6.50); %Basophils 0.5 % (0.0-1.0); %Eosinophils 1.7 % (0.0-10.0); %Lymphocytes 21.2 % (21.0-51.0); %Monocytes 8.2 % (0.0-10.0); %Neutrophils 68.4 % (42.0-75.0); Hemoglobin 13.8 g/dL (14.0-18.0); Mean Corpuscular HGB CONC 32.6 g/dL (32.0-36.0); Mean Corpuscular Volume 95.2 fL (78.0-98.0); Mean Platelet Volume 9.5 fL (7.4-10.4); Platelet Count 274 thou/uL (130-400); RBC Distribution Width 11.9 % (11.5-14.5); Red Blood Cell (RBC) Count 4.46 mill/uL (4.70-6.10); White Blood Cell (WBC) Count 10.3 thou/uL (4.8-10.8)
[2021-05-23 05:18] LABS: Anion Gap 18 mmol/L (10-20); BUN (Urea Nitrogen) 20 mg/dL (8.4-25.7); Calc. Creatinine Clearance 103 mL/min (70-130); Calcium 8.8 mg/dL (7.8-10.44); Carbon Dioxide 17 mmol/L (22-29); Chloride 108 mmol/L (98-107); Glucose 74 mg/dL (70-105); Potassium 4.4 mmol/L (3.5-5.1); Sodium 139 mmol/L (136-145)
[2021-05-23] MEDS: Heparin 5,000 UNITS/ML VIAL SC SCH ×3 (08:41→20:58)
[2021-05-23] MEDS: Aspirin 81 mg Enteric Coated Tablet PO SCH (08:42)
[2021-05-23] MEDS: Carvedilol 6.25 MG TAB PO SCH ×2 (08:42→20:58)
[2021-05-23] MEDS: Amlodipine 10 MG TAB PO SCH (08:42)
[2021-05-23] MEDS: Nicotine 14 MG PATCH TD SCH (08:54)
[2021-05-23] MEDS: Atorvastatin Calcium 10 MG TAB PO SCH (20:58)
[2021-05-24] MEDS: Sodium Chloride 0.9% 1,000 ML IV SCH ×3 (00:07→17:01)
[2021-05-24] MEDS: Nicotine 14 MG PATCH TD SCH (08:00)
[2021-05-24] MEDS: Amlodipine 10 MG TAB PO SCH (08:00)
[2021-05-24] MEDS: Carvedilol 6.25 MG TAB PO SCH (08:00)
[2021-05-24] MEDS: Aspirin 81 mg Enteric Coated Tablet PO SCH (08:00)
[2021-05-24] MEDS: Heparin 5,000 UNITS/ML VIAL SC SCH ×2 (08:00→16:02)
[2021-05-24 15:38] VITALS: BP 127/68; TEMP 98.3
== END 2021-05-24 17:35 | disposition home or self-care (01) | DRG 871 ==
LOC: ERS 01:49 → 2NO 05:25
PROVIDERS: ADMIT Internal Medicine; ATTEND Internal Medicine
PROC: 009U3ZX Drainage of Spinal Canal, Percutaneous Approach, Diagnostic (ICD-10-PCS; principal; 2021-05-18)
DX: A41.51 Sepsis due to Escherichia coli [E. coli] (principal); J96.01 Acute respiratory failure with hypoxia; I69.951 Hemiplegia and hemiparesis following unspecified cerebrovascular disease affecting right dominant side; N17.9 Acute kidney failure, unspecified; N39.0 Urinary tract infection, site not specified; G40.919 Epilepsy, unspecified, intractable, without status epilepticus; G93.49 Other encephalopathy; F15.10 Other stimulant abuse, uncomplicated; E78.5 Hyperlipidemia, unspecified; E78.00 Pure hypercholesterolemia, unspecified; F41.9 Anxiety disorder, unspecified; F32.A Depression, unspecified; C61 Malignant neoplasm of prostate; Z20.822 Contact with and (suspected) exposure to COVID-19; N18.2 Chronic kidney disease, stage 2 (mild); I25.10 Atherosclerotic heart disease of native coronary artery without angina pectoris; I12.9 Hypertensive chronic kidney disease with stage 1 through stage 4 chronic kidney disease, or unspecified chronic kidney disease; R73.9 Hyperglycemia, unspecified; G93.89 Other specified disorders of brain; Z79.899 Other long term (current) drug therapy; I25.2 Old myocardial infarction; Z79.82 Long term (current) use of aspirin; I69.920 Aphasia following unspecified cerebrovascular disease; Z91.14 Patient's other noncompliance with medication regimen
CPT/HCPCS: 36415; 36416; 62270; 70450; 71045; 80048; 80053; 80202; 80306; 80307; 81001; 82553; 82945; 83036; 83605; 83735; 84157; 84443; 84484; 85025; 87040; 87070; 87086; 87205; 89051; 93005; 93010; 95712; 95819; 95957; 96365; 96367; 96375; J0692; J1644; J1953; J2060; J3370; J3490; J7050; U0003; U0005

== ENCOUNTER 2021-12-12 22:39 | Emergency (ER) | payer OTHER | END 2021-12-13 01:37 | disposition home or self-care (01) | LOC: ERS 22:39 | DX: S40.811A Abrasion of right upper arm, initial encounter (principal); E78.5 Hyperlipidemia, unspecified; E78.00 Pure hypercholesterolemia, unspecified; I10 Essential (primary) hypertension; I25.2 Old myocardial infarction; F17.210 Nicotine dependence, cigarettes, uncomplicated; Z86.73 Personal history of transient ischemic attack (TIA), and cerebral infarction without residual deficits; V03.10XA Pedestrian on foot injured in collision with car, pick-up truck or van in traffic accident, initial encounter | CPT/HCPCS: 70450; 72125 ==

== ENCOUNTER 2021-12-15 16:34 | Emergency (ER) | payer OTHER ==
[2021-12-15 19:13] LABS: #Eosinphils 0.2 thou/uL (0.0-0.7); #Lymphocytes 1.8 thou/uL (1.20-3.40); #Monocytes 0.6 thou/uL (0.11-0.59); #Neutrophils 7.5 thou/uL (1.40-6.50); %Basophils 0.1 % (0.0-1.0); %Eosinophils 1.7 % (0.0-10.0); %Lymphocytes 17.8 % (21.0-51.0); %Monocytes 5.6 % (0.0-10.0); %Neutrophils 74.9 % (42.0-75.0); Hemoglobin 15.7 g/dL (14.0-18.0); Mean Corpuscular HGB CONC 33.3 g/dL (32.0-36.0); Mean Corpuscular Hemoglobin 32.3 pg (27.0-31.0); Mean Corpuscular Volume 97.1 fL (78.0-98.0); Mean Platelet Volume 8.6 fL (7.4-10.4); Platelet Count 207 thou/uL (130-400); RBC Distribution Width 11.9 % (11.5-14.5); Red Blood Cell (RBC) Count 4.84 mill/uL (4.70-6.10); White Blood Cell (WBC) Count 10.1 thou/uL (4.8-10.8)
[2021-12-15 19:35] LABS: ALT (SGPT) 9 U/L (8-55); AST (SGOT) 11 U/L (5-34); Albumin 3.7 g/dL (3.5-5.0); Alkaline Phosphatase 68 U/L (40-110); Anion Gap 14 mmol/L (10-20); BUN (Urea Nitrogen) 25 mg/dL (8.4-25.7); Bilirubin, Total 0.8 mg/dL (0.2-1.2); Calc. Creatinine Clearance 0 mL/min (70-130); Calcium 9.3 mg/dL (7.8-10.44); Carbon Dioxide 23 mmol/L (22-29); Chloride 108 mmol/L (98-107); Globulin 3.2 g/dL (2.4-3.5); Glucose 85 mg/dL (70-105); Potassium 4.3 mmol/L (3.5-5.1); Protein, Total 6.9 g/dL (6.0-8.3); Sodium 141 mmol/L (136-145)
[2021-12-15 19:44] LABS: Bacteria/HPF 3+ HPF (None Seen); Bilirubin Negative (Negative); Blood, Urine 1+ (Negative); Calcium Oxalate Crystals Rare HPF (None Seen); Clarity Extra Turbid (Clear); Glucose, Urine (Dipstick) Normal (Negative); Ketone, Urine Negative (Negative); Leukocyte 500 Leu/uL (Negative); Nitrite 2+ (Negative); Protein, Urine (Dipstick) 30 mg/dL (Neg-Trace); Renal Epithelial 0-3 HPF (None Seen); Specific Gravity, Urine 1.018 (1.002-1.036); Squamous Epithelial 0-3 HPF (0-3); Urobilinogen Normal mg/dL (Less than 2); WBC/HPF Greater than 50 HPF (0-3); pH, Urine 7.5 (5.0-9.0)
[2021-12-15 19:46] LABS: Amphetamine Not Detected (NotDetected); Barbiturates Screen Not Detected (NotDetected); Benzodiazepine Screen Not Detected (NotDetected); Cocaine Metabolite Screen Not Detected (NotDetected); Methadone Not Detected (NotDetected); Methamphetamine Not Detected (NotDetected); Opiate Screen Not Detected (NotDetected); Oxycodone Screen Not Detected (NotDetected); Phencyclidine (PCP) Not Detected (NotDetected); THC/Cannabinoid Screen Not Detected (NotDetected); Tricyclic Screen Not Detected (NotDetected)
[2021-12-15] MEDS ORDERED: cefTRIAXone\\ROCEPHIN 1 GM VIAL ONE (20:14)
== END 2021-12-15 21:30 | disposition left against medical advice (07) ==
LOC: ERS 16:34
DX: N39.0 Urinary tract infection, site not specified (principal); E86.0 Dehydration; E78.5 Hyperlipidemia, unspecified; E78.00 Pure hypercholesterolemia, unspecified; I10 Essential (primary) hypertension; I25.2 Old myocardial infarction; F17.210 Nicotine dependence, cigarettes, uncomplicated
CPT/HCPCS: 36415; 70450; 71045; 80053; 80306; 81003; 81015; 84443; 85025; 87077; 87086; 87186; 93005; 96374; J0696

== ENCOUNTER 2024-02-11 19:56 | Inpatient (IN) | payer OTHER ==
[2024-02-11 20:37] LABS: #Basophils 0.04 10x3/uL (0.0-0.2); %Basophils 0.4 % (0.0-1.0); %Eosinophils 0.6 % (0.0-10.0); %Lymphocytes 10.9 % (21.0-51.0); %Monocytes 6.1 % (0.0-10.0); %Neutrophils 81.7 % (42.0-75.0); Hematocrit 48.4 % (42.0-52.0); Hemoglobin 16.4 g/dL (14.0-18.0); Mean Corpuscular HGB CONC 33.9 g/dL (32.0-36.0); Mean Corpuscular Hemoglobin 31.5 pg (27.0-31.0); Mean Corpuscular Volume 92.9 fL (78.0-98.0); Mean Platelet Volume 11.2 fL (7.4-10.4); Platelet Count 237 10x3/uL (130-400); RBC Distribution Width 12.3 % (11.5-14.5); Red Blood Cell (RBC) Count 5.21 mill/uL (4.70-6.10)
[2024-02-11 20:59] LABS: Lipase 26 U/L (8-78); Magnesium 2.1 mg/dL (1.6-2.6)
[2024-02-11 21:00] LABS: Acetaminophen Less than 10 mcg/mL (10.0-30.0); Alcohol Less than 10.0 mg/dL (Less than 10); Salicylate Less than 8.0 mg/dL (15.0-30.0); Troponin I 0.022 ng/mL (< 0.028)
[2024-02-11 21:02] LABS: ALT (SGPT) 10 U/L (8-55); AST (SGOT) 18 U/L (5-34); Albumin 3.6 g/dL (3.4-4.8); Alkaline Phosphatase 66 U/L (40-110); Anion Gap 20 mmol/L (10-20); BUN (Urea Nitrogen) 34 mg/dL (8.4-25.7); Bilirubin, Total 0.7 mg/dL (0.2-1.2); CK (CPK) 133 U/L (30-200); Calc. Creatinine Clearance 0 mL/min (70-130); Calcium 9.3 mg/dL (7.8-10.44); Carbon Dioxide 20 mmol/L (23-31); Chloride 102 mmol/L (98-107); Estimated GFR 44; Globulin 3.9 g/dL (2.4-3.5); Glucose 156 mg/dL (80-115); Potassium 4.9 mmol/L (3.5-5.1); Protein, Total 7.5 g/dL (5.8-8.1); Sodium 137 mmol/L (136-145)
[2024-02-11 21:34] LABS: Amphetamine Detected (NotDetected); Bacteria/HPF 4+ HPF (None Seen); Barbiturates Screen Not Detected (NotDetected); Benzodiazepine Screen Not Detected (NotDetected); Bilirubin Negative (Negative); Blood, Urine Negative (Negative); CAUTI Indications for Culture Dysuria,urgency,freq; Clarity Turbid (Clear); Cocaine Metabolite Screen Not Detected (NotDetected); Glucose, Urine (Dipstick) Normal (Negative); Ketone, Urine 20 mg/dL (Negative); Leukocyte 25 Leu/uL (Negative); Methadone Not Detected (NotDetected); Methamphetamine Detected (NotDetected); Nitrite Negative (Negative); Opiate Screen Not Detected (NotDetected); Oxycodone Screen Not Detected (NotDetected); Phencyclidine (PCP) Not Detected (NotDetected); Protein, Urine (Dipstick) 20 mg/dL (Neg-Trace); RBC/HPF 0-3 HPF (0-3); THC/Cannabinoid Screen Not Detected (NotDetected); Tricyclic Screen Not Detected (NotDetected); pH, Urine 5.5 (5.0-9.0)
[2024-02-11 21:35] LABS: Urine Culture Reflex Yes Yes
[2024-02-11] MEDS ORDERED: cefTRIAXone (ROCEPHIN) 1 GM VIAL ONE (23:39)
[2024-02-11] MEDS ORDERED: Sodium Chloride 0.9% 100 ML ONE (23:40)
[2024-02-12] MEDS ORDERED: Ondansetron ODT 4 MG TAB PO PRN (00:31)
[2024-02-12] MEDS ORDERED: Acetaminophen 650 MG Suppository PR PRN (00:31)
[2024-02-12] MEDS ORDERED: Acetaminophen 325 MG TAB PO PRN (00:31)
[2024-02-12] MEDS ORDERED: Ondansetron PF 4 MG/2 ML Vial IVP PRN (00:31)
[2024-02-12 01:21] VITALS: BMI 27.3
[2024-02-12 05:15] LABS: #Basophils 0.05 10x3/uL (0.0-0.2); %Basophils 0.5 % (0.0-1.0); %Eosinophils 2.2 % (0.0-10.0); %Monocytes 10.5 % (0.0-10.0); %Neutrophils 62.4 % (42.0-75.0); Mean Corpuscular HGB CONC 34.9 g/dL (32.0-36.0); Mean Corpuscular Hemoglobin 31.8 pg (27.0-31.0); Mean Corpuscular Volume 91.3 fL (78.0-98.0); Mean Platelet Volume 10.8 fL (7.4-10.4); Platelet Count 238 10x3/uL (130-400); RBC Distribution Width 12.3 % (11.5-14.5); Red Blood Cell (RBC) Count 4.71 mill/uL (4.70-6.10)
[2024-02-12 05:49] LABS: ALT (SGPT) 8 U/L (8-55); AST (SGOT) 11 U/L (5-34); Albumin 3.3 g/dL (3.4-4.8); Alkaline Phosphatase 71 U/L (40-110); Anion Gap 11 mmol/L (10-20); BUN (Urea Nitrogen) 34 mg/dL (8.4-25.7); Bilirubin, Total 0.5 mg/dL (0.2-1.2); Calc. Creatinine Clearance 59 mL/min (70-130); Calcium 9.2 mg/dL (7.8-10.44); Carbon Dioxide 21 mmol/L (23-31); Chloride 109 mmol/L (98-107); Estimated GFR 50; Globulin 3.1 g/dL (2.4-3.5); Glucose 80 mg/dL (80-115); Protein, Total 6.4 g/dL (5.8-8.1); Sodium 137 mmol/L (136-145)
[2024-02-12] MEDS: Carvedilol 6.25 MG TAB PO SCH (08:24)
[2024-02-12] MEDS: Famotidine/PF 20 mg/2ml Vial SLOW IVP SCH (08:25)
[2024-02-12] MEDS: Famotidine 20 MG TAB PO SCH (08:25)
[2024-02-12] MEDS: Sertraline 100 MG TAB PO SCH (08:25)
[2024-02-12] MEDS: Amlodipine 5 MG TAB PO SCH (08:25)
[2024-02-12] MEDS: Lisinopril 10 MG TAB PO SCH (08:25)
[2024-02-12] MEDS: Aspirin 81 mg Enteric Coated Tablet PO SCH (08:25)
[2024-02-12] MEDS: levETIRAcetam 500 mg/5 ml Oral Solution PO SCH (08:25)
[2024-02-12] MEDS: Vancomycin (BATCH) 2 GM in Premix 1 BAG IVPB SCH (16:23)
[2024-02-12] MEDS: Atorvastatin Calcium 10 MG TAB PO SCH (20:33)
[2024-02-12] MEDS ORDERED: Vancomycin 1 GM in Premix 1 BAG IVPB SCH (21:00)
[2024-02-13] MEDS: cefTRIAXone\\ROCEPHIN 1 GM in Sodium Chloride 0.9% 100 ML IVPB SCH (00:19)
[2024-02-13 08:42] LABS: #Basophils 0.05 10x3/uL (0.0-0.2); %Basophils 0.7 % (0.0-1.0); %Eosinophils 2.5 % (0.0-10.0); %Lymphocytes 28.5 % (21.0-51.0); %Monocytes 9.1 % (0.0-10.0); %Neutrophils 58.8 % (42.0-75.0); Hematocrit 41.9 % (42.0-52.0); Hemoglobin 14.5 g/dL (14.0-18.0); Mean Corpuscular HGB CONC 34.6 g/dL (32.0-36.0); Mean Corpuscular Hemoglobin 31.3 pg (27.0-31.0); Mean Corpuscular Volume 90.3 fL (78.0-98.0); Mean Platelet Volume 11.2 fL (7.4-10.4); Platelet Count 203 10x3/uL (130-400); RBC Distribution Width 12.4 % (11.5-14.5); Red Blood Cell (RBC) Count 4.64 mill/uL (4.70-6.10)
[2024-02-13 08:53] LABS: Vancomycin, Random 23.4 ug/mL (See Comment)
[2024-02-13 08:56] LABS: Anion Gap 11 mmol/L (10-20); BUN (Urea Nitrogen) 28 mg/dL (8.4-25.7); Calc. Creatinine Clearance 55 mL/min (70-130); Calcium 9.2 mg/dL (7.8-10.44); Carbon Dioxide 23 mmol/L (23-31); Chloride 111 mmol/L (98-107); Estimated GFR 46; Glucose 79 mg/dL (80-115); Potassium 4.1 mmol/L (3.5-5.1); Sodium 141 mmol/L (136-145)
[2024-02-13] MEDS ORDERED: Vancomycin (BATCH) 1.5 GM in Premix 1 BAG IVPB SCH (16:00)
[2024-02-13] MEDS: Vancomycin 1 GM in Premix 1 BAG IVPB SCH (16:04)
[2024-02-14 05:08] LABS: #Basophils 0.06 10x3/uL (0.0-0.2); %Basophils 0.8 % (0.0-1.0); %Eosinophils 2.6 % (0.0-10.0); %Lymphocytes 28.4 % (21.0-51.0); %Monocytes 7.4 % (0.0-10.0); %Neutrophils 60.3 % (42.0-75.0); Mean Corpuscular HGB CONC 34.1 g/dL (32.0-36.0); Mean Corpuscular Hemoglobin 31.5 pg (27.0-31.0); Mean Corpuscular Volume 92.1 fL (78.0-98.0); Mean Platelet Volume 11.2 fL (7.4-10.4); Platelet Count 204 10x3/uL (130-400); Red Blood Cell (RBC) Count 4.45 mill/uL (4.70-6.10)
[2024-02-14 05:24] LABS: Anion Gap 12 mmol/L (10-20); BUN (Urea Nitrogen) 25 mg/dL (8.4-25.7); Calc. Creatinine Clearance 68 mL/min (70-130); Calcium 9.2 mg/dL (7.8-10.44); Carbon Dioxide 22 mmol/L (23-31); Chloride 109 mmol/L (98-107); Estimated GFR 60; Glucose 80 mg/dL (80-115); Potassium 4.2 mmol/L (3.5-5.1); Sodium 139 mmol/L (136-145)
[2024-02-14 05:26] LABS: Vancomycin, Random 22.1 ug/mL (See Comment)
[2024-02-15 06:37] LABS: #Basophils 0.06 10x3/uL (0.0-0.2); %Basophils 0.7 % (0.0-1.0); %Eosinophils 2.3 % (0.0-10.0); %Lymphocytes 31.7 % (21.0-51.0); %Neutrophils 57.1 % (42.0-75.0); Hematocrit 40.9 % (42.0-52.0); Hemoglobin 14.1 g/dL (14.0-18.0); Mean Corpuscular HGB CONC 34.5 g/dL (32.0-36.0); Mean Corpuscular Hemoglobin 31.5 pg (27.0-31.0); Mean Corpuscular Volume 91.5 fL (78.0-98.0); Mean Platelet Volume 11.1 fL (7.4-10.4); Platelet Count 198 10x3/uL (130-400); Red Blood Cell (RBC) Count 4.47 mill/uL (4.70-6.10)
[2024-02-15 07:08] LABS: Anion Gap 12 mmol/L (10-20); BUN (Urea Nitrogen) 24 mg/dL (8.4-25.7); Calc. Creatinine Clearance 58 mL/min (70-130); Calcium 9.3 mg/dL (7.8-10.44); Carbon Dioxide 22 mmol/L (23-31); Chloride 107 mmol/L (98-107); Estimated GFR 50; Glucose 76 mg/dL (80-115); Potassium 3.9 mmol/L (3.5-5.1); Sodium 137 mmol/L (136-145)
[2024-02-16 06:40] LABS: #Basophils 0.06 10x3/uL (0.0-0.2); %Basophils 0.8 % (0.0-1.0); %Lymphocytes 29.4 % (21.0-51.0); %Monocytes 8.4 % (0.0-10.0); %Neutrophils 58.9 % (42.0-75.0); Hematocrit 41.6 % (42.0-52.0); Hemoglobin 14.5 g/dL (14.0-18.0); Mean Corpuscular HGB CONC 34.9 g/dL (32.0-36.0); Mean Corpuscular Hemoglobin 31.8 pg (27.0-31.0); Mean Corpuscular Volume 91.2 fL (78.0-98.0); Mean Platelet Volume 11.4 fL (7.4-10.4); Platelet Count 206 10x3/uL (130-400); RBC Distribution Width 11.9 % (11.5-14.5); Red Blood Cell (RBC) Count 4.56 mill/uL (4.70-6.10)
[2024-02-16 07:01] LABS: Anion Gap 14 mmol/L (10-20); BUN (Urea Nitrogen) 24 mg/dL (8.4-25.7); Calc. Creatinine Clearance 66 mL/min (70-130); Calcium 9.4 mg/dL (7.8-10.44); Carbon Dioxide 23 mmol/L (23-31); Chloride 104 mmol/L (98-107); Estimated GFR 58; Glucose 74 mg/dL (80-115); Potassium 4.1 mmol/L (3.5-5.1); Sodium 137 mmol/L (136-145)
[2024-02-16 07:05] LABS: Vancomycin, Random 21.2 ug/mL (See Comment)
[2024-02-17 06:26] LABS: #Basophils 0.08 10x3/uL (0.0-0.2); %Eosinophils 1.9 % (0.0-10.0); %Lymphocytes 28.6 % (21.0-51.0); %Neutrophils 60.1 % (42.0-75.0); Hematocrit 43.7 % (42.0-52.0); Hemoglobin 15.1 g/dL (14.0-18.0); Mean Corpuscular HGB CONC 34.6 g/dL (32.0-36.0); Mean Corpuscular Hemoglobin 30.7 pg (27.0-31.0); Mean Corpuscular Volume 88.8 fL (78.0-98.0); Mean Platelet Volume 10.9 fL (7.4-10.4); Platelet Count 203 10x3/uL (130-400); RBC Distribution Width 12.1 % (11.5-14.5); Red Blood Cell (RBC) Count 4.92 mill/uL (4.70-6.10)
[2024-02-17 06:42] LABS: Anion Gap 13 mmol/L (10-20); BUN (Urea Nitrogen) 26 mg/dL (8.4-25.7); Calc. Creatinine Clearance 65 mL/min (70-130); Calcium 9.6 mg/dL (7.8-10.44); Carbon Dioxide 22 mmol/L (23-31); Chloride 106 mmol/L (98-107); Estimated GFR 57; Glucose 79 mg/dL (80-115); Potassium 4.2 mmol/L (3.5-5.1); Sodium 137 mmol/L (136-145)
[2024-02-17] MEDS: Amoxicillin/Potassium Clav 875 MG TAB PO SCH (20:25)
[2024-02-20 15:22] VITALS: BMI 27.3
[2024-02-24 06:15] LABS: #Basophils 0.07 10x3/uL (0.0-0.2); %Basophils 0.8 % (0.0-1.0); %Eosinophils 2.1 % (0.0-10.0); %Lymphocytes 29.4 % (21.0-51.0); %Monocytes 8.3 % (0.0-10.0); Mean Corpuscular HGB CONC 34.1 g/dL (32.0-36.0); Mean Corpuscular Hemoglobin 31.4 pg (27.0-31.0); Mean Corpuscular Volume 92.2 fL (78.0-98.0); Mean Platelet Volume 11.7 fL (7.4-10.4); Platelet Count 204 10x3/uL (130-400); RBC Distribution Width 12.2 % (11.5-14.5); Red Blood Cell (RBC) Count 4.77 mill/uL (4.70-6.10)
[2024-02-24 06:27] LABS: Anion Gap 12 mmol/L (10-20); BUN (Urea Nitrogen) 36 mg/dL (8.4-25.7); Calc. Creatinine Clearance 54 mL/min (70-130); Calcium 9.4 mg/dL (7.8-10.44); Carbon Dioxide 23 mmol/L (23-31); Chloride 104 mmol/L (98-107); Estimated GFR 45; Glucose 77 mg/dL (80-115); Potassium 3.9 mmol/L (3.5-5.1); Sodium 135 mmol/L (136-145)
[2024-02-25 05:35] LABS: #Basophils 0.08 10x3/uL (0.0-0.2); %Basophils 0.9 % (0.0-1.0); %Eosinophils 1.9 % (0.0-10.0); %Lymphocytes 29.2 % (21.0-51.0); %Monocytes 7.5 % (0.0-10.0); %Neutrophils 60.2 % (42.0-75.0); Hematocrit 44.3 % (42.0-52.0); Hemoglobin 15.1 g/dL (14.0-18.0); Mean Corpuscular HGB CONC 34.1 g/dL (32.0-36.0); Mean Corpuscular Hemoglobin 31.5 pg (27.0-31.0); Mean Corpuscular Volume 92.5 fL (78.0-98.0); Mean Platelet Volume 11.6 fL (7.4-10.4); Platelet Count 206 10x3/uL (130-400); RBC Distribution Width 12.1 % (11.5-14.5); Red Blood Cell (RBC) Count 4.79 mill/uL (4.70-6.10)
[2024-02-25 07:00] LABS: Anion Gap 16 mmol/L (10-20); BUN (Urea Nitrogen) 35 mg/dL (8.4-25.7); Calc. Creatinine Clearance 51 mL/min (70-130); Calcium 9.5 mg/dL (7.8-10.44); Carbon Dioxide 23 mmol/L (23-31); Chloride 104 mmol/L (98-107); Estimated GFR 42; Glucose 75 mg/dL (80-115); Potassium 4.6 mmol/L (3.5-5.1); Sodium 138 mmol/L (136-145)
[2024-02-26 06:09] LABS: #Basophils 0.07 10x3/uL (0.0-0.2); %Basophils 0.8 % (0.0-1.0); %Eosinophils 1.5 % (0.0-10.0); %Lymphocytes 29.3 % (21.0-51.0); %Monocytes 7.2 % (0.0-10.0); %Neutrophils 60.8 % (42.0-75.0); Hematocrit 43.7 % (42.0-52.0); Hemoglobin 14.9 g/dL (14.0-18.0); Mean Corpuscular HGB CONC 34.1 g/dL (32.0-36.0); Mean Corpuscular Hemoglobin 31.5 pg (27.0-31.0); Mean Corpuscular Volume 92.4 fL (78.0-98.0); Mean Platelet Volume 11.6 fL (7.4-10.4); Platelet Count 197 10x3/uL (130-400); Red Blood Cell (RBC) Count 4.73 mill/uL (4.70-6.10)
[2024-02-26 06:30] LABS: Anion Gap 13 mmol/L (10-20); BUN (Urea Nitrogen) 35 mg/dL (8.4-25.7); Calc. Creatinine Clearance 54 mL/min (70-130); Calcium 9.4 mg/dL (7.8-10.44); Carbon Dioxide 24 mmol/L (23-31); Chloride 107 mmol/L (98-107); Estimated GFR 46; Glucose 74 mg/dL (80-115); Potassium 4.5 mmol/L (3.5-5.1); Sodium 139 mmol/L (136-145)
[2024-02-27 07:05] LABS: #Basophils 0.07 10x3/uL (0.0-0.2); %Basophils 0.8 % (0.0-1.0); %Eosinophils 1.8 % (0.0-10.0); %Lymphocytes 31.7 % (21.0-51.0); %Monocytes 7.4 % (0.0-10.0); %Neutrophils 57.8 % (42.0-75.0); Hematocrit 42.7 % (42.0-52.0); Hemoglobin 14.5 g/dL (14.0-18.0); Mean Corpuscular Hemoglobin 31.3 pg (27.0-31.0); Mean Corpuscular Volume 92.2 fL (78.0-98.0); Mean Platelet Volume 11.5 fL (7.4-10.4); Platelet Count 199 10x3/uL (130-400); RBC Distribution Width 12.1 % (11.5-14.5); Red Blood Cell (RBC) Count 4.63 mill/uL (4.70-6.10)
[2024-02-27 07:19] LABS: Anion Gap 11 mmol/L (10-20); BUN (Urea Nitrogen) 35 mg/dL (8.4-25.7); Calc. Creatinine Clearance 49 mL/min (70-130); Calcium 9.4 mg/dL (7.8-10.44); Carbon Dioxide 24 mmol/L (23-31); Chloride 107 mmol/L (98-107); Estimated GFR 41; Glucose 77 mg/dL (80-115); Potassium 4.4 mmol/L (3.5-5.1); Sodium 138 mmol/L (136-145)
[2024-02-28 10:25] LABS: #Basophils 0.06 10x3/uL (0.0-0.2); %Basophils 0.7 % (0.0-1.0); %Eosinophils 1.9 % (0.0-10.0); %Lymphocytes 27.8 % (21.0-51.0); %Neutrophils 61.4 % (42.0-75.0); Hematocrit 44.2 % (42.0-52.0); Hemoglobin 15.1 g/dL (14.0-18.0); Mean Corpuscular HGB CONC 34.2 g/dL (32.0-36.0); Mean Corpuscular Hemoglobin 31.7 pg (27.0-31.0); Mean Corpuscular Volume 92.7 fL (78.0-98.0); Mean Platelet Volume 11.6 fL (7.4-10.4); Platelet Count 197 10x3/uL (130-400); RBC Distribution Width 12.1 % (11.5-14.5); Red Blood Cell (RBC) Count 4.77 mill/uL (4.70-6.10)
[2024-02-28 10:30] LABS: Anion Gap 13 mmol/L (10-20); BUN (Urea Nitrogen) 33 mg/dL (8.4-25.7); Calc. Creatinine Clearance 52 mL/min (70-130); Calcium 9.7 mg/dL (7.8-10.44); Carbon Dioxide 27 mmol/L (23-31); Chloride 105 mmol/L (98-107); Estimated GFR 44; Glucose 84 mg/dL (80-115); Potassium 4.1 mmol/L (3.5-5.1); Sodium 141 mmol/L (136-145)
[2024-02-28] MEDS: Lorazepam 1 MG TAB PO SCH (21:34)
[2024-02-28] MEDS: Lorazepam 2 MG/ML VIAL SLOW IVP SCH (22:09)
[2024-03-03 07:46] VITALS: BP 104/71; TEMP 98.6
== END 2024-03-03 13:12 | DRG 690 ==
LOC: ERS 19:56 → OBSVTOIN 23:04 → INTOOBSV 23:04 → SURG A 23:04 → OBSVTOIN 02-13 09:49
PROVIDERS: ADMIT Student in an Organized Health Care Education/Training Program; ATTEND Internal Medicine
DX: N10 Acute pyelonephritis (principal); N17.9 Acute kidney failure, unspecified; F15.10 Other stimulant abuse, uncomplicated; I12.9 Hypertensive chronic kidney disease with stage 1 through stage 4 chronic kidney disease, or unspecified chronic kidney disease; I25.10 Atherosclerotic heart disease of native coronary artery without angina pectoris; N18.30 Chronic kidney disease, stage 3 unspecified; G47.33 Obstructive sleep apnea (adult) (pediatric); E78.5 Hyperlipidemia, unspecified; B96.89 Other specified bacterial agents as the cause of diseases classified elsewhere; G40.909 Epilepsy, unspecified, not intractable, without status epilepticus; I69.320 Aphasia following cerebral infarction; I69.391 Dysphagia following cerebral infarction; Z79.82 Long term (current) use of aspirin; Z79.899 Other long term (current) drug therapy; Z98.890 Other specified postprocedural states; Z71.51 Drug abuse counseling and surveillance of drug abuser
CPT/HCPCS: 36415; 70450; 71045; 74176; 80048; 80053; 80202; 80306; 80307; 81001; 82550; 82565; 83605; 83690; 83735; 84443; 84484; 85025; 87040; 87077; 87086; 87149; 87186; 93005; 96361; 96365; 96375; 96376; G0378; J0696; J2060; J3370; J3370-JW; J3490; S0028

== ENCOUNTER 2024-06-25 17:57 | Emergency (ER) | payer OTHER, SELFPAY ==
[2024-06-25] MEDS ORDERED: Dexamethasone 10 MG/ML VIAL ONE (21:06)
== END 2024-06-25 21:12 | disposition home or self-care (01) ==
LOC: ERS 17:57
DX: R60.9 Edema, unspecified (principal); I10 Essential (primary) hypertension
CPT/HCPCS: 71046; J1100